=== PATIENT | female | born 1940 | race Caucasian/White ===

== ENCOUNTER 2018-08-29 11:19 | Outpatient (CLI) | payer MEDICARE, OTHER ==
[2018-08-29] MEDS ORDERED: Sodium Chloride 0.9% 15 ML NEB ONE (15:00)
--- NOTE | 2018-08-30 01:19 | HP ---
HISTORY OF PRESENT ILLNESS: Ms. Mila Lopez is a very pleasant 78-year-old, who presents to the [facility] for evaluation of multiple nonhealing surgical wounds of the abdomen in the midline subsequent to surgery for an incarcerated ventral hernia in [place], followed by a second surgical procedure in [place] when the patient was found to have fecal material draining from her surgical wound. The patient states that she received wound care in [place] for approximately 1 year. The patient has returned home to [place] and was referred to the Wound Center by Dr. Beatty on 08/19/2018. PAST MEDICAL HISTORY: 1. Hypothyroidism. 2. History of hypertension. PAST SURGICAL HISTORY: 1. Gastric bypass with Stacie-en-Y. 2. Revision of gastric bypass. 3. Cholecystectomy. 4. Left knee surgery. 5. Removal of uterine polyps. 6. Tummy tuck. 7. Surgery for incarcerated ventral hernia in [place]. 8. Exploratory laparotomy in [place] following incarcerated hernia repair with mesh. 9. Cataract surgery. MEDICATIONS: 1. Vitamin B12. 2. Biotin. 3. Vitamin C. 4. Systane. 5. Coenzyme Q10. 6. [place]-3. 7. Potassium chloride. 8. Bupropion. 9. Levothyroxine. 10. Clonazepam. 11. Calcium 600 plus vitamin D. 12. Multivitamin. 13. Loperamide. 14. Motrin. 15. Cetirizine. ALLERGIES: NO KNOWN DIAGNOSED ALLERGIES. SOCIAL HISTORY: Negative for tobacco or EtOH use. FAMILY HISTORY: Significant for coronary artery disease. The patient states that her mother and father were both diagnosed with coronary artery disease. PHYSICAL EXAMINATION: VITAL SIGNS: Temperature 98.1, pulse 65, respirations 20, blood pressure 175/77. GENERAL: A 78-year-old female, lying on table in examination room, in no acute distress. HEENT: Normocephalic and atraumatic. NECK: No nuchal rigidity. CHEST: Clear to auscultation. CV: Regular rate and rhythm. ABDOMEN: Soft. Multiple nonhealing surgical wounds of the abdomen in the midline are present. Two of the wounds contain mesh within the wound margins. No grossly purulent drainage is associated with any of the wounds. No erythema of the skin surrounding any of the wounds is present. No maceration of the skin of the periwound of any of the wounds is noted. EXTREMITIES: No clubbing or cyanosis. NEURO: Grossly nonfocal. ASSESSMENT AND PLAN: 1. Multiple nonhealing surgical wounds of abdomen in the midline as described above. The present dressing changes of Aquacel Ag, gauze and Mepilex border will be continued 3 times per week after cleansing and irrigation with the assistance of home health. I will contact the patient's surgeon in order to discuss the treatment plan. I will see Ms. Lopez again in 3 weeks. The patient understands and is in agreement with the preceding plan of care. No antibiotics will be prescribed today based upon the appearance of the wounds. 2. Hypothyroidism. 3. History of hypertension. Job ID: [id number]
== END 2018-08-29 11:20 | disposition home or self-care (01) ==
LOC: WCC 11:19
PROVIDERS: ATTEND Family Medicine
DX: T81.89XD Other complications of procedures, not elsewhere classified, subsequent encounter (principal); E03.9 Hypothyroidism, unspecified; I10 Essential (primary) hypertension; Z98.890 Other specified postprocedural states
CPT/HCPCS: 97139; 97602; G0463; 99203; A4218

== ENCOUNTER 2018-09-18 12:17 | Outpatient (CLI) | payer MEDICARE, OTHER ==
[2018-09-18] MEDS ORDERED: Gadobenate Dimeglumine 529 MG/1 ML (20ML VIAL) ONE (13:25)
--- NOTE | 2018-09-18 16:02 | MRI ---
BRAIN MRI WITH AND WITHOUT CONTRAST 09/18/18 HISTORY: Meningioma. TECHNIQUE: Multiplanar and multisequence MR imaging of the brain is provided with and without contrast. FINDINGS: The diffusion weighted imaging demonstrates no evidence for acute infarction. There is an extra-axial mass medial to the right occipital lobe which measures 1.8 x 2.1 x 2.3 cm. It demonstrates heterogeneity on the FLAIR imaging, primarily hyperintense with central decreased FLAIR signal. On the T2 imaging, it is primarily isointense with an area of decreased signal intensity. Gr adient echo imaging demonstrates a few foci of blooming artifact within the lesion suggesting calcifi cation. Gradient echo imaging demonstrates no additional areas of blooming artifact. The above descri bed extra-axial mass medial to the right occipital lobe demonstrates avid enhancement. Findings are most consistent with a meningioma. Postcontrast imaging demonstrates no additional foci of abnormal enhancement. There is no midline shift. No ventricular enlargement. Arterial flow voids at the axial level of the skull base appear grossly unremarkable on the T2 weighted imaging. There are a few foci of increased signal intensity within the periventricular white matter, suggesting a mild degree of small vessel di sease. IMPRESSION: Enhancing extra-axial mass medial to the right occipital lobe, with signal characteristics most consi stent with a meningioma. If the patient's prior imaging can be made available for comparison, an addendum can be placed on thi s report regarding its size on the prior study. POS: ARLETTE
--- NOTE | 2018-09-18 16:08 | MRI ---
MRI CERVICAL SPINE: Date; 09/18/18 COMPARISON: None. HISTORY: Neck pain and stiffness, imbalance. TECHNIQUE: Multiplanar, multisequence MR imaging of the cervical spine obtained without contrast. FINDINGS: Incompletely assessed extra-axial mass noted in right occipital lobe most consistent with a meningiom a, better assessed on 09/18/18 brain MRI. The sagittal STIR imaging demonstrates no focal area of osseous marrow edema. There is mild degenerative change at the atlantoaxial interspace. C2-3: Mild bilateral facet hypertrophy. No significant central canal or neural foraminal stenosis. C3-4: Mild facet hypertrophy on the left. No significant central canal or neural foraminal stenosis. C4-5: Central annular tear. Mild disc bulge with partial effacement of ventral thecal sac and minima l central canal stenosis. Mild bilateral facet hypertrophy with no significant neural foraminal steno sis. C5-6: Disc space narrowing, disc desiccation, mild disc bulge, and central annular tear with mild ce ntral canal stenosis. Mild facet hypertrophy with no significant neural foraminal stenosis on either side. C6-7: Disc desiccation. Mild facet hypertrophy bilaterally with no significant central canal or neur al foraminal stenosis. C7-T1: No significant central canal or neural foraminal stenosis. No focal area of abnormal signal intensity is identified within the cervical cord. IMPRESSION: Degenerative change noted within the cervical spine, particularly C4-5 and C5-6 as detailed above. POS: ARLETTE
== END 2018-09-18 12:18 | disposition home or self-care (01) ==
LOC: BICMRI 12:17
PROVIDERS: ATTEND Psychiatry & Neurology Neurology
DX: D32.9 Benign neoplasm of meninges, unspecified (principal); R26.89 Other abnormalities of gait and mobility; M47.812 Spondylosis without myelopathy or radiculopathy, cervical region; R22.0 Localized swelling, mass and lump, head
CPT/HCPCS: 70553; 72141; 82565; A9579

== ENCOUNTER 2018-09-19 11:35 | Outpatient (CLI) | payer MEDICARE, OTHER ==
--- NOTE | 2018-09-19 12:34 | PRG ---
DATE OF SERVICE: 09/19/2018 HISTORY: Ms. Mila Lopez is a very pleasant 78-year-old, who presents to the wound center for evaluation of multiple nonhealing surgical wounds of the abdomen in the midline subsequent to surgery for an incarcerated ventral hernia in [place] followed by second surgical procedure in [place] when the patient was found to have fecal material draining from her surgical wound. The patient stated that she received wound care in [place] for approximately 1 year. The patient subsequently returned home to [place] and was referred to the wound center by Dr. Beatty on 08/19/2018. After being seen in the wound center, dressing changes of Aquacel Ag, 4x4s, and Mepilex border were initiated. These dressing changes have been performed 3 times per week after cleansing and irrigation with the assistance of Home Health. PHYSICAL EXAMINATION: VITAL SIGNS: Temperature 97.7, pulse 81, respirations 18, and blood pressure 133/69. ABDOMEN: Soft. Three nonhealing surgical wounds of the abdomen in the midline are present. Mesh is visible within the most superior wound. No grossly purulent drainage is associated with any of the wounds. No erythema of the skin surrounding any of the wounds is present. No maceration of the skin of the periwound of any of the wounds is noted. The dimensions of two of the wounds have decreased since the patient's last visit. ASSESSMENT AND PLAN: 1. Multiple nonhealing surgical wounds of abdomen in the midline as described above. Dressing changes of Aquacel Ag, gauze, and Mepilex border will be continued 3 times per week after cleansing and irrigation with the assistance of Home Health. I will discuss the treatment plan with the patient's surgeon Dr. Eliz Trujillo, who is located in [place], [place]. I have asked the patient to return to clinic in 2 weeks. 2. Hypothyroidism. 3. Hypertension. Job ID: [id number]
[2018-09-19] MEDS ORDERED: Sodium Chloride 0.9% 15 ML NEB ONE (17:44)
== END 2018-09-19 11:36 | disposition home or self-care (01) ==
LOC: WCC 11:35
PROVIDERS: ATTEND Family Medicine
DX: T81.89XD Other complications of procedures, not elsewhere classified, subsequent encounter (principal); E03.9 Hypothyroidism, unspecified; I10 Essential (primary) hypertension
CPT/HCPCS: A4218

== ENCOUNTER 2018-10-10 09:43 | Outpatient (CLI) | payer MEDICARE, OTHER ==
--- NOTE | 2018-10-10 11:24 | PRG ---
DATE OF SERVICE: 10/10/2018 HISTORY: Ms. Mila Lopez is a very pleasant 78-year-old who presents to the Wound Center for evaluation of multiple nonhealing surgical wounds of the abdomen in the midline subsequent to surgery for an incarcerated ventral hernia in [place] followed by a second surgical procedure in [place] when the patient was found to have fecal material draining from her surgical wound. The patient stated that she received wound care in [place] for approximately 1 year. The patient subsequently returned home to [place] and was referred to the Wound Center by Dr. Beatty on 08/19/2018. After being seen in the Wound Center, dressing changes of Aquacel Ag, 4x4s, and Mepilex Border were initiated. These dressing changes have been performed 3 times per week after cleansing and irrigation with the assistance of Home Health. PHYSICAL EXAMINATION: VITAL SIGNS: Temperature 97.6, pulse 72, respirations 20, and blood pressure 145/82. ABDOMEN: Soft. Only one nonhealing surgical wound of the abdomen in the midline remains. Mesh is visible within the wound margins. Nonviable tissue present within the wound margins was debrided with an excisional full-thickness debridement with the use of scissors. No purulent drainage is associated with the wound. No erythema of the skin surrounding the wound is present. No maceration of the skin of the periwound is noted. ASSESSMENT AND PLAN: 1. Multiple nonhealing surgical wounds of the abdomen in the midline as described above. As stated above, only one nonhealing surgical wound of the abdomen in the midline remains. Dressing changes of Aquacel Ag and Mepilex Border are to be performed 3 times per week after cleansing and irrigation with the assistance of Home Health. I have discussed the treatment plan with the patient's surgeon, Dr. Eliz Trujillo, who is located in [place], [place]. Ms. Lopez as per her request will return to the Wound Center on an as-needed basis. 2. Hypothyroidism. 3. Hypertension. Job ID: [id number]
[2018-10-10] MEDS ORDERED: Sodium Chloride 0.9% 15 ML NEB ONE (15:00)
== END 2018-10-10 09:44 | disposition home or self-care (01) ==
LOC: WCC 09:43
PROVIDERS: ATTEND Family Medicine
DX: T81.89XD Other complications of procedures, not elsewhere classified, subsequent encounter (principal); E03.9 Hypothyroidism, unspecified; I10 Essential (primary) hypertension

== ENCOUNTER 2018-12-03 04:15 | Inpatient (IN) | payer MEDICARE, OTHER ==
[2018-12-03 04:40] LABS: #Eosinphils 0.1 thou/uL (0.0-0.7); #Lymphocytes 1.1 thou/uL (1.20-3.40); #Monocytes 0.7 thou/uL (0.11-0.59); #Neutrophils 3.8 thou/uL (1.40-6.50); %Basophils 0.5 % (0.0-1.0); %Lymphocytes 19.8 % (21.0-51.0); %Monocytes 11.8 % (0.0-10.0); %Neutrophils 66.9 % (42.0-75.0); Hemoglobin 12.9 g/dL (12.0-16.0); Mean Corpuscular HGB CONC 32.1 g/dL (32.0-36.0); Mean Corpuscular Hemoglobin 28.4 pg (27.0-31.0); Mean Corpuscular Volume 88.6 fL (78.0-98.0); Mean Platelet Volume 7.5 fL (7.4-10.4); Platelet Count 226 thou/uL (130-400); RBC Distribution Width 13.9 % (11.5-14.5); Red Blood Cell (RBC) Count 4.53 mill/uL (4.20-5.40); White Blood Cell (WBC) Count 5.7 thou/uL (4.8-10.8)
[2018-12-03] MEDS ORDERED: Morphine 4 MG/ML VIAL ONE ×2 (04:45→11:01)
[2018-12-03] MEDS ORDERED: Ondansetron PF 4 MG/2 ML Vial ONE ×2 (04:45→09:53)
[2018-12-03 05:01] LABS: ALT (SGPT) 23 U/L (8-55); AST (SGOT) 24 U/L (5-34); Alkaline Phosphatase 128 U/L (40-150); Anion Gap 15 mmol/L (10-20); BUN (Urea Nitrogen) 17 mg/dL (9.8-20.1); Calc. Creatinine Clearance 0 mL/min (70-130); Calcium 9.6 mg/dL (7.8-10.44); Carbon Dioxide 25 mmol/L (23-31); Chloride 101 mmol/L (98-107); Estimated GFR-MDRD 77; Globulin 4.1 g/dL (2.4-3.5); Glucose 114 mg/dL (83-110); Potassium 3.6 mmol/L (3.5-5.1); Protein, Total 8.1 g/dL (6.0-8.3); Sodium 137 mmol/L (136-145)
[2018-12-03 05:22] LABS: Bilirubin Negative (Negative); Blood, Urine Negative (Negative); Clarity CLEAR (Clear); Glucose, Urine (Dipstick) Negative (Negative); Leukocyte Small (Negative); Nitrite Negative (Negative); Protein, Urine (Dipstick) Trace mg/dL (Neg-Trace); Specific Gravity, Urine 1.017 (1.002-1.036)
[2018-12-03 05:24] LABS: Bacteria/HPF None Seen HPF (None Seen); Hyaline Casts/LPF 0-3 HYALINE CAST LPF (0-3 Hyaline); Pathc Cast-AUWi Flag 0.27 (0-2.49); Squamous Epithelial 0-3 HPF (0-3)
[2018-12-03] MEDS ORDERED: Ciprofloxacin HCL/Dexameth Otic Drops 7.5 ml Bottle ONE (06:53)
[2018-12-03] MEDS ORDERED: metroNIDAZOLE 500 MG/100 ML BAG ONE (07:43)
--- NOTE | 2018-12-03 08:07 | HP ---
PRIMARY CARE PROVIDER: Theresa Beatty DO HISTORY OF PRESENT ILLNESS: Referred to [facility] by [facility] for abdominal pain. The patient has had abdominal pain and swelling for 3 to 4 days. She has an ileostomy and she has had nausea without emesis. She has had output from her ileostomy today. She has had no fever or chills. She has had no blood in her ostomy drainage. She was seen and examined. CAT scan was done. She was referred to Dr. Griffin, general surgery, who referred the admission to [facility]. PAST MEDICAL HISTORY: Includes hypothyroidism on medicines, anxiety and depression. CURRENT MEDICATIONS: 1. Bupropion 100 mg 3 times a day. 2. Levothyroxine 200 mcg a day. 3. Clonazepam 0.5 mg once a day. 4. Questran 4 g daily. 5. Zyrtec 10 mg twice a day. PAST SURGICAL HISTORY: She had an incarcerated ventral hernia, which costs to emergency surgery. She ended up with a colectomy and ileostomy. This was several months ago. She had a gastric bypass 20 years ago. She has had multiple ventral hernia repairs in the past. She has had a tummy tuck in the past. ALLERGIES: NO MEDICAL ALLERGIES. FAMILY HISTORY: Father of coronary artery disease. He had hypertension. Mother after valve replacement post scarlet fever as a child. She also had hypertension. SOCIAL HISTORY: She is . Full code status. Daughter, Jessie Shook is the surrogate decision maker. She has no tobacco. No alcohol use. REVIEW OF SYSTEMS: GENERAL: No headaches, dizziness or fainting. EYES: No double vision, blurred vision or flashing lights. EAR, NOSE AND THROAT: No ear pain or drainage. No nasal bleeding. No trouble swallowing. CARDIAC: No chest pain, orthopnea, or paroxysmal nocturnal dyspnea. RESPIRATIONS: Occasional shortness of breath. No wheezing. No cough. No history of asthma. GASTROINTESTINAL: See present illness. GENITOURINARY: No hematuria or dysuria. MUSCULOSKELETAL: No pain or swelling in arms or legs. NEUROLOGICAL: No strokes, seizures, or focal weakness. PSYCHIATRIC: She has anxiety and depression, stable on current medications. SKIN: She has easy bruising. No current bruising. No rashes. HEME/LYMPH: No tender or swollen lymph nodes in the axilla, inguinal or cervical area. PHYSICAL EXAMINATION: GENERAL: She is alert, pleasant, cooperative lady, oriented x3. VITAL SIGNS: Blood pressure 110/57, pulse ranging from 53-86, respirations 16, temperature 97.5, O2 saturation high 90s on room air. HEENT: Examination of her head, eyes, ears, nose, and throat revealed pupils are equal, round, and reactive to light. Extraocular movements are intact. Sclerae are white. Tympanic membranes clear. Nose is clear. Oral mucous membranes are wet. Dental hygiene is good. NECK: Supple without jugular venous distention, adenopathy or thyromegaly. CHEST: Clear to auscultation and percussion. HEART: Had a regular rate and rhythm. First and second heart sounds are clear. There are no appreciated murmurs or gallops. ABDOMEN: Reveals an ileostomy in the lower abdomen. There are multiple scars. There were a couple of nonhealing wounds bandaged in the epigastrium. She is nontender and bowel sounds are present. No mass was palpated. No peritoneal findings were found. No bruit. EXTREMITIES: Reveal no cyanosis, clubbing, or edema. PULSES: Carotid, radial, femoral, and dorsalis pedis pulses intact and symmetric. SKIN: Warm and dry. No bruises or rash were appreciated. HEME AND LYMPH: Reveals no tender or swollen lymph nodes in axilla, inguinal or cervical area. No petechial hemorrhages, nasal beds or mucous membranes. NEUROLOGIC: Cranial nerves 2 through 12 are intact. Deep tendon reflexes symmetric. Moves all extremities. DIAGNOSTIC STUDIES: Chest x-ray, none presented, one is ordered. EKG, none presented, one is ordered. Abdominal CT scan has been done that shows a large amount of small bowel and a ventral hernia, but no definite obstruction. UA shows 11-20 white cells, but no significant esterase or nitrite. Comprehensive metabolic profile is really unremarkable except for glucose of 114. CBC shows a white count of 5.7, hemoglobin 12.9, platelet count 226, with no neutrophilia. ADMITTING DIAGNOSES: 1. Abdominal pain. 2. Ventral hernia with small bowel contents in the ventral hernia. 3. Ileostomy. 4. Hypothyroidism. 5. Anxiety and depression. PLAN: N.p.o. IV antibiotics as ordered by Dr. Griffin. We will discuss case with Dr. Griffin and proceed from there. I anticipate 3-4 days admission for evaluation and treatment of this patient. Job ID: [id number]
--- NOTE | 2018-12-03 08:21 | CT ---
CT ABDOMEN AND PELVIS WITH IV CONTRAST: HISTORY: Abdominal pain with decreased colostomy output. History of ileostomy and colectomy with complication s related to an incarcerated hernia. FINDINGS: The lung bases are clear. The gallbladder is surgically absent. There is mild intrahepatic and extrahepatic biliary ductal dil atation, likely related to the patient's post cholecystectomy state. The spleen, pancreas, and adrenal glands are normal appearing. The kidneys are normal appearing. There is a large anterior abdominal wall hernia, containing a majority of the small bowel. There is post surgical change of a partial colectomy, with residual transverse colon, splenic colon, descendin g colon, sigmoid colon, and rectum remaining. The are scattered diverticula involving the colon with out evidence of active diverticulitis. There are numerous loops of small bowel within the central ab domen that demonstrates wall thickening with surrounding mesenteric edema. There is no evidence to s uggest prominent dilatation, to suggest partial small bowel obstruction. There is post surgical change of a prior gastric bypass. A small bowel anastomosis is seen within th e hernia sac. Ileocolonic anastomotic is seen within the left mid abdomen. There is a left lower qu adrant loop ileostomy. The bladder is decompressed. The visualized aspects of the uterus demonstrate multiple small fibroid s. No free fluid is evident. No definite acute osseous abnormality is evident. There is scattered degenerative and osteoarthritic change. There is diffuse osteopenia. IMPRESSION: 1. Large anterior abdominal wall hernia, containing a majority of the patient's small bowel, with nu merous loops of small bowel demonstrating wall thickening, with surrounding mesenteric edema. Findin gs are suspicious for diffuse enteritis that may be infectious, inflammatory, or ischemic in etiology ; however, there appears to be good opacification of the mesenteric vessels on this examination. Inf lammatory or infectious etiology are favored. 2. Post surgical change of gastric bypass, cholecystectomy, partial colectomy, and left lower quadra nt diverting ileostomy. 3. Colonic diverticulosis. 4. Fibroid uterus. 5. Diffuse osteopenia and scattered degenerative change. POS: BH
[2018-12-03] MEDS ORDERED: Morphine 4 MG/ML VIAL SLOW IVP PRN (09:50)
[2018-12-03] MEDS ORDERED: Ondansetron ODT 4 MG TAB PO PRN (09:50)
[2018-12-03] MEDS ORDERED: Zolpidem Tartrate 5 MG TAB PO PRN (09:50)
[2018-12-03] MEDS ORDERED: Acetaminophen 650 MG Suppository PR PRN (09:50)
--- NOTE | 2018-12-03 10:05 | RAD ---
EXAM: Chest 2 views: HISTORY: Small bowel obstruction COMPARISON: 09/25/2016 FINDINGS: There is a normal-sized cardiomediastinal silhouette. There is no evidence of consolidation, mass, or pleural effusion. Degenerative changes are seen in the spine. IMPRESSION: No evidence of acute cardiopulmonary disease
[2018-12-03] MEDS ORDERED: ISOVUE-370 76%-LOCM 1 ML ONE (13:41)
--- NOTE | 2018-12-03 14:48 | CON ---
DATE OF CONSULTATION: CHIEF COMPLAINT: Abdominal pain. HISTORY: A 78-year-old female, who about 25 years ago underwent an open Stacie-en-Y gastric bypass in [place], she had some type of obstruction requiring a revision couple of years later, then developed incisional hernias that was repaired without mesh. She then underwent an abdominoplasty and that was with mesh and she developed a mesh erosion into the bowel. With that, she had fistulas and they brought up the colostomy. In 2016, she had an incarcerated ventral hernia that occurred in [place]. It was repaired in August. She had a fistula to the small bowel that was resected and she was discharged. Recently, she was on vacation at [facility], when she developed stool fistula from her abdominal wall. She was taken back. She had a necrotic anterior abdominal wall, this was all resected. They had to do a right hemicolectomy in order to restore an ostomy and they brought up the ileostomy on the left side of her abdomen. Since then, she has been slowly healing with home health and wound care. She does have a small sinus tract on the anterior abdominal wall that she says occasionally drains greenish enteric fluid. Her ostomy has been working. She denies any fever. No bleeding. PAST MEDICAL HISTORY: Hypothyroidism, depression, anxiety, rheumatoid arthritis, uterine prolapse, and rectocele. MEDICATIONS: She is on; 1. Synthroid. 2. Multivitamins. 3. Ambien. ALLERGIES: SHE HAS NO KNOWN DRUG ALLERGIES. SOCIAL HISTORY: She lives alone in [place]. No tobacco. No alcohol. She is retired. FAMILY HISTORY: Heart disease, hypertension, and Parkinson disease. PHYSICAL EXAMINATION: VITAL SIGNS: She is afebrile, pulse 59, blood pressure 134/75. GENERAL: She is awake, alert, does not appear to be in any distress. HEENT: Unremarkable. LUNGS: Clear. HEART: Regular rate and rhythm. ABDOMEN: She has complete loss of abdominal domain. The anterior abdominal wall is gone, so she had basically a large hernia. She has an ileostomy on the left lateral abdomen that is pink, healthy-appearing, and there is enteric fluid within the bag. She does have about 4 mm sinus tract on the midline that has minimal drainage and no obvious enteric fluid. LABORATORY DATA: White count 5.7, hemoglobin and hematocrit of 12 and 40, platelet count 226. Electrolytes are fine, but an elevated glucose at 114. Her CT scan shows loss of the anterior abdominal wall with all over viscera within this hernia. There is some remaining colon on the left side. There is some wall thickening of the several loops of small bowel with some mesenteric edema but no dilatation. There is no evidence of a small-bowel obstruction. ASSESSMENT: Loss of abdominal domain, abdominal pain of unclear etiology. No surgical indication at this time. PLAN: IV hydration, perhaps a GI consult. Job ID: [id number]
[2018-12-03 17:11] VITALS: BMI 35.2
[2018-12-03] MEDS: D5 1/2 NS w/20 mEq KCL 1,000 ML IV SCH ×3 (17:11→22:43)
[2018-12-04] MEDS ORDERED: Sodium Chloride 0.9% 500 ML IV SCH (00:45)
[2018-12-04] MEDS: D5 1/2 NS w/20 mEq KCL 1,000 ML IV SCH ×2 (01:50→07:57)
[2018-12-04 05:23] LABS: ALT (SGPT) 15 U/L (8-55); AST (SGOT) 19 U/L (5-34); Alkaline Phosphatase 94 U/L (40-150); Anion Gap 8 mmol/L (10-20); BUN (Urea Nitrogen) 9 mg/dL (9.8-20.1); Band 2 % (5-11); Bilirubin, Total 0.4 mg/dL (0.2-1.2); Calc. Creatinine Clearance 101 mL/min (70-130); Calcium 8.2 mg/dL (7.8-10.44); Carbon Dioxide 27 mmol/L (23-31); Chloride 107 mmol/L (98-107); Eosinophils 2 % (0-10); Estimated GFR-MDRD Greater than 90; Globulin 2.9 g/dL (2.4-3.5); Glucose 108 mg/dL (83-110); Lymphocytes 28 % (21-51); MDiff Complete? YES; Mean Corpuscular HGB CONC 31.9 g/dL (32.0-36.0); Mean Corpuscular Volume 90.8 fL (78.0-98.0); Mean Platelet Volume 7.5 fL (7.4-10.4); Monocytes 13 % (0-10); Neutrophil 55 % (42-75); Platelet Count 181 thou/uL (130-400); Platelet Morphology Comment Appears Adequate; Potassium 3.7 mmol/L (3.5-5.1); Protein, Total 5.9 g/dL (6.0-8.3); RBC Distribution Width 13.8 % (11.5-14.5); Red Blood Cell (RBC) Count 3.46 mill/uL (4.20-5.40); Sodium 138 mmol/L (136-145); White Blood Cell (WBC) Count 2.8 thou/uL (4.8-10.8)
[2018-12-04] MEDS ORDERED: Sodium Chloride 0.9% 1,000 ML IV SCH (14:00)
[2018-12-04 14:24] LABS: #Lymphocytes 0.8 thou/uL (1.20-3.40); #Monocytes 0.3 thou/uL (0.11-0.59); #Neutrophils 1.2 thou/uL (1.40-6.50); %Lymphocytes 35.1 % (21.0-51.0); %Monocytes 12.2 % (0.0-10.0); %Neutrophils 50.7 % (42.0-75.0); Hemoglobin 10.2 g/dL (12.0-16.0); Mean Corpuscular HGB CONC 31.3 g/dL (32.0-36.0); Mean Corpuscular Hemoglobin 28.5 pg (27.0-31.0); Mean Corpuscular Volume 90.8 fL (78.0-98.0); Mean Platelet Volume 7.2 fL (7.4-10.4); Platelet Count 187 thou/uL (130-400); RBC Distribution Width 13.7 % (11.5-14.5); Red Blood Cell (RBC) Count 3.57 mill/uL (4.20-5.40); White Blood Cell (WBC) Count 2.4 thou/uL (4.8-10.8)
--- NOTE | 2018-12-04 15:02 | PRG ---
DATE OF SERVICE: 12/04/2018 SUBJECTIVE: The patient is seen and examined at the bedside. She feels somewhat better. Her abdominal pain improved since yesterday. No nausea. No vomiting. She has liquidy stool in her ostomy bag. OBJECTIVE: VITAL SIGNS: Blood pressure is 91/53, pulse is 42, temperature 97.6, respirations 18, O2 saturation is 96% on room air. HEENT: Her head is atraumatic and normocephalic. Eyes are PERRLA. Sclerae are nonicteric. Oral mucosa is somewhat dry. NECK: Supple. LUNGS: Clear. HEART: S1 and S2. Bradycardic. No S3. No S4. No any murmur. ABDOMEN: Soft. She has ileostomy bag on the left side with liquid stool. There is no guarding. No masses. EXTREMITIES: No clubbing, cyanosis, or edema. NEUROLOGIC: She is alert and oriented x4. There is no any motor or sensory deficits present. Cranial nerves are intact. LABORATORY DATA: Labs showed white count of 2.8, hemoglobin 10.0, hematocrit 31.5, platelet count is 181,000. Electrolytes within normal limits. BUN 9, creatinine 0.59, total protein 5.9, albumin 3.0. The rest of chemistry is within normal limits. IMPRESSION: 1. Abdominal pain of unclear etiology with hemoglobin drop overnight from 12.9 to 10.0 this morning likely it is just delusional with IV fluid use. 2. Normocytic anemia. Sounds like this is her baseline. The current hemoglobin and hematocrit level reflects her normal state of ventral hernia with small bowel content in the ventral hernia. 3. Ileostomy. 4. Hypothyroidism. 5. Anxiety and depression. 6. Bradycardia. EKG was done and it showed sinus bradycardia, but the patient had some hypotensive episode which is felt to be secondary to morphine. PLAN: Plan is to stop using morphine. Sent her to telemetry bed to monitoring bed. Get GI consult with Dr. Shepherd for further evaluation of her abdominal pain and get additional set of hemoglobin and hematocrit today. Job ID: [id number]
--- NOTE | 2018-12-04 16:35 | PRG ---
DATE OF SERVICE: SUBJECTIVE: The patient reports she is feeling a lot better today. She is still having some pain, but it is better. No nausea or vomiting. Ostomy is working well. OBJECTIVE: GENERAL: She is awake, alert, does not appear to be in any distress. VITAL SIGNS: Temperature is 97.6, pulse is 47, blood pressure 100/63. ABDOMEN: Soft, nondistended, and nontender. Ostomy is healthy and working. LABORATORY DATA: Her white count is only 2.4, hemoglobin and hematocrit of 10 and 32, platelet count 187. Electrolytes look fine. PLAN: Recommend possible GI consultation. Job ID: [id number]
[2018-12-04] MEDS: Sodium Chloride 0.9% 1,000 ML IV SCH ×2 (20:46→22:15)
[2018-12-05 07:03] LABS: #Monocytes 0.3 thou/uL (0.11-0.59); #Neutrophils 0.9 thou/uL (1.40-6.50); %Basophils 0.8 % (0.0-1.0); %Eosinophils 1.6 % (0.0-10.0); %Lymphocytes 43.3 % (21.0-51.0); %Monocytes 13.3 % (0.0-10.0); Hemoglobin 10.1 g/dL (12.0-16.0); Mean Corpuscular HGB CONC 31.6 g/dL (32.0-36.0); Mean Corpuscular Hemoglobin 28.5 pg (27.0-31.0); Mean Corpuscular Volume 90.3 fL (78.0-98.0); Mean Platelet Volume 7.2 fL (7.4-10.4); Platelet Count 177 thou/uL (130-400); RBC Distribution Width 13.6 % (11.5-14.5); Red Blood Cell (RBC) Count 3.55 mill/uL (4.20-5.40); White Blood Cell (WBC) Count 2.3 thou/uL (4.8-10.8)
[2018-12-05 07:29] LABS: Anion Gap 9 mmol/L (10-20); BUN (Urea Nitrogen) 5 mg/dL (9.8-20.1); Calc. Creatinine Clearance 113 mL/min (70-130); Calcium 8.3 mg/dL (7.8-10.44); Carbon Dioxide 27 mmol/L (23-31); Chloride 107 mmol/L (98-107); Estimated GFR-MDRD Greater than 90; Glucose 88 mg/dL (83-110); Iron 20 ug/dL (50-170); Iron Binding Capacity, Total 291 mcg/dL (265-497); Magnesium 1.7 mg/dL (1.6-2.6); Phosphorus 2.9 mg/dL (2.3-4.7); Potassium 3.7 mmol/L (3.5-5.1); Sodium 139 mmol/L (136-145)
[2018-12-05 08:00] LABS: Folate (Folic Acid) 15.9 ng/mL (7.0-31.4)
[2018-12-05] MEDS ORDERED: IRON SUCROSE COMPLEX 100 MG/5 ML SLOW IVP SCH (09:30)
[2018-12-05] MEDS ORDERED: Iron, Sodium Ferric Gluconate 250 MG in Sodium Chloride 0.9% 100 ML IVPB SCH (09:45)
--- NOTE | 2018-12-05 10:13 | CON ---
DATE OF CONSULTATION: 12/04/2018 REASON FOR CONSULTATION: Abdominal pain, suggestive General Surgery. HISTORY OF PRESENT ILLNESS: Ms. Lopez is a 78-year-old female, who has extensive history of GI surgery including remote history of gastric bypass many years ago, which she thinks was a Stacie-en-Y bypass, and then a surgery in 2017 for incarcerated hernia with gangrene, which subsequently dehisced and required 4 corrective surgeries. It seems from the op reports she has maybe 10 cm of small bowel loss, quite a bit of transverse colon was lost and ultimately she ended up with an ileostomy. She has done well with this for many years and takes some electrolytes and vitamins at times and Questran at home, but she came to the hospital, was admitted yesterday after having pain since last Sunday in her abdomen, which is generalized. She has a little bit of decreased ileostomy output and her home health nurse thought maybe with her persistent symptoms that maybe she should go to the emergency room to make sure she did not have an obstruction as she was told she was at high risk for obstructions. Here at the hospital, she had lab work that showed only a mild anemia, normal comprehensive metabolic profile, normal urinalysis except for some white blood cells, and she had a CAT scan that showed a large anterior abdominal wall hernia with some small bowel loops showing some thickening and some mesenteric edema suspicious for enteritis. The etiology was unclear. Apparently, there was good opacification of mesenteric vessels. No signs of clot on that study. Also, she had signs of previous gastric bypass, cholecystectomy, and partial colectomy, and left lower quadrant diverting ileostomy. Diffuse osteopenia noted on x-ray as well. She was placed in a hospital, placed n.p.o. She was seen by General Surgery, did not find any significant needs for surgery. She was treated with ciprofloxacin for few days for couple of doses apparently. In the emergency room, she may have gotten antibiotics as well, looks like she had a dose of Cipro and Flagyl there. She has done well. She really does not have any pain now. She has been n.p.o. for 2 days. No stool studies have been obtained. Last night, she has moved downstairs to telemetry because she dropped her heart rate and became little bradycardic and dropped her blood pressure. The nurse, however, notes this was after giving four of morphine last night. She has been doing well since being on telemetry. PAST MEDICAL HISTORY: She sees Dr. Beatty in [place] as a primary physician. She has a history of thyroid disease, hypothyroidism, history of anxiety, and depression. PAST SURGICAL HISTORY: Includes the incarcerated ventral hernia in 2017 in [place] which lead to emergency surgery and 4 surgeries after that and ultimately ileostomy. She has had a cholecystectomy. She has had a gastric bypass about 20 years ago. It sounds like a Stacie-en-Y bypass, and she has had some orthopedic surgery before too. ALLERGIES: NONE TO MEDICATIONS, SOME AEROALLERGENS. FAMILY HISTORY: Father of coronary artery disease, had hypertension. Mother of valve replacement, post scarlet fever as a child, and she also had hypertension. SOCIAL HISTORY: She is . She lives here in [facility]. She does not smoke. She does not use drugs. She does not drink alcohol. REVIEW OF SYSTEMS: She has been feeling quite fatigued lately but cannot put her finger on it. She has no evidence of rashes, headaches, dizziness, spells, fainting, fever, chills, cough, shortness of breath, reflux, myalgias, arthralgias, dysphagia, odynophagia, chest pain, shortness of breath, dyspnea on exertion, PND, asthma, coughing, wheezing, melena, hematochezia, hematemesis, dysuria, frequency, urgency, vaginal bleeding, or adenopathy. MEDICATIONS: Medications here, 1. Tylenol. 2. Zofran p.r.n. 3. Normal saline 120 an hour. 4. Ambien p.r.n. With home medicines as discussed above. PHYSICAL EXAMINATION: GENERAL: The patient is resting comfortably in bed. She has pulse of 74. She has been afebrile since admission. She is in no distress. VITAL SIGNS: Temperature 97.4, afebrile since admission, pulse has been 55 to 52 since admission. Blood pressure 113/59. GENERAL: She is resting comfortably in bed. HEENT: Oropharynx, no lesions. NECK: Supple. LUNGS: Clear. HEART: Regular rate and rhythm without clicks or murmurs. ABDOMEN: Soft and nontender without rebound or guarding. There is absence of abdominal musculature. She had multiple scars. She does have Steri-Strips. She has a little bit of drainage from it that she states she did not drain intestinal content. She just keeps a little bit of 4 x 4 over that. She has a healthy-appearing ileostomy and positive bowel sounds. Abdomen is soft. There are no signs of incarcerated hernias. LABORATORY DATA AND DIAGNOSTIC STUDIES: CT scan report reviewed and imaging films reviewed. Laboratory studies: white count 3.4, hemoglobin 10.0, MCV 90, and platelet count 187. Differential normal, baseline hemoglobin has been between 12 and 10 since 2013. Chemistry profile normal. BUN and creatinine are 9 and 0.59. Liver function tests are normal. Iron was 56 in 2015. TSH was 3.77 in 2019. B12 was 749 in 2015. ASSESSMENT: 1. Admission with vague abdominal pain for about four days prior to admission, some possible enteritis shown on CAT scan, but no signs of an infarction, ischemia, or obstruction present. Pain has resolved. Differential diagnosis would probably include inflammatory or infection, although she could have had a mild ischemic event. It does not seem she has any vascular problems. She did not seem to have any twisting or hernias, at least on abdominal imaging. She has always had good output through her ostomy. She has never had any vomiting. 2. History of gastric bypass seemingly Stacie-en-Y, but it is unclear what type of gastric bypass she had. She does not recall. 3. Chronic fatigue per patient. 4. Anemia, mild chronic. RECOMMENDATIONS: 1. Advance diet as tolerated. 2. Dietary teaching with regard to anti-dumping diet. 3. Would check B12, thiamine, iron studies, magnesium, and phosphorus, replace as needed. 4. The patient should be on a multivitamin, thiamine, and iron throughout the rest of her life with some history of gastric bypass. Job ID: [id number]
[2018-12-05] MEDS ORDERED: PROVENTIL INHALER 6.7 G (200 INHALATIONS) INH PRN ×2 (15:20→15:45)
--- NOTE | 2018-12-05 15:23 | PDOC.PN ---
- Subjective Encounter Start Date: 12/05/18 Encounter Start Time: 15:21 Subjective: feels much better. abdominal pain dubois smuch improved -: no N/V.Nl stools and gas in ostomy. -: no fever/chills - Objective Resuscitation Status - Order Detail: 12/03/18 07:28 Resuscitation Status Routine Resuscitation Status: FULL: Full Resuscitation MAR Reviewed: Yes Vital Signs & Weight: Vital Signs (12 hours) Temp Pulse Resp BP Pulse Ox 12/05/18 12:00 65 18 136/73 97 12/05/18 08:00 97.4 F L 48 L 17 139/63 96 12/05/18 03:32 97.5 F L 60 18 132/59 L 98 Weight Weight 180 lb I&O: 12/04/18 12/05/18 12/06/18 06:59 06:59 06:59 Intake Total 1528 Output Total 1100 Balance 428 Result Diagrams: 12/05/18 06:32 12/05/18 06:32 Additional Labs: Laboratory Tests 12/03/18 12/04/18 12/04/18 04:29 04:38 14:15 Hgb 12.9 10.0 L 10.2 L Iron TIBC % Saturation Vitamin B12 Folate 12/05/18 12/05/18 12/05/18 06:32 06:32 06:32 Hgb 10.1 L Iron 20 L TIBC 291 % Saturation 7 L Vitamin B12 1196 H Folate 15.90 Phys Exam - Physical Examination Constitutional: NAD pale HEENT: PERRLA, moist MMs, sclera anicteric, oral pharynx no lesions, 2+ tonsils Neck: no nodes, no JVD, supple, full ROM Respiratory: no wheezing, no rales, no rhonchi, clear to auscultation bilateral Cardiovascular: RRR, no significant murmur Gastrointestinal: soft, non-tender, no distention, positive bowel sounds ostomy in place,large abdominal hernia w/u guarding/rigidity or tenderness Musculoskeletal: no edema, pulses present Neurological: non-focal, normal sensation, moves all 4 limbs Psychiatric: normal affect, A&O x 3 Skin: no rash Dx/Plan (1) Abdominal pain Code(s): R10.9 - UNSPECIFIED ABDOMINAL PAIN Status: Acute Comment: ? Infectious Vs Inflammatory Vs Ischemic pathology.Clinically better. Conseravtive management (2) Sinus bradycardia Code(s): R00.1 - BRADYCARDIA, UNSPECIFIED Status: Acute Comment: not on any jesús blocking agents (3) PETTY (iron deficiency anemia) Code(s): D50.9 - IRON DEFICIENCY ANEMIA, UNSPECIFIED Status: Chronic (4) Abdominal hernia Status: Chronic (5) Ileostomy in place Code(s): Z93.2 - ILEOSTOMY STATUS Status: Chronic (6) Hypothyroid Code(s): E03.9 - HYPOTHYROIDISM, UNSPECIFIED Status: Chronic - Plan DVT proph w/SCDs restart levothyroxine. BP stable.HR low at times but asymptomatic -: replace Iron by IV for low levels -: cont liquid diet and follow clinically.no indication for ABx -: appreciate GI and GS recs. -: monitor lytes.Hd stable * . Review of Systems - Review of Systems Constitutional: weakness, malaise. negative: fever, chills, sweats, other ENT: negative: Ear Pain, Ear Discharge, Nose Pain, Nose Discharge, Nose Congestion, Mouth Pain, Mouth Swelling, Throat Pain, Throat Swelling, Other Respiratory: negative: Cough, Dry, Shortness of Breath, Hemoptysis, SOB with Excertion, Pleuritic Pain, Sputum, Wheezing Cardiovascular: negative: chest pain, palpitations, orthopnea, paroxysmal nocturnal dyspnea, edema, light headedness, other Gastrointestinal: negative: Nausea, Vomiting, Abdominal Pain, Diarrhea, Constipation, Melena, Hematochezia, Other Genitourinary: negative: Dysuria, Frequency, Incontinence, Hematuria, Retention , Other Musculoskeletal: negative: Neck Pain, Shoulder Pain, Arm Pain, Back Pain, Hand Pain, Leg Pain, Foot Pain, Other Skin: negative: Rash, Lesions, Shad, Bruising, Other Neurological: negative: Weakness, Numbness, Incoordination, Change in Speech, Confusion, Seizures, Other - Medications/Allergies Allergies/Adverse Reactions: Allergies Allergy/AdvReac Type Severity Reaction Status Date / Time No Known Drug Allergies Allergy Verified 12/03/18 07:03 Medications: Current Medications Acetaminophen (Tylenol) 650 mg LA Q4H PRN PRN Reason: Headache/Fever/Mild Pain (1-3) Albuterol Sulfate (Proventil Hfa) 2 puff INH Q4H PRN PRN Reason: Dyspnea Bupropion HCl (Wellbutrin) 100 mg PO TID [facility] Cholestyramine Resin (Questran Light) 4 gm PO BID-WM [facility] Sodium Chloride (Normal Saline 0.9%) 1,000 mls @ 80 mls/hr IV .[id number] VICTOR M Last Admin: 12/04/18 22:15 Dose: 1,000 mls Non-Formulary Medication (Albuterol Sulfate Hfa (Or)) 2 puff FS Q6H PRN PRN Reason: Dyspnea Non-Formulary Medication (Levothyroxine Sodium [Levothyroxine Sodium]) 200 mcg PO DAILY VICTOR M Non-Formulary Medication (Propylene Glycol/Peg 400/Pf [Systane 0.3-0.4% Eye Drop ]) 1 each OP DAILY PRN PRN Reason: Dry Eyes Non-Formulary Medication (Simethicone [Gas Relief]) 180 mg PO BID PRN PRN Reason: GI Upset Ondansetron HCl (Zofran Odt) 4 mg PO Q6H PRN PRN Reason: Nausea/Vomiting Last Admin: 12/03/18 20:26 Dose: 4 mg Sodium Chloride (Flush - Normal Saline) 10 ml IVF PRN PRN PRN Reason: Saline Flush Zolpidem Tartrate (Ambien) 5 mg PO HSPRN PRN PRN Reason: Insomnia
[2018-12-05] MEDS ORDERED: Polyethylene Glycol OPTH DROP 15 ML BOT EA EYE PRN (15:37)
--- NOTE | 2018-12-05 17:33 | PRG ---
DATE OF SERVICE: 12/05/2018 SUBJECTIVE: Ms. Lopez is doing well. 97, pulse 65, and blood pressure 136/73. ABDOMEN: Nontender. She is able to walk around the room. LABORATORY DATA: White count 2.3, hemoglobin 10.1, platelet count 177. Electrolytes normal. Iron low at 20, saturation 7%, B12 of 1196, folate 15.9, thiamine pending. ASSESSMENT: 1. Vague gastritis, symptoms resolved. 2. History of multiple abdominal surgeries with hernias and an end ileostomy. She manages well with hydration and nutrition and does not have a baseline issue with either one. 3. Prior history of Stacie-en-Y gastric bypass. RECOMMENDATIONS: 1. When she goes home, she is to be on thiamine 100 mg daily, multivitamin daily, and iron daily. 2. I have recommended that she take her Questran away from other medicines that will bind it and causes not to be absorbed. 3. She will follow up with her primary physician at [place]. If she has recurrent symptoms follow up with me. If she has further symptoms or recurrent symptoms, I would be happy to see her in the office, but presently, she has no active GI symptoms and she does not need any GI followup. Job ID: [id number]
[2018-12-05] MEDS: Cholestyramine/Aspartame 4 gm Packet PO SCH (18:14)
[2018-12-05] MEDS ORDERED: Simethicone Chewable 80 MG TAB PO PRN (19:00)
[2018-12-05] MEDS: buPROPion HCl 100 MG TAB PO SCH (20:58)
[2018-12-06] MEDS ORDERED: Levothyroxine Sodium 100 MCG TAB PO SCH (06:00)
[2018-12-06] MEDS: Cholestyramine/Aspartame 4 gm Packet PO SCH (09:13)
[2018-12-06] MEDS: buPROPion HCl 100 MG TAB PO SCH (09:13)
[2018-12-06 13:47] VITALS: BP 127/60; TEMP 97.8
--- NOTE | 2018-12-06 16:51 | DIS ---
DATE OF ADMISSION: 12/03/2018 DATE OF DISCHARGE: 12/06/2018 CONDITION AT THE TIME OF DISCHARGE: Stable and improved. DISCHARGE DISPOSITION: Home. PRIMARY CARE PHYSICIAN: Theresa Beatty DO, discharge home health guardian. IN-HOUSE CONSULTATION: 1. Gastroenterology, Josué Shepherd MD. 2. General Surgery, Ariel Griffin MD. PROCEDURES DONE IN THE HOSPITAL: 1. CT scan of the abdomen and pelvis on 12/03/2018, which shows colonic diverticulosis, fibroid of the uterus, osteopenia, and a large anterior abdominal wall hernia with some surrounding mesenteric edema and bowel wall thickening suspected for infectious versus inflammatory versus ischemic enteritis. 2. Transthoracic echocardiogram which shows EF of 55% to 60% with sinus bradycardia but mild mitral regurgitation, moderate tricuspid regurgitation. DISCHARGE MEDICATIONS: As follows. Resume home medications. No changes were made. See admission history and physical dictated by Dr. Chao on 12/03/2018 for full list. New medications as follows: 1. Thiamine 100 mg daily. 2. Ferrous sulfate 300 mg p.o. b.i.d. oral solution. The patient will continue her multivitamin daily. HISTORY OF PRESENTING ILLNESS: Ms. Lopez is a 78-year-old female with known history of multiple abdominal surgeries who has an ileostomy, who presented to the emergency room with 3 to 4-day complains of abdominal pain. A CT scan was done in the emergency room and she was found to have a large abdominal hernia with possible enteritis. She was made n.p.o., was given some IV antibiotic and General Surgery was consulted. Please see admission history and physical dictated by Dr. Chao for further details. HOSPITAL COURSE: The patient was seen by Dr. Griffin, who recommended medical management and gastroenterology evaluations. GI was consulted. Dr. Shepherd saw the patient and once again agreed with conservative management. It was either thought to be a viral enteritis with possibility of ischemic enteritis. The patient actually did very well without any significant intervention. She was transitioned from liquid to full diet and was tolerating it very well without any evidence of anymore abdominal pain. She remained hemodynamically stable and was walking around in the hallways by herself. Dr. Shepherd recommended checking her B1, as well as B12 and iron levels. She was found to be iron deficient, which was replaced by IV route. She was started on oral iron supplements, as well as thiamine. As of this morning, the patient is eating a normal diet and has no more abdominal pain. She has normal output in her ileostomy without any blood. She has no nausea or vomiting. She has been cleared for discharge from GI and General Surgery perspective. She will follow up with primary care physician and GI at least once if there are any issues. PHYSICAL EXAMINATION: This morning, VITAL SIGNS: Temperature 97.8, heart rate 54, respirations 17, saturating 98% on room air, blood pressure 127/60, no acute distress. GENERAL: Awake, alert, and oriented x3. CHEST: Clear to auscultation bilaterally. Rate and rhythm regular. ABDOMEN: Soft, nontender, nondistended. Positive bowel sounds. Ileostomy has formed soft brown stool without any blood. Wound care will be provided for her anterior abdominal wall wounds that are chronic for her and for which she has home health on a regular basis. She was found to have a heart murmur, so echocardiogram was done and she was found to have moderate tricuspid and mild mitral regurgitation, which are likely the source of her heart murmur. EF is preserved. No further intervention necessary. TIME SPENT: Total time spent in the discharge of this patient, 32 minutes. Job ID: [id number]
== END 2018-12-06 13:25 | disposition home health service (06) | DRG 392 ==
LOC: ERS 04:15 → ERHOLD 06:59 → OBSVTOIN 09:50 → T4-B 17:14 → 2NO 12-04 15:49
PROVIDERS: ADMIT Internal Medicine; ATTEND Internal Medicine
DX: K57.90 Diverticulosis of intestine, part unspecified, without perforation or abscess without bleeding (principal); K46.9 Unspecified abdominal hernia without obstruction or gangrene; R10.9 Unspecified abdominal pain; R00.1 Bradycardia, unspecified; D50.9 Iron deficiency anemia, unspecified; E03.9 Hypothyroidism, unspecified; Z93.2 Ileostomy status; K29.60 Other gastritis without bleeding; D25.9 Leiomyoma of uterus, unspecified; M85.80 Other specified disorders of bone density and structure, unspecified site
CPT/HCPCS: 36415; 71046; 74177; 80048; 80053; 81003; 81015; 82607; 82746; 83540; 83550; 83735; 84100; 84425; 85007; 85025; 85027; 93005; 93010; 93306; 96361; 96365; 96366; 96367; 96375; 96376; J0744; J2270; J2405; J2916; J7050; Q0162; Q9966

== ENCOUNTER 2019-01-08 16:02 | Outpatient (CLI) | payer MEDICARE, OTHER ==
[~2019-01-08 16:02] MED LIST: Sodium Chloride 0.9% 15 ML NEB ONE
--- NOTE | 2019-01-08 16:33 | PRG ---
DATE OF SERVICE: 01/08/2019 HISTORY: Ms. Mila Lopez is a very pleasant 78-year-old, who presents to the [facility] for evaluation of multiple nonhealing surgical wounds of the abdomen in the midline subsequent to surgery for an incarcerated ventral hernia in [place], followed by second surgical procedure in [place], when the patient was found to have fecal material draining from her surgical wound. The patient stated that she received wound care in [place] for approximately 1 year. The patient subsequently returned home to [place] and was referred to the Wound Center by Dr. Beatty on 08/19/2018. After being seen in the wound center, dressing changes of Aquacel Ag, 4x4s, and Mepilex Border were initiated. These dressing changes were performed 3 times per week after cleansing and irrigation with the assistance of Home Health. Since the patient's last visit, she has been receiving dressing changes of Aquacel Ag and Mepilex border also 3 times per week after cleansing and irrigation with the assistance of Home Health. PHYSICAL EXAMINATION: VITAL SIGNS: Stable. Afebrile. ABDOMEN: Soft. Two nonhealing surgical wounds of the abdomen in the midline remain. Mesh is visible within the wound margins of the superior wound. Nonviable tissue present within the wound margins was debrided with an excisional full-thickness debridement with the use of scissors. No purulent drainage is associated with the wound. No erythema of the skin surrounding the wound is present. No maceration of the skin of the periwound is noted. ASSESSMENT AND PLAN: 1. Multiple nonhealing surgical wounds of the abdomen in the midline as described above. As stated above, only two nonhealing surgical wounds of the abdomen in the midline remain. Dressing changes of Aquacel Ag and Mepilex border will be continued 3 times per week after cleansing and irrigation with the assistance of Home Health. The treatment plan was previously discussed with the patient's surgeon Dr. Eliz Trujillo, who is located in [place], [place]. The patient as per her request will return to the Wound Center on an as needed basis. 2. Hypothyroidism. 3. Hypertension. Job ID: [id number]
== END 2019-01-08 16:03 | disposition home or self-care (01) ==
LOC: WCC 16:02
PROVIDERS: ATTEND Family Medicine
DX: T81.89XD Other complications of procedures, not elsewhere classified, subsequent encounter (principal); E03.9 Hypothyroidism, unspecified; I10 Essential (primary) hypertension
CPT/HCPCS: 11042; A4218

== ENCOUNTER 2019-02-14 11:38 | Inpatient (IN) | payer MEDICARE, OTHER ==
[2019-02-14] MEDS ORDERED: Ondansetron PF 4 MG/2 ML Vial ONE (12:46)
[2019-02-14] MEDS ORDERED: Morphine 4 MG/ML VIAL ONE (12:46)
[2019-02-14 12:54] LABS: Albumin 3.9 g/dL (3.4-4.8)
[2019-02-14 12:55] LABS: Chloride 104 mmol/L (98-107); Potassium 4.8 mmol/L (3.5-5.1); Sodium 137 mmol/L (136-145)
[2019-02-14 12:56] LABS: Calcium 9.6 mg/dL (7.8-10.44); Globulin 3.3 g/dL (2.4-3.5); Glucose 96 mg/dL (83-110); Protein, Total 7.2 g/dL (6.0-8.3)
[2019-02-14 12:58] LABS: Anion Gap 14 mmol/L (10-20); Bilirubin, Total 0.5 mg/dL (0.2-1.2); Carbon Dioxide 24 mmol/L (23-31)
[2019-02-14 13:00] LABS: BUN (Urea Nitrogen) 14 mg/dL (9.8-20.1); Calc. Creatinine Clearance 0 mL/min (70-130); Estimated GFR-MDRD 74
[2019-02-14 13:01] LABS: AST (SGOT) 40 U/L (5-34)
[2019-02-14 13:02] LABS: ALT (SGPT) 28 U/L (8-55); Lipase 74 U/L (8-78)
[2019-02-14 13:05] LABS: #Monocytes 0.4 thou/uL (0.11-0.59); #Neutrophils 3.2 thou/uL (1.40-6.50); %Basophils 0.6 % (0.0-1.0); %Eosinophils 0.8 % (0.0-10.0); %Lymphocytes 20.8 % (21.0-51.0); %Monocytes 9.3 % (0.0-10.0); %Neutrophils 68.6 % (42.0-75.0); Hemoglobin 12.6 g/dL (12.0-16.0); Mean Corpuscular HGB CONC 31.8 g/dL (32.0-36.0); Mean Corpuscular Hemoglobin 28.8 pg (27.0-31.0); Mean Corpuscular Volume 90.6 fL (78.0-98.0); Mean Platelet Volume 7.7 fL (7.4-10.4); Platelet Count 225 thou/uL (130-400); RBC Distribution Width 14.3 % (11.5-14.5); Red Blood Cell (RBC) Count 4.36 mill/uL (4.20-5.40); White Blood Cell (WBC) Count 4.7 thou/uL (4.8-10.8)
[2019-02-14 13:11] LABS: Bilirubin Negative (Negative); Blood, Urine Negative (Negative); Clarity CLEAR (Clear); Glucose, Urine (Dipstick) Negative (Negative); Leukocyte Small (Negative); Nitrite Positive (Negative); Protein, Urine (Dipstick) Negative (Neg-Trace); Specific Gravity, Urine 1.019 (1.002-1.036); Urobilinogen 0.2 mg/dL (0.2-1.0)
[2019-02-14 13:17] LABS: Alkaline Phosphatase 112 U/L (40-150)
[2019-02-14 13:24] LABS: Bacteria/HPF 3+ HPF (None Seen); Hyaline Casts/LPF 0-3 HYALINE CAST LPF (0-3 Hyaline); RBC/HPF 0-3 HPF (0-3); Squamous Epithelial None Seen HPF (0-3); WBC/HPF 0-3 HPF (0-3)
--- NOTE | 2019-02-14 15:41 | CT ---
CT ABDOMEN AND PELVIS WITH CONTRAST: HISTORY: Ostomy blockage last night. Dull, constant abdominal pain with intermittent waves of more severe supriya n. COMPARISON: 12/03/2018 TECHNIQUE: Multiple contiguous axial images were obtained in a CT of the abdomen and pelvis with contrast. Cont rast was administered p.o. Coronal reformats were performed. FINDINGS: The patient has a small bowel ostomy in the left lower quadrant of the abdomen. The distal small bow el loops are decompressed just proximal to the ostomy. There is a small bowel feces sign with dilate d loops of small bowel loops in the lower abdomen, measuring up to 4.8 cm in size. These small bowel loops transition to normal caliber small bowel loops below the midline of the mid abdomen. The right colon appears to have been removed. There is an anastomotic staple line near the splenic f lexure, with a long segment of left colon draining down to the rectum. This segment of colon also co ntains a diverticula in the sigmoid colon and is predominantly decompressed. The patient is status post cholecystectomy. The liver, kidneys, adrenal glands, spleen, and pancreas are unremarkable. No free air, free fluid, or stranding changes are seen in the abdomen or pelvis. There are lobulations extending off the uterus, which likely represent uterine fibroids. No abdomina l or pelvic lymphadenopathy is seen. Degenerative changes are seen in the spine. The visualized inf erior thorax is unremarkable. IMPRESSION: 1. There are dilated loops of small bowel in the mid small bowel with decompressed distal small milena l loops. This patient may have a partial or complete small bowel obstruction. 2. Diverticulosis in the left colon, which has been bypassed. 3. Fibroid uterus. POS: [facility]
[2019-02-14] MEDS ORDERED: Lidocaine Viscous Sol 2% 15 ml UD Cup ONE (15:55)
[2019-02-14] MEDS ORDERED: Midazolam HCl 2 mg/2 ml Vial ONE (15:55)
[2019-02-14] MEDS ORDERED: Benzocaine 20% Spray 60 ML CAN ONE (15:56)
--- NOTE | 2019-02-14 17:06 | RAD ---
SINGLE VIEW OF THE ABDOMEN: 02/14/19 COMPARISON: None. HISTORY: Decreased ostomy output since last night. NG tube placement. FINDINGS: Single view of the abdomen shows a nonspecific, nonobstructed bowel gas pattern. Cholecystectomy clip s are seen. An NG tube is seen in the left upper quadrant of the abdomen, likely within the stomach. IMPRESSION: NG tube located in the stomach. POS: [facility]
[2019-02-14] MEDS ORDERED: Ondansetron PF 4 MG/2 ML Vial IVP PRN ×2 (18:15→18:20)
[2019-02-14] MEDS ORDERED: Morphine 4 MG/ML VIAL SLOW IVP PRN ×2 (18:15→18:16)
[2019-02-14] MEDS ORDERED: Lactated Ringer's 1,000 ML IV SCH (18:15)
[2019-02-14] MEDS ORDERED: Ondansetron ODT 4 MG TAB SL PRN (18:15)
[2019-02-14] MEDS ORDERED: hydrALAZINE 20 MG/ML VIAL SLOW IVP PRN (18:16)
[2019-02-14] MEDS ORDERED: Lorazepam 2 MG/ML VIAL SLOW IVP PRN (18:16)
[2019-02-14] MEDS ORDERED: Ondansetron ODT 8 MG TAB SL PRN (18:20)
[2019-02-14] MEDS: Lactated Ringer's 1,000 ML IV SCH (18:32)
--- NOTE | 2019-02-14 18:49 | RAD ---
Radiograph abdomen one view: DATE: 02/14/2019 Time: 6:27 PM COMPARISON: 02/14/2019 4:50 PM HISTORY: NG tube placement. FINDINGS: The esophagogastric tube, which was previously curled in the left upper quadrant, with distal tip dir ected superomedially, has been retracted by approximately 8 cm, and the distal tip is now directed laterally in the left upper quadrant. It appears to be within and oral contrast filled dilated viscus surrounded by suture line. The Side-port is approximately 5 cm inferior and to the left of the expected region of the esophagogastric junction. There continues to be enteric contrast material in m ultiple dilated bowel loops throughout the central abdomen. Cholecystectomy clips in right upper quadrant. IMPRESSION: Interval retraction of enteric tube within an anastomotic distended bowel loop in the left upper quad rant.
[2019-02-14] MEDS: Enoxaparin Sodium 40 MG/0.4 ML SYRINGE SC SCH (20:03)
[2019-02-14 23:22] VITALS: BMI 37.0
--- NOTE | 2019-02-15 02:01 | HP ---
HISTORY OF PRESENT ILLNESS: Mila Lopez is a 78-year-old female, presenting to the emergency room with bowel obstruction. She has suffered nausea without vomiting, abdominal distention, crampy pain over the last 2 days. She presents, had a CAT scan revealing changes consistent with bowel obstruction with relative decompression of the distal ileum and proximal dilatation. There are no signs of internal swirling or internal herniation. She has an ileostomy. She has a decompressed descending colon. She has a large abdominal wall hernia without incarceration. The patient was hospitalized in November for similar episode and seen by Dr. Griffin, treated nonoperatively. At that time, she was noted to have some small bowel fecalization signs, but there was no small bowel dilatation. She was thought to have a gastroenteritis. The patient reports being hospitalized in July 2018 with a similar [place], resolved nonsurgically. PAST SURGICAL HISTORY: She has a complicated past surgical history and has a Stacie-en-Y gastric bypass present. ALLERGIES: NONE. SOCIAL HISTORY: Tobacco, none. Alcohol, none. MEDICATIONS AT HOME: 1. Clonazepam 0.5 mg daily. 2. Bupropion 100 mg t.i.d. 3. Ventolin inhaler p.r.n. 4. CoQ10. 5. Thiamine. 6. Simethicone for gas relief. 7. MiraLAX daily. 8. [place]-3 fatty acids. 9. She takes loperamide as needed for decreased ileostomy output. 10. Levothyroxine 200 mcg daily. 11. Ferrous sulfate b.i.d. 12. Vitamin B12. 13. Cholestyramine. 14. Cetirizine. 15. Calcium 600. 16. Vitamin D3. 17. Biotin. 18. Albuterol hand-held nebulizer. PAST SURGICAL HISTORY: The patient 25 years ago underwent an open Stacie-en-Y gastric bypass in [place]. Postoperatively, she had some sort of postoperative complication years later hernia requiring small-bowel resection. She then developed incisional hernias, repaired without mesh. She underwent abdominoplasty using mesh and she developed mesh erosion into the bowel. She developed fistulas and they bought up an ostomy of some sort. In 2016, she had an incarcerated ventral hernia that occurred in [place], repaired in August. She developed fistulas of small bowel that was resected and she was discharged. She was on vacation at [facility] when she developed stool fistula from her abdominal wall. She was taken back to the operating room, had a necrotic anterior abdominal wall that was resected, they did do a right hemicolectomy to restore an ostomy and they brought up an ileostomy on the left side of her abdomen. She has had problems with small sinus tracts, thought to be communicating to her mesh and has intermittently exposed mesh that is debrided and chronic drainage. She has 2 areas of her abdominal wall, right upper quadrant and right of midline lower abdomen where she replaces a Band-Aid every 2 to 3 days with . 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 PHYSICAL EXAMINATION: VITAL SIGNS: 86 kg, 67 heart rate, 18 respiratory rate, 98 degrees. HEAD, EARS, EYES, NOSE AND THROAT: Unremarkable. LUNGS: Clear to auscultation. CARDIAC: Regular rate and rhythm without murmur or gallop. ABDOMEN: Obese, soft. Ileostomy in place. Band-Aids in areas described with minimal soilage, last changed early this morning. Ileostomy present with some ileostomy output. NG in place. EXTREMITIES: Unremarkable. LABORATORY DATA: White count 4, hemoglobin 12. Comprehensive metabolic profile normal. ASSESSMENT AND PLAN: 1. Ileostomy status with bowel obstruction. We would treat her with NG tube. I have reviewed her CAT scan and she has proximal dilatation. We will check an x-ray for tube placement. We will try to treat her nonoperatively and avoid an operation as she definitely has a hostile abdomen and is at risk for multiple complications for any operation performed. 2. Obesity. 3. Gastric bypass status. 4. Depression. 5. Anxiety. Job ID: [id number]
[2019-02-15] MEDS: Lactated Ringer's 1,000 ML IV SCH ×2 (02:20→10:19)
[2019-02-15 05:56] LABS: #Lymphocytes 0.8 thou/uL (1.20-3.40); #Monocytes 0.4 thou/uL (0.11-0.59); #Neutrophils 2.5 thou/uL (1.40-6.50); %Eosinophils 1.2 % (0.0-10.0); %Lymphocytes 20.2 % (21.0-51.0); %Neutrophils 68.5 % (42.0-75.0); Hemoglobin 11.5 g/dL (12.0-16.0); Mean Corpuscular HGB CONC 32.4 g/dL (32.0-36.0); Mean Corpuscular Hemoglobin 29.4 pg (27.0-31.0); Mean Corpuscular Volume 90.7 fL (78.0-98.0); Mean Platelet Volume 7.2 fL (7.4-10.4); Platelet Count 188 thou/uL (130-400); RBC Distribution Width 14.1 % (11.5-14.5); Red Blood Cell (RBC) Count 3.93 mill/uL (4.20-5.40); White Blood Cell (WBC) Count 3.7 thou/uL (4.8-10.8)
[2019-02-15 06:22] LABS: Anion Gap 12 mmol/L (10-20); BUN (Urea Nitrogen) 15 mg/dL (9.8-20.1); Calc. Creatinine Clearance 100 mL/min (70-130); Calcium 8.6 mg/dL (7.8-10.44); Carbon Dioxide 27 mmol/L (23-31); Chloride 104 mmol/L (98-107); Estimated GFR-MDRD Greater than 90; Glucose 86 mg/dL (83-110); Potassium 3.6 mmol/L (3.5-5.1); Sodium 139 mmol/L (136-145)
[2019-02-15] MEDS: Pantoprazole 40 MG VIAL IVP SCH (08:36)
[2019-02-15] MEDS ORDERED: Prevnar 13-Val Conj/PF 0.5 ML SYRINGE IM ONE (09:00)
--- NOTE | 2019-02-15 12:02 | RAD ---
EXAM: Chest one view: Abdomen 2 views: HISTORY: Follow-up small bowel obstruction COMPARISON: Abdomen CT 02/14/2019 FINDINGS: NG tube in place. No significant acute process in the chest. Postoperative changes in the abdomen. Left-sided ostomy site. No nelia abnormally dilated small bowel loops are demonstrated. No free intraperitoneal air. No overt calculi. IMPRESSION: No acute process in the chest and abdomen. Patient is scheduled for a small bowel follow-through to follow.
--- NOTE | 2019-02-15 13:04 | RAD ---
XR Small Bowel STANDARD History: [Small bowel obstruction] Comparison: CT prior day Findings: Atrophy of contrast into the patient. The enteric tube. There is rapid transit contrast or small bowel. Contrast is seen within the bag within 1 hour. Impression: No evidence of high-grade small bowel obstruction.
[2019-02-15] MEDS ORDERED: Ibuprofen 200 MG TAB PO PRN (14:03)
[2019-02-15] MEDS ORDERED: Polyethylene Glycol OPTH DROP 15 ML BOT EA EYE PRN (14:24)
--- NOTE | 2019-02-15 14:37 | PRG ---
DATE OF SERVICE: 02/15/2019 SUBJECTIVE: Ms. Lopez is doing well today. OBJECTIVE: VITAL SIGNS: Temperature 98.1 degrees, pulse, 58, blood pressure 105/66. NG tube output overnight was 150 mL. LUNGS: Clear to auscultation. CARDIAC: Regular rate and rhythm without murmur or gallop. ABDOMEN: Soft. Bowel sounds present. She has passed some flatus in her ileostomy bag and had some stool out. She then went for a small bowel follow-through through her NG tube. She had copious output through her ileostomy. Contrast was in the ileostomy bag within an hour. There was no evidence of obstruction. LABORATORY DATA: This morning, her white count is 3.7, hemoglobin 11.5. Basic metabolic profile normal. ASSESSMENT AND PLAN: Resolved partial small-bowel obstruction in a patient with ileostomy and large ventral hernia with loss of domain. We would plan remove her NG tube and advance her diet and plan discharge to home more likely in the morning. Job ID: [id number]
[2019-02-15] MEDS ORDERED: PROVENTIL INHALER 6.7 G (200 INHALATIONS) INH PRN (14:45)
[2019-02-15] MEDS: buPROPion HCl 100 MG TAB PO SCH ×2 (15:01→20:35)
[2019-02-15] MEDS ORDERED: Ibuprofen 800 MG TAB PO PRN (15:04)
[2019-02-15] MEDS ORDERED: Simethicone Chewable 80 MG TAB PO PRN (19:00)
[2019-02-15] MEDS: FlunisoLIDE 0.025% Nasal Spray 25 ml Bottle EA NARE SCH (20:38)
[2019-02-15] MEDS: Enoxaparin Sodium 40 MG/0.4 ML SYRINGE SC SCH (20:38)
[2019-02-15] MEDS: Cholestyramine/Aspartame 4 gm Packet PO SCH (21:43)
[2019-02-16] MEDS ORDERED: Levothyroxine Sodium 100 MCG TAB PO SCH (06:00)
[2019-02-16] MEDS: Pantoprazole 40 MG VIAL IVP SCH (08:09)
[2019-02-16] MEDS: buPROPion HCl 100 MG TAB PO SCH (08:10)
[2019-02-16] MEDS: Cholestyramine/Aspartame 4 gm Packet PO SCH (08:11)
[2019-02-16] MEDS: FlunisoLIDE 0.025% Nasal Spray 25 ml Bottle EA NARE SCH (08:12)
[2019-02-16] MEDS ORDERED: Loratadine 10 MG TAB PO SCH (09:00)
[2019-02-16] MEDS ORDERED: Vit A,C & E/Lutein/Minerals Tablet PO SCH (09:00)
[2019-02-16] MEDS ORDERED: Ascorbic Acid 500 mg Chewable Tablet PO SCH (09:00)
[2019-02-16] MEDS ORDERED: Calcium Carbonate + Vit D 1 TAB PO SCH (09:00)
[2019-02-16] MEDS ORDERED: Multivits W-Minerals Liquid 15mL UDCUP PO SCH (09:00)
[2019-02-16] MEDS ORDERED: Ubidecarenone 50 MG CAP PO SCH (09:00)
[2019-02-16] MEDS ORDERED: Fish Oil 1,000 MG CAP PO SCH (09:00)
[2019-02-16] MEDS ORDERED: Thiamine 100 MG TAB PO SCH (09:00)
[2019-02-16] MEDS ORDERED: clonazePAM 0.5 MG TAB PO SCH (09:00)
[2019-02-16 11:52] VITALS: BP 105/66; TEMP 97.3
--- NOTE | 2019-02-16 13:25 | PRG ---
DATE OF SERVICE: 02/16/2019 SUBJECTIVE: Mila Lopez is doing well today. She is tolerating her diet. IV has been saline locked. She has output of her ileostomy. OBJECTIVE: LUNGS: Clear to auscultation. CARDIAC: Regular rate and rhythm without murmur or gallop. ABDOMEN: Soft, obese, protuberant, baseline, nontympanitic. LABORATORY DATA: The patient's urinalysis reveals 10,000 to 25,000 E coli. It is sensitive to nitrofurantoin. This was started for a 4-day course. ASSESSMENT AND PLAN: The patient is tolerating her diet. Plan is to discharge home with followup as needed. She will resume her home medications. Job ID: [id number]
[2019-02-16] MEDS ORDERED: Nitrofurantoin ORAL SUSP. 25 MG/5 ML UDCUP PO SCH (21:00)
--- NOTE | 2019-02-17 00:19 | DIS ---
DATE OF ADMISSION: 02/14/2019 DATE OF DISCHARGE: 02/16/2019 DISCHARGE DIAGNOSES: 1. Partial bowel obstruction, resolved nonoperatively. 2. Ileostomy status. 3. Bariatric surgery status. 4. Obesity, morbid. 5. Hypothyroidism, treated medically. 6. Asthma. 7. Anxiety. PROCEDURES DURING HOSPITALIZATION: CT scan of the abdomen and pelvis. Small-bowel follow-through. No evidence of obstruction. Discharged home with nitrofurantoin for 4 days. E coli 10,000 to 25,000 count. HISTORY: A 78-year-old female, seen in the emergency room with history and exam suggestive of bowel obstruction. She has an ileostomy from past surgery. She has incisional hernias. She has with chronic draining sinuses. She has extensive surgical history where she had a Stacie-en-Y gastric bypass, subsequent internal hernia resection and now has a permanent ileostomy. The patient was admitted, treated with an NG tube, had very little output. Small-bowel follow-through was normal the next day, . Her diet was advanced. She complained of urinary symptoms, although her E coli counts were 10,000 to 25,000. She was treated with nitrofurantoin and she will resume her home medications, see list. She will follow up as needed. Job ID: [id number]
[2019-02-17] MEDS ORDERED: Cyanocobalamin (Vitamin B-12) 1,000 MCG TAB PO SCH (09:00)
== END 2019-02-16 13:40 | disposition home or self-care (01) | DRG 390 ==
LOC: ERS 11:38 → SURG B 15:47
PROVIDERS: ADMIT Specialist; ATTEND Specialist
DX: K56.600 Partial intestinal obstruction, unspecified as to cause (principal); F32.9 Major depressive disorder, single episode, unspecified; F41.9 Anxiety disorder, unspecified; E03.9 Hypothyroidism, unspecified; J45.909 Unspecified asthma, uncomplicated; E78.5 Hyperlipidemia, unspecified; I10 Essential (primary) hypertension; K43.9 Ventral hernia without obstruction or gangrene; E66.01 Morbid (severe) obesity due to excess calories; Z98.84 Bariatric surgery status; Z93.2 Ileostomy status; Z68.37 Body mass index [BMI] 37.0-37.9, adult
CPT/HCPCS: 36415; 74018; 74022; 74177; 74250; 80048; 80053; 81003; 81015; 83690; 85025; 87077; 87086; 87186; 90471; 90670; C9113; G0009; J1650; J2250; J2270; J2405; J3411; J7050

== ENCOUNTER 2019-03-17 05:01 | Inpatient (IN) | payer MEDICARE, OTHER ==
[2019-03-17 06:03] LABS: Bacteria/HPF None Seen HPF (None Seen); Bilirubin Negative (Negative); Blood, Urine Negative (Negative); Clarity Clear (Clear); Glucose, Urine (Dipstick) Normal (Negative); Leukocyte 250 Leu/uL (Negative); Nitrite Negative (Negative); Protein, Urine (Dipstick) 20 mg/dL (Neg-Trace); RBC/HPF None Seen HPF (0-3); Squamous Epithelial 0-3 HPF (0-3); Urobilinogen Normal mg/dL (Less than 2)
[2019-03-17 06:08] LABS: #Monocytes 0.6 thou/uL (0.11-0.59); #Neutrophils 3.8 thou/uL (1.40-6.50); %Basophils 0.3 % (0.0-1.0); %Eosinophils 0.5 % (0.0-10.0); %Lymphocytes 18.5 % (21.0-51.0); %Neutrophils 69.7 % (42.0-75.0); Hemoglobin 12.4 g/dL (12.0-16.0); Mean Corpuscular HGB CONC 31.9 g/dL (32.0-36.0); Mean Corpuscular Hemoglobin 29.2 pg (27.0-31.0); Mean Corpuscular Volume 91.5 fL (78.0-98.0); Platelet Count 219 thou/uL (130-400); RBC Distribution Width 14.3 % (11.5-14.5); Red Blood Cell (RBC) Count 4.23 mill/uL (4.20-5.40); White Blood Cell (WBC) Count 5.4 thou/uL (4.8-10.8)
[2019-03-17 06:29] LABS: ALT (SGPT) 48 U/L (8-55); AST (SGOT) 38 U/L (5-34); Albumin 3.9 g/dL (3.4-4.8); Alkaline Phosphatase 138 U/L (40-150); Anion Gap 14 mmol/L (10-20); BUN (Urea Nitrogen) 18 mg/dL (9.8-20.1); Bilirubin, Total 0.6 mg/dL (0.2-1.2); Calc. Creatinine Clearance 0 mL/min (70-130); Calcium 9.8 mg/dL (7.8-10.44); Carbon Dioxide 26 mmol/L (23-31); Chloride 103 mmol/L (98-107); Estimated GFR-MDRD 71; Globulin 3.8 g/dL (2.4-3.5); Glucose 113 mg/dL (83-110); Lipase 59 U/L (8-78); Potassium 4.3 mmol/L (3.5-5.1); Protein, Total 7.7 g/dL (6.0-8.3); Sodium 139 mmol/L (136-145)
[2019-03-17] MEDS ORDERED: Morphine 4 MG/ML VIAL ONE (06:47)
[2019-03-17] MEDS ORDERED: Ondansetron PF 4 MG/2 ML Vial ONE (06:48)
--- NOTE | 2019-03-17 09:18 | CT ---
CT ABDOMEN AND PELVIS WITH IV CONTRAST: Multiple axial tomograms obtained through the abdomen and pelvis with IV enhancement. Oral contrast was administered. INDICATION: Abdominal pain. COMPARISON: Comparison is made to CT abdomen and pelvis 02/14/2019. FINDINGS: Liver, spleen, pancreas, adrenal glands unremarkable. Kidneys unremarkable with no hydronephrosis. The patient appears to be post gastric bypass procedure with radiopaque suture at the stomach and at the gastrojejunal anastomosis. There is a large abdominal wall hernia involving the right abdomen. Multiple loops of small bowel he rniate through this defect and reside within the subcutaneous tissues of the right abdomen. There are dilated loops of small bowel within this hernia. There is a single loop of small bowel alia suring 7-8 cm diameter in the anterior right abdomen at this defect. There is a small bowel loop wit hin this abdominal wall defect which exhibits luminal narrowing and mural thickening with surrounding haziness which may represent ischemic change or strangulation. Findings are concerning for high-gra de small bowel obstruction secondary to a large abdominal wall hernia. Images through the pelvis show diverticulosis of the sigmoid colon. The patient is post partial alli ctomy. The left colon is in place. The urinary bladder is unremarkable. The uterus has an abnormal lobulated appearance with extension from the left uterine fundus probably representing an exophytic fibroid. This is stable. IMPRESION: Large abdominal wall defect involving the right abdomen. Numerous small bowel loops herniate into th e subcutaneous tissues of the right abdomen. There are dilated loops of small bowel with one loop sh owing severe dilatation measuring 7-8 cm. There is a loop within this defect showing luminal narrowi ng, mural thickening, and surrounding haziness suggesting possible ischemia or strangulation. Recomm end surgical consultation. POS: [facility]
[2019-03-17] MEDS ORDERED: Ondansetron ODT 4 MG TAB PO PRN (09:32)
[2019-03-17] MEDS ORDERED: Morphine 4 MG/ML VIAL SLOW IVP PRN (09:32)
[2019-03-17] MEDS ORDERED: hydrALAZINE 20 MG/ML VIAL SLOW IVP PRN (09:32)
[2019-03-17] MEDS ORDERED: Ondansetron PF 4 MG/2 ML Vial IVP PRN (09:32)
[2019-03-17] MEDS ORDERED: Morphine 2 MG/ML SYRINGE SLOW IVP PRN (10:00)
[2019-03-17] MEDS: Lactated Ringer's 1,000 ML IV SCH ×2 (11:17→17:20)
--- NOTE | 2019-03-17 11:23 | HP ---
HISTORY OF PRESENT ILLNESS: Mila Lopez is a 78-year-old female with a complicated past history, most recently moved here from [place]. Most of her surgical care has been previously lived in [place]. She does have operative reports at her home that she will bring. The patient was hospitalized in 2017, again in November and then, again in February for a bowel obstruction resolved nonoperatively. I saw her on last hospitalization. She reports on this occasion that she has had nausea and vomiting, 6 episodes last night, 1 this morning. Has not had vomiting this morning. The patient had a dose of morphine about 6:30 to 7 this morning and has not had any pain since. She had a CAT scan demonstrating her previously acknowledged large incisional hernia. This measures 14 to 17 cm across. She has been told in the past that she will have to live with an incisional hernia the rest of her life. The patient today is not having any pain. She has had some ileostomy output. In fact, they have emptied her ileostomy bag since has been here. She is not nauseated now. CAT scan reveals changes suggesting a possible bowel obstruction. The patient will be admitted without any NG tube at this time. If she develops vomiting, NG tube can be placed. She is status post gastric bypass. We will hopefully be able to treat this nonoperatively. She has a permanent ileostomy that she was told that should not be reversed because no one would not want to operate on her again. ALLERGIES: NONE. HABITS: Tobacco, none. Alcohol, none. MEDICATIONS: 1. Clonazepam 0.5 mg a day. 2. Bupropion 100 mg t.i.d. 3. Ventolin inhaler p.r.n. 4. CoQ10. 5. Thiamine. 6. Simethicone for gas release. 7. MiraLAX daily. 8. [place]-3 fatty acids. 9. Loperamide as needed for increased ileostomy output. 10. Levothyroxine 200 mcg a day. 11. Ferrous sulfate b.i.d. 12. Vitamin B12 daily. 13. Cholestyramine daily. 14. Cetrizine daily. 15. Calcium 600. 16. Vitamin D3. 17. Biotin. 18. Albuterol inhaler. PAST SURGICAL HISTORY: A 25 years ago, she underwent a Stacie-en-Y gastric bypass in [place]. Postoperatively, she had some sort of postoperative complication with an internal hernia requiring small bowel resection. She developed incisional hernias, repaired without mesh. She underwent abdominoplasty using mesh. She developed mesh erosion into the bowel. She developed fistulas that brought up an ileostomy in 2016. She had an incarcerated ventral hernia that occurred in [place], repaired in August. She developed fistula of small bowel that was resected and she was discharged. She was on vacation to [facility] when she developed stool fistula from her abdominal wall, was taken back to the operating room, had a necrotic anterior abdominal wall that was resected doing a right hemicolectomy, restore an ostomy and they brought up an ileostomy on the left side of the abdomen. She has had problems with sinus tracts, thought to be communicating with her mesh, and had intermittently exposed mesh, debrided at the bedside. She is currently undergoing hyperbaric oxygen treatment at [facility] for this chronic erosions. PHYSICAL EXAMINATION: GENERAL: The patient is in no distress. She is in no pain. VITAL SIGNS: Heart rate 76, respiratory rate 18. LUNGS: Clear to auscultation. CARDIAC: Regular rate rhythm without murmur or gallop. ABDOMEN: Soft, distended. Large incisional hernia of chronic nature. Ileostomy healthy with scant amount of stool in the ostomy bag. EXTREMITIES: Unremarkable. ABDOMEN: Soft and nontender. LABORATORY DATA: Basic metabolic profile is normal. Liver function tests are normal. White count 5 and hemoglobin 12.4. ASSESSMENT/PLAN: 1. History consistent with possible early bowel obstruction. We will admit, n.p.o., obtain a small bowel follow through dannielle, keep her hydrated. We will try to avoid operations in this hostile abdomen. 2. Chronic incisional hernia with large defect and likely could be repaired. 3. Ileostomy status. 4. History of Stacie-en-Y gastric bypass with multiple complications and resections. 5. Chronic mesh sanket into the skin, undergoing hyperbaric oxygen treatment. Job ID: [id number]
[2019-03-17] MEDS ORDERED: Iopamidol 370 76% 50 ML VIAL FS ONE (12:07)
[2019-03-17] MEDS ORDERED: ISOVUE-370 76%-LOCM 1 ML ONE (12:07)
[2019-03-17] MEDS ORDERED: Enoxaparin Sodium 40 MG/0.4 ML SYRINGE SC SCH (21:00)
[2019-03-18] MEDS: Lactated Ringer's 1,000 ML IV SCH ×3 (00:50→09:52)
[2019-03-18 06:07] LABS: #Lymphocytes 0.8 thou/uL (1.20-3.40); #Monocytes 0.4 thou/uL (0.11-0.59); #Neutrophils 1.4 thou/uL (1.40-6.50); %Basophils 0.1 % (0.0-1.0); %Eosinophils 1.9 % (0.0-10.0); %Lymphocytes 30.1 % (21.0-51.0); %Monocytes 13.9 % (0.0-10.0); %Neutrophils 53.9 % (42.0-75.0); Mean Corpuscular HGB CONC 31.2 g/dL (32.0-36.0); Mean Corpuscular Hemoglobin 28.9 pg (27.0-31.0); Mean Corpuscular Volume 92.7 fL (78.0-98.0); Mean Platelet Volume 6.9 fL (7.4-10.4); Platelet Count 173 thou/uL (130-400); Red Blood Cell (RBC) Count 3.45 mill/uL (4.20-5.40); White Blood Cell (WBC) Count 2.6 thou/uL (4.8-10.8)
[2019-03-18 06:27] LABS: Anion Gap 11 mmol/L (10-20); BUN (Urea Nitrogen) 12 mg/dL (9.8-20.1); Calc. Creatinine Clearance 0 mL/min (70-130); Calcium 8.7 mg/dL (7.8-10.44); Carbon Dioxide 28 mmol/L (23-31); Chloride 105 mmol/L (98-107); Estimated GFR-MDRD 90; Glucose 83 mg/dL (83-110); Potassium 3.7 mmol/L (3.5-5.1); Sodium 140 mmol/L (136-145)
[2019-03-18] MEDS ORDERED: Pantoprazole 40 MG VIAL IVP SCH (09:00)
--- NOTE | 2019-03-18 09:24 | RAD ---
ACUTE ABDOMINAL SERIES: Date: 03/18/19 PROVIDED CLINICAL HISTORY: Small bowel obstruction. FINDINGS: Comparison is made with the CT examination dated 03/17/19. The cardiac and mediastinal silhouette is within normal limits. Lungs appear clear. No pleural fluid or pneumothorax apparent. Supine and upright abdominal radiographs demonstrate a nonspecific bowel ga s pattern. Paucity of abdominal bowel gas. No evidence for pneumoperitoneum. Surgical clips are seen in the right upper quadrant. IMPRESSION: Nonspecific bowel gas pattern. POS: OFF
--- NOTE | 2019-03-18 09:42 | RAD ---
Exam: Gastrografin small bowel HISTORY: Evaluate for bowel obstruction Comparison 02/15/2019 FINDINGS: There is rapid contrast opacification throughout the majority of the colon. There is eviden ce of contrast in the colostomy bag on 20 minute image IMPRESSION: no evidence of high-grade obstruction
[2019-03-18] MEDS ORDERED: MD-Gastroview 120 ML BOT ONE (10:44)
[2019-03-18] MEDS ORDERED: PROVENTIL INHALER 6.7 G (200 INHALATIONS) INH PRN (12:40)
[2019-03-18] MEDS ORDERED: Simethicone Chewable 80 MG TAB PO PRN (12:40)
[2019-03-18] MEDS ORDERED: Ibuprofen 200 MG TAB PO PRN (12:40)
[2019-03-18 13:52] VITALS: BMI 37.0
[2019-03-18] MEDS ORDERED: buPROPion HCl 100 MG TAB PO SCH (15:00)
[2019-03-18 15:52] VITALS: BP 134/82; TEMP 97.9
[2019-03-18] MEDS ORDERED: Cholestyramine/Aspartame 4 gm Packet PO SCH (22:00)
--- NOTE | 2019-03-19 03:49 | DIS ---
DATE OF ADMISSION: 03/17/2019 DATE OF DISCHARGE: 03/18/2019 DISCHARGE DIAGNOSES: 1. Partial bowel obstruction, resolved nonoperatively. 2. Ileostomy status. 3. Large incisional hernia. 4. Bariatric surgery status. PROCEDURE THIS HOSPITALIZATION: CT scan of the abdomen and pelvis in the emergency room revealing findings suggestive of bowel obstruction and small bowel obstruction. Small bowel followthrough, normal transit time less than 30 minutes. Discharged home without pain, resuming home medications. See admission history and physical. Follow up in my office as needed. HISTORY: A 78-year-old female, who has moved here from [place]. She has had multiple operations, has a large incisional hernia that cannot be repaired locally. She had ileostomy performed at [place] after multiple operations for infections of the abdominal wall requiring resection, multiple operations for bowel obstructions and fistulas and mesh. The patient was hospitalized recently for similar episode, resolving nonoperatively this hospitalization. NG tube was not placed. She had suffered 2 days of nausea, vomiting, abdominal distention. CAT scan suggested bowel obstruction. She was kept n.p.o. without NG tube, did not have any more nausea, vomiting. Continued to have a small amount ileostomy output and after small bowel followthrough, she had copious ileostomy output and she is discharged home, tolerating a diet. Follow up in my office as needed. Job ID: [id number]
[2019-03-19] MEDS ORDERED: Levothyroxine Sodium 100 MCG TAB PO SCH (06:00)
[2019-03-19] MEDS ORDERED: Cyanocobalamin (Vitamin B-12) 1,000 MCG TAB PO SCH (09:00)
[2019-03-19] MEDS ORDERED: Thiamine 100 MG TAB PO SCH (09:00)
[2019-03-19] MEDS ORDERED: Ubidecarenone 50 MG CAP PO SCH (09:00)
[2019-03-19] MEDS ORDERED: Loratadine 10 MG TAB PO SCH (09:00)
[2019-03-19] MEDS ORDERED: clonazePAM 0.5 MG TAB PO SCH (09:00)
[2019-03-19] MEDS ORDERED: Multivits W-Minerals Liquid 15mL UDCUP PO SCH (09:00)
[2019-03-19] MEDS ORDERED: Calcium Carbonate + Vit D 1 TAB PO SCH (09:00)
== END 2019-03-18 18:35 | disposition home or self-care (01) | DRG 390 ==
LOC: ERS 05:01 → SJJU 11:11
PROVIDERS: ADMIT Specialist; ATTEND Specialist
DX: K56.600 Partial intestinal obstruction, unspecified as to cause (principal); K43.2 Incisional hernia without obstruction or gangrene; E78.00 Pure hypercholesterolemia, unspecified; E03.9 Hypothyroidism, unspecified; I10 Essential (primary) hypertension; M81.0 Age-related osteoporosis without current pathological fracture; F41.9 Anxiety disorder, unspecified; F32.9 Major depressive disorder, single episode, unspecified; Z98.84 Bariatric surgery status; Z93.2 Ileostomy status
CPT/HCPCS: 36415; 74022; 74177; 74250; 80048; 80053; 81003; 81015; 83605; 83690; 85025; 96361; 96374; 96375; C9113; J1650; J2270; J2405; J3411; Q9963; Q9966; Q9967

== ENCOUNTER 2019-09-26 18:32 | Inpatient (IN) | payer MEDICARE, OTHER ==
[~2019-09-26 18:32] MED LIST changes: +Iopamidol-370 76% 500 ML 1 ML ONE; -Sodium Chloride 0.9% 15 ML NEB ONE
[2019-09-26 19:50] LABS: #Lymphocytes 1.1 thou/uL (1.20-3.40); #Monocytes 0.5 thou/uL (0.11-0.59); #Neutrophils 3.7 thou/uL (1.40-6.50); %Basophils 0.3 % (0.0-1.0); %Eosinophils 0.9 % (0.0-10.0); %Lymphocytes 19.9 % (21.0-51.0); %Monocytes 9.5 % (0.0-10.0); %Neutrophils 69.5 % (42.0-75.0); Hemoglobin 12.8 g/dL (12.0-16.0); Mean Corpuscular HGB CONC 31.7 g/dL (32.0-36.0); Mean Corpuscular Hemoglobin 28.8 pg (27.0-31.0); Mean Corpuscular Volume 90.9 fL (78.0-98.0); Mean Platelet Volume 6.8 fL (7.4-10.4); Platelet Count 296 thou/uL (130-400); RBC Distribution Width 12.7 % (11.5-14.5); Red Blood Cell (RBC) Count 4.45 mill/uL (4.20-5.40); White Blood Cell (WBC) Count 5.3 thou/uL (4.8-10.8)
[2019-09-26 20:14] LABS: ALT (SGPT) 22 U/L (8-55); AST (SGOT) 25 U/L (5-34); Albumin 4.1 g/dL (3.4-4.8); Alkaline Phosphatase 104 U/L (40-110); Anion Gap 13 mmol/L (10-20); BUN (Urea Nitrogen) 14 mg/dL (9.8-20.1); Bilirubin, Total 0.5 mg/dL (0.2-1.2); Calc. Creatinine Clearance 0 mL/min (70-130); Calcium 9.5 mg/dL (7.8-10.44); Carbon Dioxide 28 mmol/L (23-31); Chloride 101 mmol/L (98-107); Estimated GFR-MDRD 72; Globulin 3.9 g/dL (2.4-3.5); Glucose 100 mg/dL (83-110); Lipase 51 U/L (8-78); Potassium 3.8 mmol/L (3.5-5.1); Sodium 138 mmol/L (136-145)
[2019-09-26 20:14] LABS: Bilirubin Negative (Negative); Blood, Urine Negative (Negative); Clarity Clear (Clear); Glucose, Urine (Dipstick) Normal (Negative); Leukocyte Negative Leu/uL (Negative); Nitrite Negative (Negative); Protein, Urine (Dipstick) Negative (Neg-Trace); Urobilinogen Normal mg/dL (Less than 2)
[2019-09-26] MEDS ORDERED: Ondansetron PF 4 MG/2 ML Vial ONE (20:33)
[2019-09-26] MEDS ORDERED: Morphine 4 MG/ML VIAL ONE (20:33)
--- NOTE | 2019-09-26 21:09 | CT ---
CT ABDOMEN WITH CONTRAST CT PELVIS WITH CONTRAST: DATE: 09/26/2019 8:44 PM HISTORY: 79-year-old female with abdominal pain, nausea, and abnormal bowel sounds. COMPARISON: 03/17/2019 TECHNIQUE: IV injection of iodinated contrast media: administered. Oral contrast media:Not administered FINDINGS: Again noted is the large defect in the ventral abdominal wall beginning at the far lateral right abdo chaim wall to approximately 9 cm to the left of midline, and beginning at the inferior edge of the left lobe of the liver to 8 cm superior to the symphysis pubis. Multiple loops of small intestine and colon have herniated into the subcutaneous fat, as previously. Within this, there is a new finding of multiple dilated small bowel loops with air-fluid levels. The previously demonstrated severely dil ated single bowel loop with a caliber of 7.7 cm, is no longer present. Currently, the small bowel loops are of the 5-6 cm caliber. There is stool within some of the dilated small bowel loops (Fecaliz ation of small bowel). There are smaller caliber small bowel loops in the right lower quadrant, some of them extending into the hernia, with mural thickening and mural enhancement. Again noted is t he single surgical clip in the midst of the hernia. Again noted is the left lower quadrant ileostomy. Cholecystectomy clips. No hydronephrosis. No splenomegaly. No signs of pancreatitis. No ad renal nodule. No major pathology of liver. Suture line around narrowed stomach suggests previous bariatric surgery. Lung bases are clear. No pneumoperitoneum or ascites. Unremarkable urinary bladder . IMPRESSION: Dilated small bowel loops, Fecalization of small bowel, and mural edema, involving multiple bowel loo ps involved within the very large right-sided ventral hernia, suspicious for bowel obstruction.
[2019-09-26] MEDS ORDERED: Midazolam HCl 2 mg/2 ml Vial ONE (21:58)
[2019-09-27] MEDS ORDERED: Ondansetron ODT 4 MG TAB SL PRN (00:16)
[2019-09-27] MEDS ORDERED: Acetaminophen 325 MG TAB PO PRN (00:16)
[2019-09-27] MEDS ORDERED: Morphine 4 MG/ML VIAL SLOW IVP PRN (00:16)
[2019-09-27] MEDS ORDERED: Ondansetron PF 4 MG/2 ML Vial IVP PRN ×2 (00:16→06:10)
[2019-09-27] MEDS ORDERED: Lactated Ringer's 1,000 ML IV SCH (00:30)
[2019-09-27 01:43] VITALS: BMI 40.0
[2019-09-27] MEDS ORDERED: Ondansetron ODT 4 MG TAB PO PRN (06:10)
[2019-09-27] MEDS ORDERED: Calcium Carbonate 500 MG ChewTAB PO PRN (06:10)
[2019-09-27] MEDS ORDERED: Acetaminophen 650 MG Suppository PR PRN (06:10)
[2019-09-27 06:44] LABS: #Lymphocytes 0.7 thou/uL (1.20-3.40); #Monocytes 0.6 thou/uL (0.11-0.59); #Neutrophils 4.5 thou/uL (1.40-6.50); %Basophils 0.2 % (0.0-1.0); %Eosinophils 0.7 % (0.0-10.0); %Lymphocytes 11.4 % (21.0-51.0); %Monocytes 9.6 % (0.0-10.0); Hemoglobin 11.8 g/dL (12.0-16.0); Mean Corpuscular HGB CONC 31.9 g/dL (32.0-36.0); Mean Corpuscular Hemoglobin 29.2 pg (27.0-31.0); Mean Corpuscular Volume 91.3 fL (78.0-98.0); Mean Platelet Volume 6.9 fL (7.4-10.4); Platelet Count 239 thou/uL (130-400); RBC Distribution Width 12.7 % (11.5-14.5); Red Blood Cell (RBC) Count 4.04 mill/uL (4.20-5.40); White Blood Cell (WBC) Count 5.8 thou/uL (4.8-10.8)
[2019-09-27 07:04] LABS: Lactic Acid 1.3 mmol/L (0.5-2.2)
[2019-09-27] MEDS ORDERED: Morphine 2 MG/ML SYRINGE SLOW IVP PRN (07:06)
[2019-09-27 07:10] LABS: Anion Gap 13 mmol/L (10-20); BUN (Urea Nitrogen) 16 mg/dL (9.8-20.1); Calc. Creatinine Clearance 97 mL/min (70-130); Carbon Dioxide 24 mmol/L (23-31); Chloride 107 mmol/L (98-107); Estimated GFR-MDRD 82; Potassium 4.2 mmol/L (3.5-5.1); Sodium 140 mmol/L (136-145)
[2019-09-27 07:11] LABS: ALT (SGPT) 21 U/L (8-55); AST (SGOT) 29 U/L (5-34); Albumin 3.5 g/dL (3.4-4.8); Alkaline Phosphatase 99 U/L (40-110); Bilirubin, Total 0.6 mg/dL (0.2-1.2); Calcium 8.5 mg/dL (7.8-10.44); Globulin 3.4 g/dL (2.4-3.5); Glucose 107 mg/dL (83-110); Magnesium 1.9 mg/dL (1.6-2.6); Protein, Total 6.9 g/dL (6.0-8.3)
[2019-09-27] MEDS ORDERED: Sodium Chloride 0.65% Nasal 44 ML BOT EA NARE PRN (07:12)
--- NOTE | 2019-09-27 08:06 | HP ---
PRIMARY CARE: Dr. Beatty. PRIMARY DIRECTOR EHS: Dr. Shepherd. CHIEF COMPLAINT: Nausea, vomiting with abdominal discomfort of one week duration. HISTORY OF PRESENT ILLNESS: The patient is a 79-year-old female with ileostomy and multiple abdominal surgeries in the past, presented to the emergency room with above complaints. Over the last one week, the patient developed gradual worsening abdominal discomfort mainly over the right lower quadrant and periumbilical area. She had nausea with poor appetite. She had intermittent vomiting as well. No hematemesis or melena reported. The abdominal pain was intermittent, moderate in intensity, worse after eating. No fever or chills reported. She also noticed decreased output through her ileostomy. In the emergency room, her initial vital signs showed temperature 98.2, respirations of 16, pulse of 75 with a blood pressure of 144/79 with O2 saturation 95% on room air. She underwent a CT scan of the abdomen that showed dilated small bowel loops suspicious for small bowel obstruction. An NG tube has been placed. She received 2 mg Versed, 4 mg morphine, 4 mg Zofran with IV fluids in the emergency room. PAST MEDICAL HISTORY: 1. Incarcerated ventral hernia, currently has ileostomy. 2. Hypothyroidism. 3. Anxiety. 4. Depression. PAST SURGICAL HISTORY: 1. Colectomy with ileostomy due to incarcerated ventral hernia requiring emergent surgery. 2. Gastric bypass 20 years ago. 3. Multiple ventral hernia repairs. ALLERGIES: NO KNOWN DRUG ALLERGIES. CURRENT HOME MEDICATIONS: 1. Ibuprofen as needed. 2. Bupropion 100 mg t.i.d. 3. Vitamin B12 500 mcg daily. 4. Ferrous sulfate 300 mg b.i.d. 5. Flunisolide one spray b.i.d. 6. Cholestyramine 1 packet b.i.d. 7. Coenzyme Q10 500 mg daily. 8. Potassium chloride 20 mEq daily. 9. Cetirizine 10 mg b.i.d. 10. Simethicone as needed. 11. Multivitamin one tablet daily. 12. Levothyroxine 200 mcg daily. 13. Clonazepam 0.5 mg daily. SOCIAL HISTORY: The patient currently lives at home with her family. Her daughter, Jessie, is the decision maker. FAMILY HISTORY: Positive for heart disease and hypertension. REVIEW OF SYSTEMS: All other review of systems was reviewed and were found negative. PHYSICAL EXAMINATION: VITAL SIGNS: As discussed above. GENERAL: A 79-year-old female, in mild distress due to abdominal discomfort. Arnot better after NG tube. HEENT: Head atraumatic and normocephalic. Sclerae anicteric. Moist mucous membranes. No oral lesion. NECK: Supple. No JVD appreciated. No carotid bruit. LUNGS: Clear to auscultation bilaterally. No wheezing, rales, or rhonchi. HEART: S1, S2 present. Regular rate and rhythm. No rubs or gallops. ABDOMEN: Soft. There is a large right-sided ventral hernia with well-healed midline scar. Bowel sounds were present. There was no guarding or rigidity. There was tenderness on palpation mainly in the right lower quadrant. No costovertebral angle tenderness. EXTREMITIES: No edema or calf tenderness. NEUROLOGIC: Grossly nonfocal, moves all 4 extremities. PSYCHIATRY: Alert, awake, and oriented x3. SKIN: Warm and dry. LYMPH NODES: No palpable lymph nodes in the neck. PERIPHERAL VASCULAR: Radial pulses palpable bilaterally. MUSCULOSKELETAL: No joint swelling or tenderness. LABORATORY FINDINGS: CBC showed WBC 5.3 with hemoglobin 12.8, hematocrit 40.5, platelet 296. Chemistry showed sodium 138, potassium 3.8, chloride 101, bicarb 28, BUN of 14, creatinine 0.77. LFTs in normal range. Lactic acid was 1.3, phosphorus 4.0. Urinalysis was negative. CT scan of the abdomen by my review as discussed above. IMPRESSION: 1. Small bowel obstruction. 2. History of incarcerated ventral hernia requiring colectomy. The patient currently has ileostomy. 3. Morbid obesity with BMI of 40 with a history of gastric bypass in the past. 4. Anxiety. 5. Hypothyroidism. 6. Chronic kidney disease, stage 2. 7. Seasonal allergies. PLAN: The patient will be monitored on the surgical floor. NG tube has been placed. We will continue at low intermittent suction. She will be kept n.p.o. We will change IV fluid to D5 half normal saline with potassium. GI prophylaxis. Consult General Surgery. We will resume home medicine once tolerating p.o. The patient understands the above plan of care. Job ID: [id number]
[2019-09-27] MEDS: buPROPion HCl 100 MG TAB PO SCH ×3 (08:22→21:09)
[2019-09-27] MEDS: clonazePAM 0.5 MG TAB PO SCH (08:22)
[2019-09-27] MEDS: Famotidine/PF 20 mg/2ml Vial SLOW IVP SCH ×2 (08:22→21:09)
[2019-09-27] MEDS: D5 1/2 NS w/20 mEq KCL 1,000 ML IV SCH ×3 (08:23→23:51)
--- NOTE | 2019-09-27 10:31 | CON ---
DATE OF CONSULTATION: 09/27/2019 CHIEF COMPLAINT: Obstruction. HISTORY OF PRESENT ILLNESS: This is a 79-year-old female with a history of multiple abdominal operations. She has a history of Stacie-en-Y gastric bypass, multiple hernia repairs including a strangulated hernia repair. She has permanent left-sided colostomy. She was previously admitted to this hospital in March for small-bowel obstruction that resolved without any further intervention. She has chronic large incisional hernia with loss of domain. She notes bloating and nausea last night. No vomiting. She is admitted to the Medical Service for small-bowel obstruction. She notes no significant pain this morning. PAST MEDICAL HISTORY: Includes hypothyroidism, anxiety, and depression. PAST SURGICAL HISTORY: Complex as above. ALLERGIES: NO KNOWN DRUG ALLERGIES. SOCIAL HISTORY: Moved from [place] to [facility]. No smoking, alcohol, or other drugs. REVIEW OF SYSTEMS: Ten-system review of systems is otherwise negative unless described above. FAMILY HISTORY: Noncontributory to GI malignancy or anesthetic-related complication. PHYSICAL EXAMINATION: VITAL SIGNS: Blood pressure is 97/66, pulse 73, respirations 16. She is afebrile. HEENT: Sclerae are anicteric. Oropharynx clear. NECK: No lymphadenopathy. CHEST: Clear. HEART: Regular rate. ABDOMEN: Soft. She has large incisional hernia with loss of domain. No incarceration or strangulation. She is diffuse, mildly tender. She has occasional bowel sounds. Ostomy/colostomy in the left lower abdomen that is full of stool and air. Well-healed abdominal incisions. EXTREMITIES: No ischemia or edema to extremities. LABORATORY AND DIAGNOSTIC DATA: White cell count is 5, hemoglobin 11, and platelet count is 239. Sodium 140, potassium 4.2, and creatinine 0.69. Liver function tests normal. CT scan reviewed. ASSESSMENT: 1. Partial small-bowel obstruction. 2. Large incisional hernia with loss of domain. No incarceration or strangulation. 3. Hypothyroidism. PLAN: Continue NG, IV fluids today. Tomorrow, will undergo Gastrografin small-bowel follow-through. We will follow with you. Job ID: [id number]
[2019-09-27] MEDS: Acetaminophen 325 MG TAB PO PRN ×2 (17:07→21:09)
[2019-09-28] MEDS: Acetaminophen 325 MG TAB PO PRN ×3 (04:09→20:57)
[2019-09-28] MEDS: Levothyroxine Sodium 100 MCG TAB PO SCH (05:03)
[2019-09-28 05:47] LABS: #Lymphocytes 0.7 thou/uL (1.20-3.40); #Monocytes 0.4 thou/uL (0.11-0.59); #Neutrophils 1.7 thou/uL (1.40-6.50); %Basophils 0.3 % (0.0-1.0); %Eosinophils 1.5 % (0.0-10.0); %Lymphocytes 25.2 % (21.0-51.0); %Monocytes 14.1 % (0.0-10.0); Hemoglobin 10.9 g/dL (12.0-16.0); Mean Corpuscular HGB CONC 32.8 g/dL (32.0-36.0); Mean Corpuscular Hemoglobin 30.8 pg (27.0-31.0); Mean Corpuscular Volume 94.2 fL (78.0-98.0); Mean Platelet Volume 7.4 fL (7.4-10.4); Platelet Count 213 thou/uL (130-400); RBC Distribution Width 12.9 % (11.5-14.5); Red Blood Cell (RBC) Count 3.52 mill/uL (4.20-5.40); White Blood Cell (WBC) Count 2.9 thou/uL (4.8-10.8)
[2019-09-28 05:48] LABS: ALT (SGPT) 17 U/L (8-55); AST (SGOT) 25 U/L (5-34); Albumin 3.2 g/dL (3.4-4.8); Alkaline Phosphatase 82 U/L (40-110); Anion Gap 11 mmol/L (10-20); BUN (Urea Nitrogen) 6 mg/dL (9.8-20.1); Bilirubin, Total 0.5 mg/dL (0.2-1.2); Calc. Creatinine Clearance 108 mL/min (70-130); Calcium 7.8 mg/dL (7.8-10.44); Carbon Dioxide 23 mmol/L (23-31); Chloride 108 mmol/L (98-107); Estimated GFR-MDRD Greater than 90; Globulin 3.2 g/dL (2.4-3.5); Glucose 115 mg/dL (83-110); Magnesium 1.7 mg/dL (1.6-2.6); Phosphorus 2.6 mg/dL (2.3-4.7); Potassium 4.1 mmol/L (3.5-5.1); Protein, Total 6.4 g/dL (6.0-8.3); Sodium 138 mmol/L (136-145)
--- NOTE | 2019-09-28 09:07 | PRG ---
DATE OF SERVICE: 09/28/2019 SUBJECTIVE: Ms. Lopez feels fine from a nausea standpoint. Her bag filled up with small amounts of stool throughout the day yesterday, not quite as much air. She is noting some cramping in her suprapubic area and left along her left flank consistent with symptom she had from previous urinary tract infections. OBJECTIVE: VITAL SIGNS: She is afebrile. Her vital signs are stable. Gastric drainage only 100. Stool 700. LABORATORY DATA: White cell count is 2 with normal differential. Hemoglobin 10, creatinine 0.62. UA on presentation was clear. ASSESSMENT: Partial small bowel obstruction, likely resolving. PLAN: 1. Gastrografin small bowel follow-through today. 2. Lower abdominal cramping could be related to the bowel obstruction, but we will recheck her UA. Job ID: [id number]
[2019-09-28] MEDS: D5 1/2 NS w/20 mEq KCL 1,000 ML IV SCH ×2 (09:18→16:16)
[2019-09-28] MEDS: buPROPion HCl 100 MG TAB PO SCH ×3 (09:19→20:57)
[2019-09-28] MEDS: Famotidine/PF 20 mg/2ml Vial SLOW IVP SCH ×2 (09:19→20:57)
[2019-09-28] MEDS: clonazePAM 0.5 MG TAB PO SCH (09:34)
--- NOTE | 2019-09-28 12:01 | PDOC.HOSPP ---
- Subjective Encounter Date: 09/28/19 Encounter Time: 11:00 Subjective: Patient seen and examined for SBO. Abd pain improving. No N/V. Had small BM. No other complaints. No overnight events - Objective Vital Signs & Weight: Vital Signs (12 hours) Temp Pulse Resp BP Pulse Ox 09/28/19 11:00 97.5 F L 79 18 113/71 99 09/28/19 07:37 97.9 F 67 18 103/68 94 L 09/28/19 05:17 96 09/28/19 03:00 98.4 F 65 17 130/75 95 Weight Weight 205 lb 0.478 oz I&O: 09/27/19 09/28/19 09/29/19 06:59 06:59 06:59 Intake Total 800 1800 Output Total 75 800 Balance 725 1000 Result Diagrams: 09/28/19 04:59 09/28/19 04:59 Radiology Reviewed by me: Yes (CT abd - SBO) Hospitalist ROS - Review of Systems Respiratory: denies: cough, dry, shortness of breath, hemoptysis, SOB with excertion, pleuritic pain, sputum, wheezing, other Cardiovascular: denies: chest pain, palpitations, orthopnea, paroxysmal noc. dyspnea, edema, light headedness, other - Medication Medications: Active Medications Generic Name Dose Route Start Last Admin Trade Name Freq PRN Reason Stop Dose Admin Acetaminophen 650 mg 09/27/19 06:10 09/28/19 11:10 Tylenol PO 650 mg Q4H PRN Administration Headache/Fever/Mild Pain (1-3) Bupropion HCl 100 mg 09/27/19 09:00 09/28/19 09:19 Wellbutrin PO 100 mg TID VICTOR M Administration Famotidine 20 mg 09/27/19 09:00 09/28/19 09:19 Pepcid SLOW IVP 20 mg Q12HR VICTOR M Administration Potassium Chloride/Dextrose/Sod Cl 1,000 mls @ 125 mls/hr 09/27/19 07:45 09:18 D5 1/2 Ns W/20 Meq Kcl IV 1,000 mls .Q8H VICTOR M Administration Levothyroxine Sodium 200 mcg 09/28/19 06:00 09/28/19 05:03 Synthroid PO 200 mcg 0600 VICTOR M Administration Ondansetron HCl 4 mg 09/27/19 06:10 09/27/19 17:18 Zofran Odt PO 4 mg Q6H PRN Administration Nausea/Vomiting - Exam General Appearance: NAD Heart: RRR, no gallops Respiratory: no wheezes, no rales, no ronchi Gastrointestinal: soft, no guarding, no rigidity Gastrointestinal - other findings: BS + Neurological: no new deficit Hosp A/P - Plan DVT proph w/SCDs 1. Small bowel obstruction. 2. History of incarcerated ventral hernia requiring colectomy and ileostomy. 3. Morbid obesity with BMI of 40 with a history of gastric bypass in the past. 4. Anxiety. 5. Hypothyroidism. 6. Chronic kidney disease, stage 2. 7. Seasonal allergies. PLAN: Cont NG tube suction Small bowel f/t today Cont IVF Pain control Cont other meds Update @1400 UA c/w UTI - Will add IV Ceftriaxone
--- NOTE | 2019-09-28 12:42 | RAD ---
EXAM: XR Small Bowel STANDARD PROVIDED CLINICAL HISTORY: Small bowel obstruction COMPARISON: CT 09/26/2019 FINDINGS: Contrast material was administered via the patient's enteric catheter. There is transit of contrast m aterial from the stomach to the patient's ostomy within 1 hour. Nonspecific ectatic loops of small bowel are demonstrated. IMPRESSION: No evidence for high-grade obstruction.
[2019-09-28 13:35] LABS: Bacteria/HPF 1+ HPF (None Seen); Bilirubin Negative (Negative); Blood, Urine Trace (Negative); Clarity Clear (Clear); Glucose, Urine (Dipstick) Normal (Negative); Leukocyte 250 Leu/uL (Negative); Nitrite Negative (Negative); Protein, Urine (Dipstick) 10 mg/dL (Neg-Trace); Squamous Epithelial 0-3 HPF (0-3); Urobilinogen Normal mg/dL (Less than 2); WBC/HPF Greater than 50 HPF (0-3)
[2019-09-28 13:36] LABS: Urine Culture Reflex Yes Yes
[2019-09-28] MEDS ORDERED: cefTRIAXone\\ROCEPHIN 1 GM in Sodium Chloride 0.9% 100 ML IVPB SCH (15:00)
[2019-09-28] MEDS ORDERED: MD-Gastroview 120 ML BOT ONE (16:11)
[2019-09-28] MEDS ORDERED: clonazePAM 0.5 MG TAB PO SCH (21:00)
[2019-09-29] MEDS: D5 1/2 NS w/20 mEq KCL 1,000 ML IV SCH ×3 (00:45→08:24)
[2019-09-29 05:12] LABS: #Eosinphils 0.1 thou/uL (0.0-0.7); #Lymphocytes 0.8 thou/uL (1.20-3.40); #Monocytes 0.5 thou/uL (0.11-0.59); #Neutrophils 2.3 thou/uL (1.40-6.50); %Basophils 0.6 % (0.0-1.0); %Eosinophils 1.8 % (0.0-10.0); %Lymphocytes 21.9 % (21.0-51.0); %Monocytes 12.5 % (0.0-10.0); %Neutrophils 63.3 % (42.0-75.0); Hemoglobin 10.6 g/dL (12.0-16.0); Mean Corpuscular HGB CONC 31.3 g/dL (32.0-36.0); Mean Corpuscular Hemoglobin 29.4 pg (27.0-31.0); Mean Corpuscular Volume 93.7 fL (78.0-98.0); Mean Platelet Volume 6.7 fL (7.4-10.4); Platelet Count 209 thou/uL (130-400); RBC Distribution Width 12.8 % (11.5-14.5); Red Blood Cell (RBC) Count 3.61 mill/uL (4.20-5.40); White Blood Cell (WBC) Count 3.7 thou/uL (4.8-10.8)
[2019-09-29] MEDS: Levothyroxine Sodium 100 MCG TAB PO SCH (05:56)
[2019-09-29 06:04] LABS: ALT (SGPT) 16 U/L (8-55); AST (SGOT) 18 U/L (5-34); Albumin 3.2 g/dL (3.4-4.8); Alkaline Phosphatase 83 U/L (40-110); Anion Gap 12 mmol/L (10-20); BUN (Urea Nitrogen) Less than 4 mg/dL (9.8-20.1); Bilirubin, Total 0.3 mg/dL (0.2-1.2); Calc. Creatinine Clearance 115 mL/min (70-130); Calcium 7.7 mg/dL (7.8-10.44); Carbon Dioxide 26 mmol/L (23-31); Chloride 106 mmol/L (98-107); Estimated GFR-MDRD Greater than 90; Glucose 107 mg/dL (83-110); Magnesium 1.8 mg/dL (1.6-2.6); Phosphorus 2.5 mg/dL (2.3-4.7); Potassium 3.6 mmol/L (3.5-5.1); Protein, Total 6.2 g/dL (6.0-8.3); Sodium 140 mmol/L (136-145)
[2019-09-29 07:56] VITALS: BP 119/66; TEMP 97.9
[2019-09-29] MEDS: Famotidine/PF 20 mg/2ml Vial SLOW IVP SCH (08:24)
[2019-09-29] MEDS: buPROPion HCl 100 MG TAB PO SCH (08:24)
--- NOTE | 2019-09-29 10:02 | PRG ---
DATE OF SERVICE: 09/29/2019 SUBJECTIVE: Ms. Lopez is doing well today. She tolerated liquid diet. She is having ostomy output. She has no more bloating or abdominal pain. OBJECTIVE: VITAL SIGNS: She is afebrile. Vital signs are stable. ABDOMEN: Soft. Her large abdominal hernia is stable. She has air and stool in her bag. ASSESSMENT: Small bowel obstruction, resolved; history of loss of domain incisional hernia, no need for intervention at this time. PLAN: Discharge home if okay with the surgery service. Follow up with Dr. Hook as an outpatient. Job ID: [id number]
--- NOTE | 2019-09-30 22:22 | DIS ---
DATE OF ADMISSION: 09/26/2019 DATE OF DISCHARGE: 09/29/2019 DISCHARGE DISPOSITION: Home. FOLLOWUP: 1. Follow up with primary care physician, Dr. Beatty in 1 week. 2. Follow up with General Surgery as outpatient. ALLERGIES: NO KNOWN DRUG ALLERGIES. DISCHARGE MEDICATIONS: Omnicef 300 mg twice daily for next 3 days for UTI. All other home medications were left unchanged. The patient was advised to reduce cholestyramine dose to daily. The patient was seen and examined on the day of discharge. Denies any new complaints. No chest pain, shortness of breath, palpitations reported. BRIEF HOSPITAL COURSE: The patient is a 79-year-old female, with incarcerated ventral hernia, status post colectomy with ileostomy, presented to the emergency room with nausea and vomiting along with abdominal discomfort of 1 week duration. Workup was consistent with small-bowel obstruction. The patient was managed conservatively with NG tube, n.p.o. status along with IV hydration. The patient was evaluated by General Surgery, Dr. Khanna. She underwent small-bowel follow-through next day with resolution of the small bowel obstruction. She is tolerating liquid diet and has been cleared by General Surgery for discharge. FINAL DIAGNOSES: 1. Small bowel obstruction, resolved. 2. Urinary tract infection, present on admission. 3. History of incarcerated ventral hernia requiring colectomy and ileostomy. 4. Morbid obesity with a BMI of 40. 5. History of gastric bypass in the past. 6. Anxiety. 7. Hypothyroidism. 8. Chronic kidney disease, stage 2. 9. Seasonal allergies. 10. Chronic anemia. Job ID: [id number]
--- NOTE | 2019-09-30 23:40 | PQF ---
NIALL MCGRAW MALIK MD [id number] SURG [id number] CLINICAL DOCUMENTATION CLARIFICATION FORM: POST DISCHARGE Addendum to original discharge summary date: ____ Late entry note date: __ DATE: 09/30/2019 ATTN: Edwardo Ramos Please exercise your independent, professional judgment in responding to the clarification form. Clinical indicators are provided on the bottom of this form for your review In your clinical opinion based on clinical findings below, can you please specify etiology of Small bowel obstruction if due to : Please check appropriate box(s): [ ] Ventral Hernia [ ] Incisional hernia [ ] Ileostomy complication [ ] Other diagnosis [ x ] Unable to determine In addition, please specify: Present on Admission (POA): [ ] Yes [ ] No [ ] Unable to determine For continuity of documentation, please document condition throughout progress notes and discharge summary. Thank You. CLINICAL INDICATORS - SIGNS / SYMPTOMS / LABS CT abdomen p2 09/26 Impression : Bowel loops involved within the very large right -sided ventral hernia, suspicious for bowel obstruction H&P p1 09/26 Dr Jade Nausea and vomiting with abdominal discomfort of one week duration H&P p1 09/26 Dr Jade Over the last one week, the patient develop gradual worsening abdominal discomfort mainly over the right lower quadrant and periumbilical area H&P p3 09/26 Dr Jade History of incarcerated ventral hernia requiring colectomy , the patient currently has ileostomy RISK FACTORS H&P p1 09/26 79 year-old female H&P p1 09/26 s/p Colectomy with Ileostomy H&P p1 09/26 s/p Gastric Bypass 20 years ago H&P p1 09/26 s/p multiple H&P p3 09/26 Small bowel obstruction Consult p2 09/27 Large incisional hernia with loss of domain. No incarceration or strangulation TREATMENTS: H&P p3 09/26 - Monitor on Surgical floor H&P p3 09/26 - NG tube placement H&P p3 09/26 - Kept on NPO H&P p3 09/26 - Low intermittent suction GS consult 09/27 Darío Mcnamara GS consult 09/27 p2 undergo Gastrografin small-bowel (This form is maintained as a part of the permanent medical record) 2014 [email or web address] All Rights Reserved [email or web address] [not provided] MTDD
== END 2019-09-29 12:23 | disposition home or self-care (01) | DRG 389 ==
LOC: ERS 18:32 → OBSVTOIN 23:50 → SURG B 23:50
PROVIDERS: ADMIT Internal Medicine; ATTEND Internal Medicine
DX: K56.600 Partial intestinal obstruction, unspecified as to cause (principal); N39.0 Urinary tract infection, site not specified; Z68.41 Body mass index [BMI] 40.0-44.9, adult; E66.01 Morbid (severe) obesity due to excess calories; F41.9 Anxiety disorder, unspecified; E03.9 Hypothyroidism, unspecified; N18.2 Chronic kidney disease, stage 2 (mild); J30.2 Other seasonal allergic rhinitis; D64.9 Anemia, unspecified; F32.9 Major depressive disorder, single episode, unspecified; K43.2 Incisional hernia without obstruction or gangrene; Z90.49 Acquired absence of other specified parts of digestive tract; Z98.84 Bariatric surgery status; Z79.899 Other long term (current) drug therapy; Z79.890 Hormone replacement therapy; Z93.2 Ileostomy status; Z87.440 Personal history of urinary (tract) infections
CPT/HCPCS: 36415; 74177; 74250; 80053; 81001; 81003; 83605; 83690; 83735; 84100; 85025; 87086; 96361; 96374; 96375; J0696; J2250; J2270; J2405; J3490; Q0162; Q9963; Q9967; S0028

== ENCOUNTER 2020-02-17 22:15 | Inpatient (IN) | payer MEDICARE, OTHER ==
[2020-02-17] MEDS ORDERED: Ondansetron PF 4 MG/2 ML Vial ONE (23:20)
[2020-02-17] MEDS ORDERED: Morphine 4 MG/ML VIAL ONE (23:20)
[2020-02-18] MEDS ORDERED: Sodium Chloride 0.9% 1,000 ML IV SCH (02:19)
[2020-02-18] MEDS: Ondansetron PF 4 MG/2 ML Vial IVP PRN (02:28)
[2020-02-18 02:33] VITALS: BMI 41.6
--- NOTE | 2020-02-18 03:33 | HP ---
PRIMARY CARE PHYSICIAN: Theresa Beatty DO CHIEF COMPLAINT: "I feel like I have a bowel obstruction." HISTORY OF PRESENT ILLNESS: The patient is a very pleasant 79-year-old female with past medical history significant for ileostomy, incarcerated ventral hernia, hypothyroidism, anxiety and depression. She presents to the ER today for abdominal distention and pain. She states that she gets a bowel obstruction about 2-3 times per year, that warrants need for treatment. This started about 9:00 p.m. two days ago and she was unable to get through it on her own at home. She has had constant cramping since that time, along with nausea. She presented to the ER in [place] earlier today. They ordered lab work, administered antibiotics, Levaquin and pain medication fentanyl and started IV fluids, and they performed an abdominal CT. She was then transferred over to the [facility] for a surgical consult. PAST MEDICAL HISTORY: Incarcerated ventral hernia, currently has ileostomy, hypothyroidism, anxiety, depression. PAST SURGICAL HISTORY: Colectomy with ileostomy, gastric bypass surgery 20 years ago. Multiple ventral hernia repairs. ALLERGIES: NO KNOWN DRUG ALLERGIES. MEDICATIONS: 1. Systane eye drops as needed. 2. [place]-3 capsule 500 mg orally. 3. CoQ10 100 mg daily. 4. Cetirizine 10 mg daily. 5. Calcium plus D 600 mg. 6. B complex-vitamin B12 5000 mcg once a day. 7. Tramadol 50 mg every 6 hours as needed for pain. 8. Ferrous sulfate 220 mg in 5 mL. 9. Levothyroxine 88 mcg in the morning. 10. Prevalite 4 g daily. 11. Bupropion 100 mg three times a day. 12. Clonazepam 0.5 mg once a day. 13. Albuterol 90 mcg inhalation as needed. SOCIAL HISTORY: The patient lives at home, ambulates with a cane. Her daughter , Jessie is her decision maker. FAMILY HISTORY: Positive for heart disease and hypertension. REVIEW OF SYSTEMS: All other review of systems was reviewed and found negative. PHYSICAL EXAMINATION: VITAL SIGNS: Blood pressure 148/75, temperature 98 degrees Fahrenheit orally, pulse 63, respiratory rate 18, O2 saturation 98% on room air. GENERAL: The patient is in mild distress due to abdominal discomfort. HEENT: Head, atraumatic, normocephalic. Sclerae anicteric. Moist mucous membranes. NECK: Supple. No JVD. No lymphadenopathy. LUNGS: Clear to auscultation bilaterally. No wheezing or rhonchi. No rales. HEART: Regular rate and rhythm. No rubs, no gallops, no murmurs. ABDOMEN: Distended. Large right-sided ventral hernia with well healed midline scar. Hyperactive bowel sounds. No guarding or rigidity. EXTREMITIES: No edema or calf tenderness. NEURO: Focally intact. PSYCH: Alert, awake, and oriented. Normal affect and normal behavior. LABORATORY DATA: White blood cells 6.3, hemoglobin 12.3, hematocrit 42.2. Sodium 141, potassium 4.1, BUN 13, creatinine 0.72, GFR 78, glucose 127. Lactic acid 1.5, calcium 9.3. Troponin negative. Abdomen and pelvis CT shows a small bowel obstruction with fecalization in the small bowel, large ventral hernia into which the dilated small bowel herniates. IMPRESSION: 1. Small bowel obstruction. 2. History of incarcerated ventral hernia requiring colectomy. The patient currently with ileostomy. 3. Anxiety. 4. Hypothyroidism. 5. UTI PLAN: The patient will be monitored on the surgical floor. An NG tube has been placed that will continue with low-intermittent suction. She will be kept n.p.o. and normal saline will be administered. GI and DVT prophylaxis in place. IV antibiotics for her UTI. General Surgery has already been consulted by the ER physicians. Patient wishes to be a full code. Patient discussed with Dr. Hernadez. Job ID: [id number] MTDD
[2020-02-18] MEDS: Morphine 2 MG/ML SYRINGE SLOW IVP PRN ×4 (03:54→22:15)
[2020-02-18] MEDS: cefTRIAXone\\ROCEPHIN 2 GM in Sodium Chloride 0.9% 100 ML IVPB SCH (03:55)
[2020-02-18 06:15] LABS: #Lymphocytes 0.7 thou/uL (1.20-3.40); #Monocytes 0.5 thou/uL (0.11-0.59); #Neutrophils 3.4 thou/uL (1.40-6.50); %Basophils 0.4 % (0.0-1.0); %Eosinophils 0.3 % (0.0-10.0); %Lymphocytes 14.4 % (21.0-51.0); %Monocytes 11.2 % (0.0-10.0); %Neutrophils 73.7 % (42.0-75.0); Hemoglobin 10.8 g/dL (12.0-16.0); Mean Corpuscular HGB CONC 31.7 g/dL (32.0-36.0); Mean Corpuscular Hemoglobin 28.7 pg (27.0-31.0); Mean Corpuscular Volume 90.5 fL (78.0-98.0); Mean Platelet Volume 7.4 fL (7.4-10.4); Platelet Count 215 thou/uL (130-400); RBC Distribution Width 13.6 % (11.5-14.5); Red Blood Cell (RBC) Count 3.76 mill/uL (4.20-5.40); White Blood Cell (WBC) Count 4.6 thou/uL (4.8-10.8)
[2020-02-18 06:17] LABS: INR-International Normal Ratio 1.1; PTT 27.6 sec (22.9-36.1); Prothrombin Time 14.6 sec (12.0-14.7)
[2020-02-18 06:34] LABS: Anion Gap 11 mmol/L (10-20); BUN (Urea Nitrogen) 11 mg/dL (9.8-20.1); Calc. Creatinine Clearance 116 mL/min (70-130); Calcium 7.8 mg/dL (7.8-10.44); Carbon Dioxide 24 mmol/L (23-31); Chloride 110 mmol/L (98-107); Estimated GFR-MDRD Greater than 90; Glucose 107 mg/dL (83-110); Potassium 3.8 mmol/L (3.5-5.1); Sodium 141 mmol/L (136-145)
[2020-02-18] MEDS: Pantoprazole 40 MG VIAL IVP SCH (08:24)
--- NOTE | 2020-02-18 08:48 | RAD ---
KUB: HISTORY: Evaluation of NG tube placement. FINDINGS: This is a film done as a high KUB and shows an NG tube coiled in the fundus region of the stomach. C hest examination shows some parenchymal changes developing in both lung hilliard. I do not have any re cent chest exams for comparison. IMPRESSION: 1. Nasogastric tube present in the stomach. 2. Suggestion of some minimal infiltrative change in the right mid lung field. Some questionable ch ligia in the left base. This may just be overlying soft tissue. Dedicated chest films would be sugge sted for assessment. POS: MOJGAN
[2020-02-18] MEDS ORDERED: Acetaminophen 650 MG Suppository PR PRN (08:59)
[2020-02-18] MEDS ORDERED: Ondansetron PF 4 MG/2 ML Vial IVP PRN (08:59)
[2020-02-18] MEDS ORDERED: Acetaminophen 325 MG TAB PO PRN (08:59)
--- NOTE | 2020-02-18 09:25 | RAD ---
Abdomen one view HISTORY: Nasogastric tube placement. FINDINGS: There is gaseous and fecal distention of the colon. Small bowel gas pattern is nonspecific. Metallic clips overlie the right abdomen. Phleboliths project over the pelvis. Rounded opacity over left lower quadrant has the appearance of an ostomy appliance. Proximal sidehole associated with a nasogastric tube now lies at the level of the GE junction. IMPRESSION : Nasogastric tube should probably be advanced at least 10 cm for better positioning.
[2020-02-18 09:37] LABS: Magnesium 1.9 mg/dL (1.6-2.6); Phosphorus 3.2 mg/dL (2.3-4.7)
--- NOTE | 2020-02-18 10:04 | RAD ---
Abdomen one view HISTORY: Nasogastric tube reposition. FINDINGS: Proximal sidehole of the nasogastric tube now lies immediately below the level of the left hemidiaphragm. Distention of the colon and other findings are otherwise stable. Nasogastric tube should probably still be advanced approximately 10 cm for better positioning.
[2020-02-18] MEDS: Famotidine/PF 20 mg/2ml Vial SLOW IVP SCH ×2 (10:39→21:28)
[2020-02-18] MEDS: Sodium Chloride 0.9% 1,000 ML IV SCH ×3 (10:39→21:26)
--- NOTE | 2020-02-18 10:46 | PDOC.FMACP ---
Advance Care Planning - Problem (1) Palliative care encounter Status: Acute Code(s): Z51.5 - ENCOUNTER FOR PALLIATIVE CARE (2) Abdominal pain Status: Acute Code(s): R10.9 - UNSPECIFIED ABDOMINAL PAIN (3) Sinus bradycardia Status: Acute Code(s): R00.1 - BRADYCARDIA, UNSPECIFIED (4) Abdominal hernia Status: Chronic (5) Hypothyroid Status: Chronic Code(s): E03.9 - HYPOTHYROIDISM, UNSPECIFIED (6) Ileostomy in place Status: Chronic Code(s): Z93.2 - ILEOSTOMY STATUS - Note Participants: patient, palliative care Summary: Palliative Care introduced Advanced Care Planning. The diagnosis, prognosis and goals of care were discussed. Appropriate forms and documentation to accomplish the goals of care were discussed. All questions were answered. Ms Lopez was given an opportunity to decline. She states that she currently has a MPOA at home designating her two daughters as equal decision makers in the event she can not convey her wishes. She was provided the Directive to Physicians, and states she will discuss further with her daughters,however does not desire to complete at this time. Continue with full resuscitation measures and aggressive treatments. Time Spent (mins): 30
[2020-02-18] MEDS ORDERED: Ketorolac Tromethamine 30 MG/ML VIAL IVP PRN (12:08)
--- NOTE | 2020-02-18 13:09 | CON ---
DATE OF CONSULTATION: CHIEF COMPLAINT: Partial small bowel obstruction. HISTORY OF PRESENT ILLNESS: This is a 79-year-old female, who has had multiple abdominal surgeries and previous small-bowel obstructions, last one was in September. She reports a 24-hour history of abdominal pain similar to previous obstructions. She says that her ostomy is continuing to work and putting out bowel movement. She says that the pain is stable. She has had nausea, but no vomiting. PAST MEDICAL HISTORY: Morbid obesity. She has loss of abdominal domain. She said one of the surgeons had completely removed the abdominal musculature from the right side of her abdomen, so she has a very large chronic ventral hernia. She has hypothyroidism, rheumatoid arthritis. PAST SURGICAL HISTORY: She had an open Stacie-en-Y gastric bypass 30 years ago in [place]. She had a revision of that, then she had a ventral hernia repair with mesh, then she had an abdominoplasty, then she had an incarcerated hernia that required removal of most of her colon and some small bowel. MEDICATIONS: Include; 1. Albuterol. 2. Clonazepam. 3. Bupropion. 4. Levothyroxine. 5. Tramadol. 6. Ferrous sulfate. 7. B1. 8. B12. 9. Simethicone. 10. Calcium carbonate with D3. 11. Cetirizine. 12. Vitamin A, C, zinc, copper. 13. CoQ10. 14. Propylene glycol. 15. [place]-3. ALLERGIES: SHE HAS NO KNOWN DRUG ALLERGIES. SOCIAL HISTORY: She is single. Retired. Denies tobacco use or use of alcohol. FAMILY HISTORY: Lung cancer and heart disease. PHYSICAL EXAMINATION: GENERAL: Morbidly obese female, awake, alert, in no apparent distress. She has an NG tube in place that has put out minimal. VITAL SIGNS: Her temperature is 97.6, pulse 58, blood pressure 120/62. LUNGS: Clear. HEART: Regular rate and rhythm. ABDOMEN: She has large hypertrophic scars in the midline and to the right, her entire right abdomen is a hernia. There is no tenderness. No palpable mass. LABORATORY DATA: Her white count is 4.6, hemoglobin and hematocrit are 10 and 34, platelet count 215. Electrolytes are fine. Coags are fine. She had a CT scan of the abdomen and pelvis that showed a large ventral hernia, large amount of small bowel herniated, small bowel is dilated up to 4 cm in size, there is some fecalization of the small bowel, no free air or free fluid. KUB showed that the NG tube was not down far enough. ASSESSMENT: She has, looks like a colostomy, but she says an ileostomy on the left lower quadrant that has stool within it and air. So, she has a partial small bowel obstruction, probably chronic. She said that the surgeon that last operated on are so tremendous. PLAN: Try and treat this nonsurgically. Continue NG suction, IV hydration. Recommend a Gastrografin small-bowel follow-through in the morning. Job ID: [id number]
[2020-02-18] MEDS: Enoxaparin Sodium 40 MG/0.4 ML SYRINGE SC SCH (21:27)
[2020-02-19] MEDS: cefTRIAXone\\ROCEPHIN 2 GM in Sodium Chloride 0.9% 100 ML IVPB SCH (04:48)
[2020-02-19] MEDS: Sodium Chloride 0.9% 1,000 ML IV SCH ×2 (04:48→16:05)
[2020-02-19 06:16] LABS: #Lymphocytes 0.6 thou/uL (1.20-3.40); #Monocytes 0.4 thou/uL (0.11-0.59); #Neutrophils 2.4 thou/uL (1.40-6.50); %Basophils 0.2 % (0.0-1.0); %Eosinophils 0.6 % (0.0-10.0); %Lymphocytes 17.9 % (21.0-51.0); %Monocytes 11.5 % (0.0-10.0); %Neutrophils 69.8 % (42.0-75.0); Hemoglobin 10.2 g/dL (12.0-16.0); Mean Corpuscular HGB CONC 30.9 g/dL (32.0-36.0); Mean Corpuscular Hemoglobin 28.3 pg (27.0-31.0); Mean Corpuscular Volume 91.6 fL (78.0-98.0); Mean Platelet Volume 7.5 fL (7.4-10.4); Platelet Count 186 thou/uL (130-400); RBC Distribution Width 13.6 % (11.5-14.5); Red Blood Cell (RBC) Count 3.62 mill/uL (4.20-5.40); White Blood Cell (WBC) Count 3.4 thou/uL (4.8-10.8)
[2020-02-19 06:34] LABS: ALT (SGPT) 10 U/L (8-55); AST (SGOT) 22 U/L (5-34); Albumin 2.9 g/dL (3.4-4.8); Alkaline Phosphatase 84 U/L (40-110); Anion Gap 11 mmol/L (10-20); BUN (Urea Nitrogen) 10 mg/dL (9.8-20.1); Bilirubin, Total Less than 0.2 mg/dL (0.2-1.2); Calc. Creatinine Clearance 118 mL/min (70-130); Calcium 7.2 mg/dL (7.8-10.44); Carbon Dioxide 22 mmol/L (23-31); Chloride 112 mmol/L (98-107); Estimated GFR-MDRD Greater than 90; Globulin 2.8 g/dL (2.4-3.5); Glucose 91 mg/dL (83-110); Magnesium 1.9 mg/dL (1.6-2.6); Phosphorus 2.7 mg/dL (2.3-4.7); Potassium 3.4 mmol/L (3.5-5.1); Protein, Total 5.7 g/dL (6.0-8.3); Sodium 142 mmol/L (136-145)
[2020-02-19] MEDS: Ondansetron PF 4 MG/2 ML Vial IVP PRN (10:02)
[2020-02-19] MEDS: Pantoprazole 40 MG VIAL IVP SCH (10:02)
[2020-02-19] MEDS: Famotidine/PF 20 mg/2ml Vial SLOW IVP SCH ×2 (10:02→19:49)
[2020-02-19] MEDS ORDERED: MD-Gastroview 120 ML BOT ONE (13:22)
--- NOTE | 2020-02-19 14:37 | RAD ---
Exam: Gastrografin small bowel series HISTORY: Evaluate for bowel obstruction COMPARISON: None FINDINGS: Pipe Smoker Machine Operator radiograph: Supine locomotive firer radiograph demonstrates a nasogastric tube. Prominent air-filled loops of small bowel are noted in the right upper quadrant and right hemiabdomen. Left lower quadrant colostomy is identified. Patient was administered Gastrografin. Gastrografin opacifies multiple normal caliber small bowel loo ps in the midabdomen. The small bowel loops opacified and the 20 and 30 minute images are moderately to markedly distended. Subsequent small bowel loops appear to be decompressed and are opac ified with contrast on the one hour image. On the 2 hour and 3 hour images, contrast has passed from the distended proximal small bowel loops and continues to opacify decompressed mid to distal sma ll bowel loops. On the 5 hour image, contrast has passed through the small bowel and appears to be in the colostomy bag in the left lower quadrant. IMPRESSION: No evidence of high-grade obstruction Transcribed Date/Time: 02/19/2020 6:05 PM
--- NOTE | 2020-02-19 16:10 | PRG ---
DATE OF SERVICE: 02/19/2020 SUBJECTIVE: The patient reports feeling great. No nausea or vomiting. Her small bowel follow through was normal. Her ostomy is working well. OBJECTIVE: GENERAL: On exam, she looks good. She is awake, alert, in no distress. VITAL SIGNS: Temperature 97.6, pulse 56, blood pressure 130/67. ABDOMEN: Soft, nondistended, nontender. She has a very large hernia on the right side. Ostomy looks healthy. Small bowel follow through is fine. PLAN: Discontinue NG. Clear liquid diet. Job ID: [id number]
--- NOTE | 2020-02-19 18:07 | PDOC.HOSPP ---
- Subjective Encounter Date: 02/19/20 Encounter Time: 08:40 Subjective: Pt seen for followup re: SBO. Feels better today. - Objective Vital Signs & Weight: Vital Signs (12 hours) Temp Pulse Resp BP Pulse Ox 02/19/20 15:49 97.6 F 56 L 14 130/67 98 02/19/20 11:59 97.3 F L 58 L 14 138/60 99 02/19/20 10:04 95 02/19/20 08:00 97.6 F 58 L 18 122/70 95 Weight Admit Weight 213 lb 4.992 oz Weight 213 lb 4.992 oz I&O: 02/18/20 02/19/20 02/20/20 06:59 06:59 06:59 Intake Total 400 1600 1450 Output Total 150 1005 950 Balance 250 595 500 Result Diagrams: 02/19/20 05:38 02/19/20 05:38 Additional Labs: Labs and MARs reviewed by me. Hospitalist ROS - Review of Systems Cardiovascular: denies: chest pain, palpitations, orthopnea, paroxysmal noc. dyspnea, edema, light headedness Gastrointestinal: denies: nausea, vomiting, abdominal pain, diarrhea, constipation, melena, hematochezia - Medication Medications: Active Medications Generic Name Dose Route Start Last Admin Trade Name Freq PRN Reason Stop Dose Admin Enoxaparin Sodium 40 mg 02/18/20 21:00 02/18/20 21:27 Lovenox SC 40 mg 2100 VICTOR M Administration Famotidine 20 mg 02/18/20 09:00 02/19/20 10:02 Pepcid SLOW IVP 20 mg Q12HR VICTOR M Administration Ceftriaxone Sodium 2 gm/ 100 mls @ 200 mls/hr 02/18/20 04:00 02/19/20 04:48 Sodium Chloride IVPB 100 mls 0400 VICTOR M Administration Sodium Chloride 1,000 mls @ 125 mls/hr 02/18/20 08:59 02/19/20 16:05 Normal Saline 0.9% IV 1,000 mls .Q8H VICTOR M Administration Ketorolac Tromethamine 15 mg 02/18/20 12:08 02/18/20 12:47 Toradol IVP 02/23/20 12:09 15 mg Q6H PRN Administration Pain Morphine Sulfate 2 mg 02/18/20 02:19 02/18/20 22:15 Morphine SLOW IVP 2 mg Q4H PRN Administration Pain Ondansetron HCl 4 mg 02/18/20 02:19 02/19/20 10:02 Zofran IVP 4 mg Q6H PRN Administration Nausea/Vomiting Ondansetron HCl 4 mg 02/18/20 08:59 02/18/20 22:27 Zofran IVP 4 mg Q6H PRN Administration Nausea/Vomiting Pantoprazole Sodium 40 mg 02/18/20 09:00 02/19/20 10:02 Protonix IVP 40 mg DAILY VICTOR M Administration - Exam General Appearance: awake alert Eye: anicteric sclera ENT: moist mucosa Neck: supple Heart: RRR Respiratory: CTAB Gastrointestinal: soft, non-tender, normal bowel sounds Gastrointestinal - other findings: ostomy Extremities: no cyanosis Psychiatric: normal affect, normal behavior Hosp A/P (1) Bowel obstruction Code(s): K56.609 - UNSP INTESTNL OBST, UNSP TO PARTIAL VERSUS COMPLETE OBST Status: Acute (2) UTI (urinary tract infection) Status: Acute (3) Hypothyroid Code(s): E03.9 - HYPOTHYROIDISM, UNSPECIFIED Status: Chronic - Plan Clinically improving. Follow urine culture and tailor antibiotics accordingly. Continue synthroid.
[2020-02-19] MEDS: Ferrous Sulfate 325 MG TAB PO SCH (19:48)
[2020-02-19] MEDS: Enoxaparin Sodium 40 MG/0.4 ML SYRINGE SC SCH (19:49)
[2020-02-19] MEDS: buPROPion HCl 100 MG TAB PO SCH (19:49)
[2020-02-20] MEDS: Sodium Chloride 0.9% 1,000 ML IV SCH (01:15)
[2020-02-20] MEDS ORDERED: cefTRIAXone\\ROCEPHIN 1 GM in Sodium Chloride 0.9% 100 ML IVPB SCH (04:00)
[2020-02-20] MEDS ORDERED: Levothyroxine Sodium 100 MCG TAB PO SCH (06:00)
[2020-02-20] MEDS: Ferrous Sulfate 325 MG TAB PO SCH (09:00)
[2020-02-20] MEDS: Famotidine/PF 20 mg/2ml Vial SLOW IVP SCH (09:00)
[2020-02-20] MEDS: buPROPion HCl 100 MG TAB PO SCH (09:00)
[2020-02-20] MEDS: Pantoprazole 40 MG VIAL IVP SCH (09:00)
[2020-02-20] MEDS ORDERED: Calcium Carbonate 600 MG + Vit D TAB PO SCH (09:00)
[2020-02-20] MEDS ORDERED: Nitrofurantoin Monohyd/M-Cryst 100 MG CAP PO SCH (09:00)
[2020-02-20 11:43] VITALS: BP 131/71; TEMP 97.6
[2020-02-20] MEDS ORDERED: Potassium Chloride 20 MEQ TAB PO SCH (13:00)
--- NOTE | 2020-02-21 03:15 | DIS ---
DATE OF ADMISSION: 02/18/2020 DATE OF DISCHARGE: 02/20/2020 PRIMARY CARE PROVIDER: Dr. Theresa Beatty. DISCHARGE DIAGNOSES: 1. Partial small bowel obstruction. 2. Urinary tract infection with Escherichia coli. 3. Hypokalemia. CONDITION: Condition of the patient on the day of discharge, stable. I assessed Ms. Lopez on the day of discharge. She denies any chest pain or shortness of breath. Vital signs are stable. S1 and S2 are heard, regular. Lungs are clear to auscultation bilaterally. CONSULTATIONS DURING THIS HOSPITALIZATION: General Surgery, Dr. Ariel Griffin. DISCHARGE MEDICATIONS: She has been started on Macrobid 100 mg 2 times a day for 1 week. Otherwise, no change was made to her pre-admission home medications. HOSPITAL COURSE: Ms. Lopez is a pleasant 79-year-old lady who was admitted to [facility] on February 18, 2020, for a partial small bowel obstruction. She was seen by General Surgery Service. She was managed conservatively. She initially had NG tube placed to suction. She had a Gastrografin small bowel series on February 19, 2020, which did not show any evidence of high-grade obstruction. She was started on diet and tolerated it well. She was also found to have urinary tract infection. Urine culture grew Escherichia coli that was resistant to ampicillin, cefepime, ceftazidime, ceftriaxone, intermediate sensitivity to ciprofloxacin and levofloxacin and sensitive to amikacin, ampicillin/sulbactam, cefoxitin, gentamicin, meropenem, nitrofurantoin, Zosyn, tobramycin, and Bactrim. She is being transitioned to Macrobid prior to discharge. Many thanks for allowing me to participate in your patient's care. Please feel free to contact me with any questions or concerns. POST-ACUTE CARE FOLLOWUP: With primary care provider in 3 days. DIET: Heart healthy. ACTIVITY: No restrictions. DISCHARGE DESTINATION: Home. TIME SPENT: Total amount of time spent coordinating this discharge, 32 minutes. Job ID: [id number]
== END 2020-02-20 15:55 | disposition home or self-care (01) | DRG 389 ==
LOC: ERS 22:15 → SURG B 02-18 00:31
PROVIDERS: ADMIT Internal Medicine; ATTEND Internal Medicine
DX: K56.600 Partial intestinal obstruction, unspecified as to cause (principal); N39.0 Urinary tract infection, site not specified; Z68.41 Body mass index [BMI] 40.0-44.9, adult; B96.20 Unspecified Escherichia coli [E. coli] as the cause of diseases classified elsewhere; E03.9 Hypothyroidism, unspecified; J45.909 Unspecified asthma, uncomplicated; E78.5 Hyperlipidemia, unspecified; E78.00 Pure hypercholesterolemia, unspecified; I10 Essential (primary) hypertension; M81.0 Age-related osteoporosis without current pathological fracture; N32.81 Overactive bladder; R32 Unspecified urinary incontinence; M19.90 Unspecified osteoarthritis, unspecified site; F41.9 Anxiety disorder, unspecified; F32.9 Major depressive disorder, single episode, unspecified; E66.01 Morbid (severe) obesity due to excess calories; K43.9 Ventral hernia without obstruction or gangrene; M06.9 Rheumatoid arthritis, unspecified; Z98.84 Bariatric surgery status
CPT/HCPCS: 36415; 74018; 74250; 80048; 80053; 83735; 84100; 85025; 85610; 85730; 87077; 87086; 87186; 96361; 96374; 96375; C9113; J0696; J1650; J1885; J2270; J2405; J3490; Q9963; S0028

== ENCOUNTER 2020-05-30 06:12 | Inpatient (IN) | payer MEDICARE, OTHER ==
[2020-05-30 07:12] LABS: #Lymphocytes 0.6 thou/uL (1.20-3.40); #Neutrophils 5.3 thou/uL (1.40-6.50); %Eosinophils 0.2 % (0.0-10.0); %Lymphocytes 8.8 % (21.0-51.0); %Monocytes 14.4 % (0.0-10.0); %Neutrophils 76.6 % (42.0-75.0); Mean Corpuscular HGB CONC 31.5 g/dL (32.0-36.0); Mean Corpuscular Hemoglobin 28.2 pg (27.0-31.0); Mean Corpuscular Volume 89.6 fL (78.0-98.0); Mean Platelet Volume 7.5 fL (7.4-10.4); Platelet Count 224 thou/uL (130-400); RBC Distribution Width 14.8 % (11.5-14.5); White Blood Cell (WBC) Count 6.9 thou/uL (4.8-10.8)
[2020-05-30 07:34] LABS: ALT (SGPT) 11 U/L (8-55); AST (SGOT) 13 U/L (5-34); Albumin 3.4 g/dL (3.4-4.8); Alkaline Phosphatase 82 U/L (40-110); Anion Gap 14 mmol/L (10-20); BUN (Urea Nitrogen) 12 mg/dL (9.8-20.1); Bilirubin, Total 1.2 mg/dL (0.2-1.2); Calc. Creatinine Clearance 0 mL/min (70-130); Calcium 8.8 mg/dL (7.8-10.44); Carbon Dioxide 24 mmol/L (23-31); Chloride 100 mmol/L (98-107); Estimated GFR-MDRD 83; Globulin 3.8 g/dL (2.4-3.5); Glucose 117 mg/dL (83-110); Lipase 39 U/L (8-78); Potassium 3.4 mmol/L (3.5-5.1); Protein, Total 7.2 g/dL (6.0-8.3); Sodium 135 mmol/L (136-145)
[2020-05-30] MEDS ORDERED: Ondansetron PF 4 MG/2 ML Vial ONE (07:47)
[2020-05-30] MEDS ORDERED: Morphine 4 MG/ML VIAL ONE (07:47)
[2020-05-30 08:56] LABS: Bacteria/HPF 3+ HPF (None Seen); Bilirubin Negative (Negative); Blood, Urine Trace (Negative); Clarity Turbid (Clear); Glucose, Urine (Dipstick) Normal (Negative); Ketone, Urine 20 mg/dL (Negative); Leukocyte 500 Leu/uL (Negative); Nitrite 2+ (Negative); Protein, Urine (Dipstick) 50 mg/dL (Neg-Trace); Urobilinogen Normal mg/dL (Less than 2); WBC/HPF Greater than 50 HPF (0-3); pH, Urine 5.5 (5.0-9.0)
[2020-05-30] MEDS ORDERED: cefTRIAXone\\ROCEPHIN 2 GM VIAL ONE (09:34)
[2020-05-30] MEDS ORDERED: Iopamidol-370 76% 500 ML 1 ML ONE (10:16)
--- NOTE | 2020-05-30 10:24 | CT ---
ABDOMEN AND PELVIC CT SCAN WITH IV CONTRAST: HISTORY: Large right abdominal wall hernia. Changes in the output of her colostomy bag with decreased output, nausea, ileostomy. COMPARISON: 02/17/2020. FINDINGS: The lung bases are clear. Status post cholecystectomy with mild dilatation of the common duct and in trahepatic ducts. Postoperative gastric bypass changes. Small hiatal hernia. Scattered borderline- sized lymph nodes in the gastrohepatic ligament region and peripancreatic region. Pancreas region ap pears unremarkable as does the spleen and adrenal glands. No evidence for acute obstruction, alth ough a dense contrast media within the renal collecting systems does not allow evaluation for nonobst ructing renal calculi. Large right anterolateral abdominal wall hernia is again noted. There are mu ltiple loops of large and small bowel within this area of herniation. There are some air and fluid l evels within large and small bowel. There appears to be some fairly marked wall thickening of some o f these loops of bowel which has definitely developed since the prior study. This is nonspecific but raises concern for the possibility of infection or inflammation. No extraluminal gas. There is violette e loculated fluid within this large hernia. Extensive postsurgical anastomotic changes within these bowel loops. No significant free intraperitoneal fluid within the remainder of the abdomen and pelvi s. Scattered colonic diverticulosis without acute diverticulitis. 3.5 cm diameter solid-appearing m ass off of the left side of the uterine fundus, evidence for a uterine fibroid. There is a left-side d ostomy site. IMPRESSION: Very large anterior right lateral abdominal wall hernia containing numerous loops of large and small bowel with extensive postsurgical changes with some air and fluid within these bowel loops and fairly marked wall thickening of multiple bowel loops in this area. The amount of dilatation within the byron wel loops is less than on prior studies where there was evidence for significant obstruction; however , the bowel wall thickening is new from the prior studies and is concerning for the possibility of in flammation, infection, or less likely neoplasm and/or ischemia. No extraluminal gas or free intraper itoneal air. A followup nonemergent small bowel study might be considered for further assessment in this regard. POS: OFF
--- NOTE | 2020-05-30 10:39 | PDOC.HHP ---
Hospitalist HPI - History of Present Illness Abdominal pain History of Present Illness: PCP: Dr. Beatty The patient is an 80-year-old female with a past medical history significant for multiple abdominal surgeries, including but not limited to gastric bypass, colectomy, multiple hernias with an ileostomy, short gut syndrome that presents to the emergency department via personal vehicle for the above complaint. The patient reports developing right-sided abdominal pain for the past 4 days, located to her right abdomen, described as cramping, quotes that it feels like "gas pain", intermittent, exacerbated with bending at the waist. She reports that the pain becomes sharp with such movement. She reports some associated nausea, decreased oral intake and changes in the color and consistency of her stool in her ileostomy bag. Today, her ileostomy output is consistent with typical color and consistency. She denies vomiting, hematochezia. She denies any fever or chills. She denies any recent trauma to her abdomen. She has trialed protein drinks, prune juice with some improvement of symptoms. She denies chest pain, heart palpitations, shortness of breath. She denies any urinary symptomatology. ED Course: VITAL SIGNS [place] May 30, 2020 06:13 JASON Brasher, Criss BP: 153/74, Pulse: 97, Resp: 18, Temp: 98.0 (Oral), Pain: 8, O2 sat: 99 on (Room Air), Time: 05/30/2020 06:13. Medication ministration: cefTRIAXone injection 2 g IV Piggy Back Acknowledged 09:28 05/30/2020 Normal Saline 1 L IV Fluid Infusion Given 08:07 05/30/2020 Zofran intravenous 4 mg IV Push Given 08:06 05/30/2020 morphine (PF) injection 4 mg IV Push Given 08:06 05/30/2020 Hospitalist ROS - Review of Systems Constitutional: denies: fever, chills Cardiovascular: denies: chest pain, palpitations Gastrointestinal: reports: nausea, abdominal pain. denies: vomiting, hematochezia Genitourinary: denies: dysuria, hematuria Neurological: denies: weakness, change in speech, confusion All other systems reviewed; all pertinent +/- noted in HPI/Subj - Medication Medications: buPROPion HCl [place] May 30, 2020 06:36 JASON Bartlett, Dulce TABLET, EXTENDED RELEASE : Strength - 100 mg : ORAL Patient Dose: 1 tab(s) Oral 3 times a day. levothyroxine oral SunMay 30, 2020 06:36 JASON Bartlett Alicia TABLET : Strength - 200 mcg : ORAL Patient Dose: 1 tab(s) Oral once a day. cetirizine SunMay 30, 2020 06:36 JASNO Bartlett Alicia TABLET : Strength - 10 mg : ORAL Patient Dose: 10 mg Oral 2 times a day. Systane (PF) SunMay 30, 2020 06:36 JASON Bartlett Alicia dropperette : Strength - 0.3 %-0.4 % : OPHTHALMIC (EYE) Patient Dose: 1 gtt Ears BOTH.1GTT 24X/DAY. Co Q-10 SunMay 30, 2020 06:36 JASON Bartlett Alicia capsule : Strength - 100 mg : ORAL Patient Dose: 500 mg Oral once a day. PreserVision AREDS-2 SunMay 30, 2020 06:36 JASON Bartlett Alicia capsule : Strength - 250 mg-200 unit-40 mg-1 mg-5 mg-1 mg : ORAL Patient Dose: Unknown. Calcium + D SunMay 30, 2020 06:36 JASON Bartlett Alicia tablet : Strength - 600 mg calcium (1,500 mg)-200 unit : ORAL Patient Dose: 2 tab(s) Oral once a day. clonazePAM SunMay 30, 2020 06:36 JASON Bartltet Alicia tablet,disintegrating : Strength - 0.5 mg : ORAL Patient Dose: 1 tab(s) Oral once a day. cimetidine SunMay 30, 2020 06:37 JASON Bartlett Alicia tablet : Strength - 400 mg : ORAL Patient Dose: once a day (at bedtime). Miralax SunMay 30, 2020 06:52 JASON Bartlett Alicia powder : Strength - 17 gram/dose : ORAL Patient Dose: Unknown. hydrocortisone acetate topical SunMay 30, 2020 06:53 JASON Bartlett Alicia cream with perineal applicator : Strength - 2.5 % : TOPICAL Patient Dose: Unknown. Vitamin D3 SunMay 30, 2020 06:53 JASON Bartlett Alicia capsule : Strength - 2,000 unit : ORAL Patient Dose: Unknown. ferrous sulfate SunMay 30, 2020 06:54 JASON Bartlett Alicia elixir : Strength - 220 mg (44 mg iron)/5 mL : ORAL Patient Dose: Unknown. traMADol SunMay 30, 2020 06:54 JASON Bartlett Alicia tablet : Strength - 50 mg : ORAL Patient Dose: Unknown. albuterol SunMay 30, 2020 06:54 JASON Bartlett Alicia aerosol : Strength - 90 mcg : INHALATION Patient Dose: Unknown. [place] 3 capsule SunMay 30, 2020 06:55 JASON Bartlett Alicia capsule : ORAL Patient Dose: Unknown. Beano SunMay 30, 2020 06:55 JASON Bartlett Alicia tablet : ORAL Patient Dose: Unknown. Gas Relief Ultra Strength SunMay 30, 2020 06:55 JASON Bartlett Alicia capsule : Strength - 180 mg : ORAL Patient Dose: Unknown.after meals and at bedtime. B12 SunMay 30, 2020 06:56 JASON Bartlett Alicia lozenge : Strength - 5,000 mcg-100 mcg : SUBLINGUAL Patient Dose: Unknown. turmeric SunMay 30, 2020 06:56 JASON Bartlett Alicia capsule : Strength - 400 mg : ORAL Patient Dose: Unknown. Allergies: NKDA Hospitalist History - Past Medical History Source: patient, RN notes reviewed Cardiac: reports: HTN, Hyperlipidemia Gastrointestinal: reports: GERD Heme/Onc: reports: Anemia NOS Psych: reports: Anxiety, Depression Musculoskeletal: reports: Osteoarthritis Endocrine: reports: Hypothyroidism - Past Surgical History Past Surgical History: reports: Appendectomy, Cholecystectomy, Other (Ileostomy, gastric bypass, tummy tuck, hernia repairs, colecomy) - Social History Smoking Status: Never smoker Alcohol: reports: Rare Drugs: reports: none Living Situation: Alone Occupation: Retired Activity level: independent ambulation - Exam General Appearance: NAD, awake alert Eye: anicteric sclera ENT: normocephalic atraumatic Neck: supple, symmetric, no JVD Heart: no gallops, no rubs, normal peripheral pulses, III/IV Respiratory: CTAB, no wheezes, no rales, no ronchi, normal chest expansion, no tachypnea Gastrointestinal: soft, non-tender, normal bowel sounds, no guarding, no rigidity Gastrointestinal - other findings: Left-sided ileostomy, large right abdominal hernia, nTTP Extremities: no cyanosis, no edema Skin: no rashes Neurological: normal sensation to touch, no weakness, no focal deficits, no new deficit Musculoskeletal: normal tone, normal strength Psychiatric: normal affect, normal behavior, A&O x 3 Hospitalist Results - Labs Result Diagrams: 05/30/20 06:50 05/30/20 06:50 Lab results: WBC 6.9 thou/uL (4.8-10.8) 05/30/20 06:50 Hgb 11.0 g/dL (12.0-16.0) L 05/30/20 06:50 Hct 34.9 % (36.0-47.0) L 05/30/20 06:50 MCV 89.6 fL (78.0-98.0) 05/30/20 06:50 Plt Count 224 thou/uL (130-400) 05/30/20 06:50 Neutrophils % 76.6 % (42.0-75.0) H 05/30/20 06:50 Sodium 135 mmol/L (136-145) L 05/30/20 06:50 Potassium 3.4 mmol/L (3.5-5.1) L 05/30/20 06:50 Chloride 100 mmol/L (98-107) 05/30/20 06:50 Carbon Dioxide 24 mmol/L (23-31) 05/30/20 06:50 BUN 12 mg/dL (9.8-20.1) 05/30/20 06:50 Creatinine 0.68 mg/dL (0.6-1.1) 05/30/20 06:50 Glucose 117 mg/dL (83-110) H 05/30/20 06:50 Lactic Acid 0.8 mmol/L (0.5-2.2) 05/30/20 07:55 Calcium 8.8 mg/dL (7.8-10.44) 05/30/20 06:50 Total Bilirubin 1.2 mg/dL (0.2-1.2) 05/30/20 06:50 AST 13 U/L (5-34) 05/30/20 06:50 ALT 11 U/L (8-55) 05/30/20 06:50 Alkaline Phosphatase 82 U/L (40-110) 05/30/20 06:50 Serum Total Protein 7.2 g/dL (6.0-8.3) 05/30/20 06:50 Albumin 3.4 g/dL (3.4-4.8) 05/30/20 06:50 Lipase 39 U/L (8-78) 05/30/20 06:50 Urine Ketones 20 mg/dL (Negative) A 05/30/20 06:17 Urine Blood Trace (Negative) A 05/30/20 06:17 Urine Nitrite 2+ (Negative) A 05/30/20 06:17 Ur Leukocyte Esterase 500 Lito/uL (Negative) A 05/30/20 06:17 Urine RBC 4-6 HPF (0-3) A 05/30/20 06:17 Urine WBC Greater than 50 HPF (0-3) A 05/30/20 06:17 Ur Squamous Epith Cells 4-6 HPF (0-3) A 05/30/20 06:17 Urine Bacteria 3+ HPF (None Seen) A 05/30/20 06:17 - EKG Interpretation EK lead EKG interpreted by Emergency Department Physician at time of study, 12 lead EKG shows normal sinus rhythm, Rate (beats per minute): 72, Conduction normal, ST segments normal, T waves normal, [place] normal, Clinical impression: Normal EKG, no stemi. - Radiology Interpretation CT scan - pelvis Status: report reviewed by me Additional Comment: Abdomen/pelvis CT scan, with contrast shows, Other findings: 02/17/2020 comparison study. Lung bases clear. sp cholecystectomy, mild dilation of the CBD and common hepatic duct. Post operative gastric bypass. small hiatal hernia. scattered borderline lymphnodes non specific. Pancreas unremarkable. No bowel obstruction seen. Large right anterior lateral abdominal wall hernia noted. multiple loops of large and small bowel within this area of herniation, air and fluid levels within large and small bowel. Appear marked wall thickening of loops of bowel which has developed in prior study. concern for infection or inflammation. No extraluminal gas. Noted loculated fluid within the large hernia. extension post surgical anastomotic changes within the bowel loops. no significant free intraperitoneal fluid in the abdomen. No diverticulitis. 3.5 cm uterine mass evidence of uterine fibroid. left sided ostomy site. Hospitalist H&P A/P - Problem (1) Abdominal hernia without obstruction or gangrene Code(s): K46.9 - UNSPECIFIED ABDOMINAL HERNIA WITHOUT OBSTRUCTION OR GANGRENE Status: Acute (2) UTI (urinary tract infection) Status: Acute (3) Hypothyroid Code(s): E03.9 - HYPOTHYROIDISM, UNSPECIFIED Status: Chronic (4) PETTY (iron deficiency anemia) Code(s): D50.9 - IRON DEFICIENCY ANEMIA, UNSPECIFIED Status: Chronic (5) Anxiety and depression Code(s): F41.9 - ANXIETY DISORDER, UNSPECIFIED; F32.9 - MAJOR DEPRESSIVE DISORDER, SINGLE EPISODE, UNSPECIFIED Status: Chronic - Plan Plan: 80/F with PMH multiple abdominal surgeries presents for abdominal pain. Admit to surgical floor, inpatient status. Expected length of stay greater than 2 midnights. #Abdominal hernia without obstruction or gangrene Presented mild tachycardia, normal BP, RR, afebrile. CT abdomen showed large right anterior abdominal wall hernia appeared market wall thickening of loops of bowel, concern for infection versus inflammation. Mild dilatation CBD and CHD. Lactic acid 0.8, WBC 6.9. EKG normal sinus rhythm ER doc consulted general surgery, will follow in a.m. N.p.o. N.p.o. with meds. IV fluids, analgesia, antiemetics. Monitor electrolytes. #UTI UA +3+ bacteria, nitrites, WBCs, leuks WBC 6.9, lactic acid 0.8 Continue Rocephin IVPB Urine culture pending #Hypothyroid Restart home levothyroxine when reconciled by nursing. Check TSH. #PETTY Hemoglobin 11, hematocrit 34.9, RBC 3.9 Appears stable We will hold home iron supplementation for now. #Anxiety depression Denies SI/HI Takes Wellbutrin and Klonopin at home We will restart home medications when reconciled by nursing Lovenox for DVT prophylaxis. Protonix for GI prophylaxis. Full code. Discussed case with Dr. Farnsworth.
[2020-05-30] MEDS ORDERED: Ondansetron ODT 4 MG TAB PO PRN (11:26)
[2020-05-30 13:09] VITALS: BMI 40.4
[2020-05-30] MEDS: Sodium Chloride 0.9% 1,000 ML IV SCH ×2 (13:35→22:30)
[2020-05-30] MEDS: Ondansetron PF 4 MG/2 ML Vial IVP PRN (13:36)
[2020-05-30] MEDS: Morphine 4 MG/ML VIAL SLOW IVP PRN (13:36)
[2020-05-30] MEDS ORDERED: Albuterol 200 PUFF (6.7GM INHALER) INH PRN (16:37)
--- NOTE | 2020-05-30 16:44 | PDOC.EVN ---
Event Note - Event Note Event Note: Chart reviewed. Patient seen. Discussed with SULY. Agree with assessment and plan of care as documented. Briefly, 80-year-old lady with a past medical history of multiple abdominal surgeries presenting with abdominal pain. Vital signs are stable. S1 and S2 are heard, regular. Lungs are clear to auscultation bilaterally. Abdomen is minimally tender, no guarding or rigidity. CT scan of the abdomen and pelvis showed a very large anterior right lateral abdominal wall hernia containing numerous loops of large and small bowel. The amount of dilatation of bowel loops is improved compared to prior studies. She does have bowel wall thickening, concerning for the possibility of inflammation. The bowel wall thickening is new from prior studies and is concerning for the possibility of inflammation, infection or less likely neoplasm and/or ischemia, according to radiologist. General surgical consult is pending. Patient has evidence of urinary tract infection. She has been started on ceftriaxone. Will add metronidazole to to cover intra-abdominal anaerobic infections.
[2020-05-30] MEDS: metroNIDAZOLE 500 MG in Premix Bag 1 BAG IVPB SCH (17:22)
[2020-05-30] MEDS: Acetaminophen 325 MG TAB PO PRN (18:44)
[2020-05-30] MEDS: Enoxaparin Sodium 40 MG/0.4 ML SYRINGE SC SCH (20:23)
[2020-05-30] MEDS: buPROPion HCl 100 MG TAB PO SCH (20:23)
[2020-05-31] MEDS: metroNIDAZOLE 500 MG in Premix Bag 1 BAG IVPB SCH ×3 (00:48→18:14)
[2020-05-31] MEDS: Cepastat Lozenges 1 LOZ PO PRN ×3 (00:55→18:16)
[2020-05-31] MEDS: Morphine 4 MG/ML VIAL SLOW IVP PRN ×3 (03:46→18:21)
[2020-05-31] MEDS: Levothyroxine Sodium 100 MCG TAB PO SCH (05:41)
[2020-05-31] MEDS: Acetaminophen 325 MG TAB PO PRN (06:14)
[2020-05-31 06:23] LABS: Hemoglobin 9.9 g/dL (12.0-16.0); Mean Corpuscular HGB CONC 30.4 g/dL (32.0-36.0); Mean Corpuscular Hemoglobin 27.5 pg (27.0-31.0); Mean Corpuscular Volume 90.7 fL (78.0-98.0); Mean Platelet Volume 7.5 fL (7.4-10.4); Platelet Count 201 thou/uL (130-400); RBC Distribution Width 14.8 % (11.5-14.5); Red Blood Cell (RBC) Count 3.58 mill/uL (4.20-5.40); White Blood Cell (WBC) Count 4.4 thou/uL (4.8-10.8)
[2020-05-31 06:40] LABS: Anion Gap 18 mmol/L (10-20); BUN (Urea Nitrogen) 8 mg/dL (9.8-20.1); Calc. Creatinine Clearance 109 mL/min (70-130); Calcium 7.9 mg/dL (7.8-10.44); Carbon Dioxide 20 mmol/L (23-31); Chloride 106 mmol/L (98-107); Estimated GFR-MDRD Greater than 90; Glucose 91 mg/dL (83-110); Magnesium 1.7 mg/dL (1.6-2.6); Potassium 3.3 mmol/L (3.5-5.1); Sodium 141 mmol/L (136-145)
[2020-05-31 07:23] LABS: Band 27 % (5-11); Eosinophils 1 % (0-10); Lymphocytes 12 % (21-51); MDiff Complete? YES; Monocytes 18 % (0-10); Neutrophil 42 % (42-75); Platelet Morphology Comment Appears Adequate; Polychromasia SLIGHT = 2-3 cells (100X) (0-2/hpf)
[2020-05-31] MEDS: buPROPion HCl 100 MG TAB PO SCH ×3 (08:14→20:24)
[2020-05-31] MEDS: Sodium Chloride 0.9% 1,000 ML IV SCH ×3 (08:21→20:20)
[2020-05-31] MEDS ORDERED: Loratadine 10 MG TAB PO SCH (09:00)
[2020-05-31] MEDS ORDERED: clonazePAM 0.5 MG TAB PO SCH (09:00)
[2020-05-31] MEDS: Ondansetron PF 4 MG/2 ML Vial IVP PRN ×2 (09:59→18:21)
[2020-05-31] MEDS: cefTRIAXone\\ROCEPHIN 1 GM in Sodium Chloride 0.9% 100 ML IVPB SCH (10:48)
[2020-05-31] MEDS ORDERED: GASTROGRAFIN 30 ML BOT ONE (10:50)
[2020-05-31 13:26] LABS: SARS-CoV-2 MS2 Positive; SARS-CoV-2 N Gene Negative; SARS-CoV-2 S Gene Negative; SARS-CoV-2 by NAA Not Detected (NotDetected); SARS-CoV-2 orf1ab Negative
--- NOTE | 2020-05-31 15:05 | PDOC.HOSPP ---
- Subjective Encounter Date: 05/31/20 Encounter Time: 13:00 Subjective: Patient seen for follow-up regarding urinary tract infection. She reports abdominal pain is better. She denies any nausea or vomiting. - Objective Vital Signs & Weight: Vital Signs (12 hours) Temp Pulse Resp BP Pulse Ox 05/31/20 11:45 97.7 F 74 18 119/59 L 98 05/31/20 08:00 95 05/31/20 07:39 98.1 F 84 18 102/51 L 94 L 05/31/20 04:00 98.8 F 75 16 122/64 95 Weight Admit Weight 207 lb 1.6 oz Weight 207 lb 1.6 oz I&O: 05/30/20 05/31/20 06/01/20 06:59 06:59 06:59 Intake Total 60 1475 Balance 60 1475 Result Diagrams: 05/31/20 05:52 05/31/20 05:52 Additional Labs: I reviewed patient's labs and MAR Hospitalist ROS - Review of Systems Gastrointestinal: reports: abdominal pain. denies: nausea, vomiting, diarrhea, constipation, melena, hematochezia Genitourinary: reports: frequency. denies: dysuria, incontinence, hematuria, retention - Medication Medications: Active Medications Generic Name Dose Route Start Last Admin Trade Name Freq PRN Reason Stop Dose Admin Acetaminophen 650 mg 05/30/20 11:26 05/31/20 06:14 Acetaminophen 325 Mg Tab PO 650 mg Q4H PRN Administration Headache/Fever/Mild Pain (1-3) Bupropion HCl 100 mg 05/30/20 21:00 05/31/20 14:17 Bupropion Hcl 100 Mg Tab PO 100 mg TID VICTOR M Administration Clonazepam 0.5 mg 05/31/20 09:00 05/31/20 08:13 Clonazepam 0.5 Mg Tab PO Not Given DAILY VICTOR M Enoxaparin Sodium 40 mg 05/30/20 21:00 05/30/20 20:23 Enoxaparin Sodium 40 Mg/0.4 Ml Syringe SC 40 mg 2100 VICTOR M Administration Sodium Chloride 1,000 mls @ 125 mls/hr 05/30/20 11:30 05/31/20 11:30 Normal Saline 0.9% IV Not Given .Q8H VICTOR M Ceftriaxone Sodium 1 gm/ 100 mls @ 200 mls/hr 05/31/20 10:00 05/31/20 10:48 Sodium Chloride IVPB 100 mls Q24HR VICTOR M Administration Metronidazole 500 mg/ Device 100 mls @ 100 mls/hr 05/30/20 17:00 05/31/20 08:14 IVPB 100 mls 0100,0900,1700 VICTOR M Administration Levothyroxine Sodium 200 mcg 05/31/20 06:00 05/31/20 05:41 Levothyroxine Sodium 100 Mcg Tab PO 200 mcg 0600 VICTOR M Administration Loratadine 10 mg 05/31/20 09:00 05/31/20 08:13 Loratadine 10 Mg Tab PO 10 mg DAILY VICTOR M Administration Morphine Sulfate 4 mg 05/30/20 11:37 05/31/20 09:59 Morphine 4 Mg/Ml Vial SLOW IVP 4 mg Q3H PRN Administration Moderate to Severe Pain (6-10) Ondansetron HCl 4 mg 05/30/20 11:26 05/31/20 09:59 Ondansetron Pf 4 Mg/2 Ml Vial IVP 4 mg Q6H PRN Administration Nausea/Vomiting Sodium Chloride 10 ml 05/30/20 11:26 05/31/20 09:59 Flush - Normal Saline 10 Ml Syringe IVF 10 ml PRN PRN Administration Saline Flush Throat Lozenges 1 norah 05/30/20 18:54 05/31/20 07:07 Cepastat Lozenges 1 Norah PO 1 norah PRN PRN Administration SORE THROAT - Exam General - other findings: Morbid obesity Eye: anicteric sclera ENT: moist mucosa Neck: supple Heart: RRR Respiratory: CTAB, no rales Gastrointestinal: soft, non-tender, normal bowel sounds Gastrointestinal - other findings: Ostomy Extremities: no cyanosis Skin: no rashes Psychiatric: normal affect, normal behavior Hosp A/P (1) UTI (urinary tract infection) Status: Acute (2) Colitis Code(s): K52.9 - NONINFECTIVE GASTROENTERITIS AND COLITIS, UNSPECIFIED Status: Acute (3) Abdominal pain Code(s): R10.9 - UNSPECIFIED ABDOMINAL PAIN Status: Acute (4) Abdominal hernia without obstruction or gangrene Code(s): K46.9 - UNSPECIFIED ABDOMINAL HERNIA WITHOUT OBSTRUCTION OR GANGRENE Status: Chronic (5) Hypothyroid Code(s): E03.9 - HYPOTHYROIDISM, UNSPECIFIED Status: Chronic (6) Depression Code(s): F32.9 - MAJOR DEPRESSIVE DISORDER, SINGLE EPISODE, UNSPECIFIED Status: Chronic (7) Morbid obesity with BMI of 40.0-44.9, adult Code(s): E66.01 - MORBID (SEVERE) OBESITY DUE TO EXCESS CALORIES; Z68.41 - BODY MASS INDEX (BMI) 40.0-44.9, ADULT Status: Chronic - Plan Continue ceftriaxone and Flagyl. Preliminary urine culture growing gram-negative rods, await identification and sensitivities. General surgery service has been consulted. Depression mild, stable. TSH is low but free T4 is normal. Recheck thyroid profile in 6 weeks.
--- NOTE | 2020-05-31 16:54 | PDOC.FMACP ---
Advance Care Planning - Problem (1) Colitis Status: Acute Code(s): K52.9 - NONINFECTIVE GASTROENTERITIS AND COLITIS, UNSPECIFIED (2) Abdominal hernia without obstruction or gangrene Status: Chronic Code(s): K46.9 - UNSPECIFIED ABDOMINAL HERNIA WITHOUT OBSTRUCTION OR GANGRENE (3) Depression Status: Chronic Code(s): F32.9 - MAJOR DEPRESSIVE DISORDER, SINGLE EPISODE, UNSPECIFIED (4) Palliative care encounter Status: Acute Code(s): Z51.5 - ENCOUNTER FOR PALLIATIVE CARE - Note Participants: patient, palliative care Summary: Reviewed Advanced Care Planning, opportunity to decline. The diagnosis, prognosis and goals of care were discussed. Appropriate forms and documentation to accomplish the goals of care were discussed. All questions were answered. Confirmed Directive to Physician on chart. Confirmed her daughters for surrogate decision maker. The Palliative Care Team will be engaged to assist with completion of any outstanding forms that are needed. Time Spent (mins): 215
[2020-05-31] MEDS ORDERED: Polyethylene Glycol OPTH DROP 15 ML BOT EA EYE PRN (19:49)
[2020-05-31] MEDS ORDERED: Simethicone Chewable 80 MG TAB PO PRN (19:50)
[2020-05-31] MEDS ORDERED: traMADol HCl 50 MG TAB PO PRN (19:55)
--- NOTE | 2020-05-31 20:13 | CON ---
DATE OF CONSULTATION: HISTORY OF PRESENT ILLNESS: Mila Lopez is an 80-year-old female, with a complicated past surgical history complicated by laparoscopic gastric bypass, where she had problems postoperatively resulting in an ischemic bowel requiring extensive resection along with a right hemicolectomy, ileostomy left lower quadrant, and a long Too's pouch. Most of these operations were done in [place] and [place]. Patient has a very large ventral hernia, has lost much of her abdominal wall due to infectious complications from probably an internal hernia resulting from her gastric bypass, probably due to delay in diagnosis. Patient has been hospitalized several times in our facility for partial bowel obstructions and abdominal pain. I initially saw her on February 14, 2019, and again on March 17, 2019, for similar problems. She was initially hospitalized in November 2018, seen by Dr. Porras in consultation. Again, hospitalized on September 27, 2019, seen by Dr. Khanna and again on February 18, 2020, seen by Dr. Griffin. Today, her problems have been treated nonsurgically. She has had several small-bowel follow-through 02/15/2019, 03/18/2019, 09/28/2019, and 02/19/2020, all demonstrating rapid transit of contrast and opacifies and empties into what is described as a left lower quadrant colostomy. Patient states that on this occasion last week, she is having decreased ostomy output and they are in change in character. She took MiraLAX and prune juice with some relief, but was still having pain and presented to the emergency room for evaluation. Patient underwent a CAT scan of the abdomen and pelvis on 05/30/2020 with IV contrast without oral contrast, noted a large right abdominal wall hernia changes. She had postoperative changes consistent with gastric bypass. She has small hiatal hernia. Pancreas appeared to be normal. Noted to be some air-fluid levels within the large and small bowel, some thickening of the bowel wall, which may be new, postsurgical anastomotic changes, anastomotic small bowel loops. No intraperitoneal fluid. Scattered colonic diverticulosis, left-sided ostomy bag. Followup small-bowel follow-through was recommended. ALLERGIES: NONE. SOCIAL HISTORY: Tobacco, none. Alcohol, none. MEDICATIONS: At home: 1. Calcium carbonate. 2. Albuterol inhalers. 3. Levothyroxine 200 mcg a day. 4. Cetirizine for allergies. 5. MiraLAX daily. 6. CoQ10. 7. Simethicone gas relief. 8. Vitamin A. 9. Vitamin C. 10. Vitamin E. 11. Vitamin B1 complex. 12. Vitamin B12. 13. Clonazepam p.r.n. 14. Tramadol p.r.n. PAST SURGICAL HISTORY: Twenty-five years ago, Stcaie-en-Y gastric bypass in [place]. Postoperatively having some sort of postop complications with an internal hernia requiring small-bowel resection. She developed multiple incisional hernias repaired without mesh. She underwent abdominoplasty using mesh. She developed mesh erosions into the bowel. She developed fistulas and brought up colostomy and ileostomy in 2016. She had incarcerated ventral hernia that occurred in [place], repaired in August. 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 She was on vacation in [place], [place] when she developed stool fistula from her abdominal wall, taken back to the operating room, had a necrotic anterior abdominal wall that was resected during a right hemicolectomy, ostomy and she describes an ileostomy on the left side of her abdomen. She has had problems with sinus tracts thought to be communication with her mesh and had intermittent exposed mesh, debrided at bedside. She has undergone hyperbaric treatment in the past in [facility] for this chronic erosions. Patient has had an appendectomy and cholecystectomy. Patient ambulates independently. She is retired. She lives alone. PAST HISTORY: Hypertension, hyperlipidemia, GERD, anemia, anxiety, depression, osteoarthritis, and hypothyroidism. PHYSICAL EXAMINATION: VITAL SIGNS: Height 5 feet tall, 207 pounds, 40 BMI. 97.7, 74, 18, and 119/59. HEAD, EARS, EYES, NOSE, AND THROAT: Unremarkable. LUNGS: Clear to auscultation. CARDIAC: Regular rate and rhythm, without murmur or gallop. ABDOMEN: Soft. Colostomy left lower quadrant, large midline and right abdominal hernia defect. EXTREMITIES: Unremarkable. LABORATORIES: Unremarkable. White count 4, hemoglobin 9.9. Basic metabolic profile normal. Potassium 3.3, sodium 141, BUN and creatinine are normal. Magnesium, calcium, and phosphorus normal. ASSESSMENT/PLAN: 1. Recurrent abdominal complaints and partial bowel obstruction, probably secondary to adhesions. She does have some ostomy output. There is some question raised from her CAT scan. These are probably nonspecific. Her hernia is large. It is unlikely that this is the problem. More likely, she is having intermittent problems with scar tissue from multiple prior operations. She is seen in GI, [facility] in followup in the interim. I asked, but she does not recall who. At this point, I would recommend small bowel follow-through. Her abdominal wall hernias and abdominal wall are complicated. I would not attempt any counter repair locally. I will send her to a hernia specialist in [place] if any surgeries are undertaken. I would be reluctant to tackle this. 2. Bariatric surgery, status post history of gastric bypass. She continues to take her vitamins compliantly. Job ID: [id number]
--- NOTE | 2020-05-31 20:18 | RAD ---
SMALL BOWEL FOLLOW THROUGH: Date: 05-31-2020 PROVIDED CLINICAL HISTORY: Small bowel obstruction FINDINGS: Comparison is made with the CT examination performed earlier same date. Contrast material administered orally demonstrates opacification of multiple dilated loops of small b owel on the 15, 30, 45 and 1 hour images. At the 2 hour dannielle there is somewhat less conspicuous bowel distention with opacification of more distal small bowel including some contrast material seen going into the patient's ileostomy bag. The 3 hour image demonstrates further evacuation of contrast mater ial though the patient's ileostomy bag is not included on this image it was reportedly full at the ti me of imaging. IMPRESSION: No evidence for complete small bowel obstruction. POS: BEBO
[2020-05-31] MEDS: Pantoprazole 40 MG VIAL IVP SCH (20:28)
[2020-05-31] MEDS: Enoxaparin Sodium 40 MG/0.4 ML SYRINGE SC SCH (20:28)
[2020-05-31] MEDS: Loratadine 10 MG TAB PO SCH (21:07)
[2020-06-01] MEDS: metroNIDAZOLE 500 MG in Premix Bag 1 BAG IVPB SCH ×3 (00:33→16:37)
[2020-06-01] MEDS: Sodium Chloride 0.9% 1,000 ML IV SCH (03:27)
[2020-06-01] MEDS: Levothyroxine Sodium 100 MCG TAB PO SCH (05:30)
--- NOTE | 2020-06-01 08:33 | RAD ---
Exam: Chest one view Abdomen 2 views HISTORY: Follow-up small bowel obstruction COMPARISON: 03/18/2019 FINDINGS: Chest 1 view: Atherosclerosis aorta. Normal cardiac silhouette. Pulmonary vessels and hilum are chuy l. Costophrenic angles are clear. No consolidation or mass. No pneumothorax or acute osseous abnormalities 2 views abdomen: Nonspecific bowel gas pattern. There are scattered fecal material in a nondistended, nondilated colon. There is a colostomy in the left upper quadrant. There is some fecal material in the rectum. There is no evidence of small bowel distention or dilatation. There are no differential air-fluid lev els. No pneumoperitoneum. Surgical clips in the right upper quadrant. Suture chain in the left and right hemiabdomen are noted. No acute osseous abnormalities IMPRESSION: 1. Atherosclerosis 2. Nonspecific bowel gas pattern.
[2020-06-01] MEDS: buPROPion HCl 100 MG TAB PO SCH ×3 (08:35→21:19)
[2020-06-01] MEDS: Fish Oil 1,000 MG CAP PO SCH (08:36)
[2020-06-01] MEDS: Calcium Carbonate 600 MG + Vit D TAB PO SCH (08:36)
[2020-06-01] MEDS: Vit A,C & E/Lutein/Minerals Tablet PO SCH (08:38)
[2020-06-01] MEDS: Stress 600 With Zinc 1 TAB PO SCH (08:39)
[2020-06-01] MEDS: Ubidecarenone 50 MG CAP PO SCH (08:42)
[2020-06-01] MEDS ORDERED: GLYCOTROL PO SCH (09:00)
[2020-06-01] MEDS ORDERED: Potassium Chloride 20 MEQ TAB PO SCH (09:15)
[2020-06-01] MEDS: cefTRIAXone\\ROCEPHIN 1 GM in Sodium Chloride 0.9% 100 ML IVPB SCH (09:52)
[2020-06-01] MEDS ORDERED: Potassium Chloride 40 MEQ in Premix Bag 1 BAG IVPB SCH (10:30)
[2020-06-01] MEDS ORDERED: Magnesium 2 GM/50 ML 2 GM in Premix Bag 1 BAG IVPB SCH (10:30)
[2020-06-01] MEDS ORDERED: Meropenem 1 GM in Sodium Chloride 0.9% 100 ML IVPB SCH (10:30)
--- NOTE | 2020-06-01 10:37 | PDOC.HOSPP ---
- Subjective Encounter Date: 06/01/20 Encounter Time: 10:35 Subjective: Patient seen and examined. No new complaints. No overnight events. Eating oral diet, reports some abdominal cramping when see first ingested breakfast. Currently no symptoms, denies abdominal pain, N/V. Ileostomy output is good, typical consistency and color. Denies urinary symptoms. Denies fever. - Objective Vital Signs & Weight: Vital Signs (12 hours) Temp Pulse Resp BP Pulse Ox 06/01/20 08:00 98.0 F 84 18 131/64 97 Weight Admit Weight 207 lb 1.6 oz Weight 207 lb 1.6 oz I&O: 05/31/20 06/01/20 06/02/20 06:59 06:59 06:59 Intake Total 60 6175 Balance 60 6175 Result Diagrams: 05/31/20 05:52 05/31/20 05:52 Hospitalist ROS - Review of Systems Constitutional: denies: fever, chills Cardiovascular: denies: chest pain, palpitations, edema Gastrointestinal: denies: nausea, vomiting, abdominal pain, melena, hematochezia Genitourinary: denies: dysuria, frequency, incontinence, hematuria All other systems reviewed; all pertinent +/- noted in HPI/Subj - Medication Medications: Active Medications Generic Name Dose Route Start Last Admin Trade Name Jose Aq PRN Reason Stop Dose Admin Acetaminophen 650 mg 05/30/20 11:26 05/31/20 06:14 Acetaminophen 325 Mg Tab PO 650 mg Q4H PRN Administration Headache/Fever/Mild Pain (1-3) Bupropion HCl 100 mg 05/30/20 21:00 06/01/20 08:35 Bupropion Hcl 100 Mg Tab PO 100 mg TID VICTOR M Administration Calcium/Vitamin D 1 tab 06/01/20 09:00 06/01/20 08:36 Calcium Carbonate 600 Mg + Vit D Tab PO 1 tab DAILY VICTOR M Administration Coenzyme Q10 500 mg 06/01/20 09:00 06/01/20 08:42 Ubidecarenone 50 Mg Cap PO 200 mg QAM VICTOR M Administration Enoxaparin Sodium 40 mg 05/30/20 21:00 05/31/20 20:28 Enoxaparin Sodium 40 Mg/0.4 Ml Syringe SC 40 mg 2100 VICTOR M Administration Fish Oil 1,000 mg 06/01/20 09:00 06/01/20 08:36 Fish Oil 1,000 Mg Cap PO 1,000 mg DAILY VICTOR M Administration Metronidazole 500 mg/ Device 100 mls @ 100 mls/hr 05/30/20 17:00 06/01/20 08:40 IVPB 100 mls 0100,0900,1700 VICTOR M Administration Levothyroxine Sodium 200 mcg 05/31/20 06:00 06/01/20 05:30 Levothyroxine Sodium 100 Mcg Tab PO 200 mcg 0600 VICTOR M Administration Loratadine 10 mg 05/31/20 21:00 05/31/20 21:07 Loratadine 10 Mg Tab PO 10 mg HS VICTOR M Administration Morphine Sulfate 4 mg 05/30/20 11:37 05/31/20 18:21 Morphine 4 Mg/Ml Vial SLOW IVP 4 mg Q3H PRN Administration Moderate to Severe Pain (6-10) Multivitamins/Minerals 2 tab 06/01/20 09:00 06/01/20 08:38 Vit A,C & E/Lutein/Minerals Tablet PO 2 tab DAILY VICTOR M Administration Multivitamins/Zinc 1 tab 06/01/20 09:00 06/01/20 08:39 Stress 600 With Zinc 1 Tab PO 1 tab QAM VICTOR M Administration Ondansetron HCl 4 mg 05/30/20 11:26 05/31/20 18:21 Ondansetron Pf 4 Mg/2 Ml Vial IVP 4 mg Q6H PRN Administration Nausea/Vomiting Pantoprazole Sodium 40 mg 05/31/20 21:00 05/31/20 20:28 Pantoprazole 40 Mg Vial IVP 40 mg 2100 VICTOR M Administration Potassium Chloride 40 meq 06/01/20 09:15 06/01/20 09:32 Potassium Chloride 20 Meq Tab PO 06/01/20 12:00 40 meq NOW VICTOR M Administration Sodium Chloride 10 ml 06/01/20 09:00 06/01/20 08:40 Flush - Normal Saline 10 Ml Syringe IVF 10 ml Q12HR VICTOR M Administration Throat Lozenges 1 norah 05/30/20 18:54 05/31/20 18:16 Cepastat Lozenges 1 Norah PO 1 norah PRN PRN Administration SORE THROAT - Exam General Appearance: NAD, awake alert Heart: no gallops, no rubs, normal peripheral pulses, III/IV Respiratory: CTAB, no wheezes, no rales, no ronchi, normal chest expansion Gastrointestinal: soft, non-tender, normal bowel sounds, no bruit, no guarding, no rigidity Gastrointestinal - other findings: ileostomy bag Extremities: no cyanosis, no edema Psychiatric: normal affect, A&O x 3 Hosp A/P (1) UTI (urinary tract infection) Status: Acute (2) Abdominal hernia without obstruction or gangrene Code(s): K46.9 - UNSPECIFIED ABDOMINAL HERNIA WITHOUT OBSTRUCTION OR GANGRENE Status: Chronic (3) Low magnesium level Code(s): R79.0 - ABNORMAL LEVEL OF BLOOD MINERAL Status: Acute (4) Hypokalemia Code(s): E87.6 - HYPOKALEMIA Status: Acute (5) Hypothyroid Code(s): E03.9 - HYPOTHYROIDISM, UNSPECIFIED Status: Chronic (6) PETTY (iron deficiency anemia) Code(s): D50.9 - IRON DEFICIENCY ANEMIA, UNSPECIFIED Status: Chronic (7) Anxiety and depression Code(s): F41.9 - ANXIETY DISORDER, UNSPECIFIED; F32.9 - MAJOR DEPRESSIVE DISORDER, SINGLE EPISODE, UNSPECIFIED Status: Chronic - Plan #UTI Patient still asymptomatic. Urine culture resulted. Resistant to Rocephin. Discontinue Rocephin. Start meropenem IVPB. Likely discharge home on nitrofurantoin or Bactrim. #Abdominal hernia without obstruction or gangrene Small bowel follow-through no evidence of small bowel distention or dilatation. General surgery recs appreciated. Continue to advance diet. Follow-up with GI outpatient. If patient desires surgical intervention, recommendation for specialist in [facility]. #Low magnesium level Mag 1.7. Give 2 g IVPB. Recheck level in a.m. #Hypokalemia Mild. K 3.3. Replaced with 40 mEq oral. Recheck level in a.m. #Hypothyroidism Continue home dose levothyroxine. #Iron deficiency anemia Hgb 9.9, HCT 32.5 Recheck levels in a.m. #Anxiety and depression Chronic, stable.
[2020-06-01] MEDS: Acetaminophen 325 MG TAB PO PRN ×2 (11:25→19:21)
[2020-06-01] MEDS: Morphine 4 MG/ML VIAL SLOW IVP PRN ×2 (12:00→18:58)
[2020-06-01] MEDS: MEROPENEM 1 GM/50 ML 1 GM in Premix Bag 1 BAG IVPB SCH ×2 (13:29→21:20)
--- NOTE | 2020-06-01 15:20 | PRG ---
DATE OF SERVICE: 06/01/2020 SUBJECTIVE: Mila Lopez is doing well. Small-bowel follow-through was normal yesterday. She had rapid drainage into her ileostomy. The patient has seen me in my office and records from her operating facilities, [facility], have been submitted and have them on file. The patient states that her ileostomy now is working well. She is eating well. When she eats solid food, however, she has crampy pain in upper abdomen. She does have Stacie-en-Y gastric bypass configuration. Because of her persistent complaints of pain, we will consult GI in case upper endoscopy could be considered. Currently, there are no findings to warrant surgical exploration abdomen. The patient is in agreement. She does not want . She has a chronic wide-mouth abdominal wall hernia and has learned to live well with her ileostomy. We would continue management in this regard. 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 However, weight is stable and she is obese, BMI 40. At this point, we will ask Dr. Parisi, GI, to see her. Dr. Shepherd is seeing her in the past, consideration of upper endoscopy to look at her gastrojejunostomy could be given. There are no signs of obstruction on her CT scan or upper GI in regard to Stacie limb or her jejunal jejunostomy. OBJECTIVE: VITAL SIGNS: Temperature 98 degrees, pulse 84, blood pressure 131/64. LUNGS: Clear to auscultation. CARDIAC: Regular rate and rhythm. No murmur or gallop. ABDOMEN: Soft, large hernia, right abdomen. LABORATORY DATA: None. Job ID: [id number]
--- NOTE | 2020-06-01 17:10 | PDOC.EVN ---
Event Note - Event Note Event Note: Chart reviewed. Pt seen and examined. Discussed case with SULY. Agree with assessment and plan of care as documented.
[2020-06-01] MEDS: Ondansetron PF 4 MG/2 ML Vial IVP PRN (18:59)
[2020-06-01] MEDS: Loratadine 10 MG TAB PO SCH (21:20)
[2020-06-01] MEDS: clonazePAM 0.5 MG TAB PO SCH (21:20)
[2020-06-01] MEDS: Pantoprazole 40 MG VIAL IVP SCH (21:20)
[2020-06-01] MEDS: Enoxaparin Sodium 40 MG/0.4 ML SYRINGE SC SCH (21:20)
[2020-06-02] MEDS: metroNIDAZOLE 500 MG in Premix Bag 1 BAG IVPB SCH ×3 (01:29→17:58)
--- NOTE | 2020-06-02 01:31 | CON ---
DATE OF CONSULTATION: 06/01/2020 REASON FOR CONSULTATION: Epigastric abdominal pain. CONSULTING PROVIDER: Dr. Jm Hook. HISTORY OF PRESENT ILLNESS: The patient is an 80-year-old female with past medical history of hypertension, hyperlipidemia, GERD, anemia, anxiety, depression, osteoarthritis, hypothyroidism, asthma, diverticulitis, and multiple partial small bowel obstruction secondary to a large ventral hernia, presenting with complaints of midepigastric/right upper quadrant abdominal pain. On interviewing the patient, she states that she has been having this abdominal pain since approximately 2016 when she had her initial surgery and ischemic bowel requiring resection of her small intestine and large intestine. Since that time, she has been having intermittent episodes of increased cramping abdominal pain located primarily in the midepigastric/right upper quadrant (at the location of her ventral hernia) with nonradiating character and reaches a severity of 7/10 to 8/10. She states that when this happens, she is usually admitted to the hospital with imaging consistent with partial small bowel obstructions in the past. She would then undergo conservative management with NG tube placement and resolution of her pain within 24 hours. However, this last , she has began having increasing cramping abdominal pain in the same region that was very similar to prior bouts. She attempted to administer both MiraLAX and prune juice in order to promote intestinal motility with some improvement in her abdominal pain, but had increasing severity on Sunday, which then prompted her to seek healthcare assistance on Sunday. On admission to the [facility] ER, she was noted to have a CT scan in the ER that showed a large right abdominal wall hernia with thickening of the small bowel and colonic ashraf within this region concerning for inflammation/infection. With the presence of air-fluid levels, there was also the possibility of a partial small bowel obstruction, so General Surgery was consulted for further evaluation. On their evaluation, there does not appear to be any evidence of small bowel obstruction (per small bowel follow through obtained yesterday) with no plans for surgical intervention at this time. On further interview of the patient, she states that this abdominal pain tends to be precipitated by the ingestion of solid foods and will occur within minutes of ingestion of any solid foods. This pain is worse with also the ingestion of ice cream and pressure to the region, better with placement of a heating pad/hot shower, lying down, and vomiting. She denies any specific food triggers, but has been attempting to adhere to a lower-fiber diet as been recommended by Dr. Shepherd in the past. At the current time, she states that her abdominal pain is currently controlled with the administration of IV morphine and she currently denies any nausea, vomiting, fevers, chills, hematemesis, melena, hematochezia, dysphagia, or odynophagia. REVIEW OF SYSTEMS: A 10-category review of systems was obtained with all responses negative except for the pertinent positives as listed in HPI. PAST MEDICAL HISTORY: As per HPI. PAST SURGICAL HISTORY: Stacie-en-Y gastric bypass with postoperative complications including internal hernia requiring small-bowel resection, multiple incisional hernias repaired as well as abdominoplasty using mesh. She did have non-healing wounds secondary to mesh placement with fistula formation and ultimately had an incarcerated ventral hernia that occurred in 2017 resulting in resection of both colon and small bowel and required placement of left upper quadrant ileostomy. She also has undergone appendectomy and cholecystectomy. FAMILY HISTORY: Denies any GI malignancies. SOCIAL HISTORY: Denies any tobacco, alcohol, or illicit drug use. OUTPATIENT MEDICATIONS: Reviewed. ALLERGIES: NO KNOWN DRUG ALLERGIES. PHYSICAL EXAMINATION: VITAL SIGNS: Temperature 99.6, pulse 92, blood pressure 106/52, respiratory rate 16, saturating 97% on room air. GENERAL: The patient was sitting in a chair at bedside, in no acute distress. Alert and oriented x4. HEENT: Normocephalic and atraumatic. NECK: Supple. No JVD or scleral icterus noted. CARDIOVASCULAR: Regular rate and rhythm with no discernible murmurs, gallops, or rubs. RESPIRATORY: Clear to auscultation bilaterally with no discernible wheezes or rales. ABDOMEN: Normoactive bowel sounds. Soft, bulging of her abdomen located just at right of midline and in the right upper quadrant consistent with the right abdominal wall hernia defect with tenderness to palpation over the hernia itself. Ileostomy located in the left upper quadrant. EXTREMITIES: No cyanosis, clubbing, or edema. LABORATORY DATA: CBC with a white blood cell count of 4.4, hemoglobin 9.9, hematocrit 32.5, platelets 201. Chemistry with a sodium of 141, potassium 3.3, chloride 106, CO2 of 20, BUN 8, creatinine 0.61, glucose 91. IMAGING DATA: CT of the abdomen and pelvis was obtained on May 30, 2020, showing postoperative changes consistent with gastric bypass. A small hiatal hernia was seen. However, a large right anterolateral abdominal wall hernia with multiple loops of small and large bowel were seen within the herniation itself with marked wall thickening of these loops of bowel. Loculated fluid was also seen within the hernia. A left ostomy was seen in the left upper quadrant in addition to a 3.5 cm uterine fibroid. A small-bowel follow-through was obtained on May 31, 2020, which showed contrast opacifying the small bowel and seen entering the ostomy not indicative of an obstruction. ASSESSMENT AND PLAN: The patient is an 80-year-old female with past medical history of hypertension, hyperlipidemia, GERD, chronic anemia, anxiety, depression, osteoarthritis, hypothyroidism, asthma, diverticulitis, and multiple partial small bowel obstructions secondary to a large right anterior wall ventral hernia, presenting with midepigastric/right upper quadrant abdominal pain and inability to tolerate solid food intake secondary to increased pain. Midepigastric/right upper quadrant abdominal pain. The patient has been having intermittent episodes of midepigastric/right upper quadrant abdominal pain that has been present since at least 2017 after undergoing surgery secondary to bowel incarceration and resection of small bowel and large intestine at that time. The pain is characterized primarily as a cramping type pain, nonradiating, and reaching a severity of 7/10 to 9/10 on occasion and located primarily within the ventral abdominal wall hernia. The pain seems to be most related to ingestion of solid intake (not precipitated by ingestion of liquids) where the pain will occur within minutes after ingestion of any solid food stuffs. She has been evaluated by the General Surgery Service during this hospitalization for her large anterolateral abdominal wall hernia with no plans for surgical intervention at this time (the patient will need to be transferred to a specialist in [place] for any surgical correction). However, with the question of midepigastric pain occurring within minutes of ingestion of any food stuffs, it is concerning for the presence of possible dumping syndrome versus stenosis of the gastrojejunal anastomosis versus ulcer formation versus increased intraluminal gas contained within the small and large bowel encased within the abdominal wall hernia (most likely). RECOMMENDATIONS: 1. Would attempt to adhere to smaller and more frequent meals throughout the day with low-fiber content. 2. Would consider placing patient on a FODMAP diet to decrease intraluminal gas. 3. Would consider regular administration of simethicone to decrease intraluminal gas and therefore abdominal pain. 4. Would make the patient n.p.o. at midnight in anticipation of an upper endoscopy tomorrow for evaluation of possible ulcer formation versus stenosis/stricture not seen on small-bowel follow-through. 5. Would defer to General Surgery Service for any evaluation regarding surgical intervention (albeit the patient would be high risk for complication). We will continue to follow. Please call with any questions. Job ID: [id number]
[2020-06-02 04:05] LABS: Anion Gap 11 mmol/L (10-20); BUN (Urea Nitrogen) 6 mg/dL (9.8-20.1); Calc. Creatinine Clearance 104 mL/min (70-130); Carbon Dioxide 27 mmol/L (23-31); Chloride 101 mmol/L (98-107); Estimated GFR-MDRD 89; Glucose 120 mg/dL (83-110); Magnesium 1.8 mg/dL (1.6-2.6); Potassium 3.6 mmol/L (3.5-5.1); Sodium 135 mmol/L (136-145)
[2020-06-02 05:07] LABS: Band 30 % (5-11); Hemoglobin 9.4 g/dL (12.0-16.0); Hypochromia SLIGHT = 6-15 cells (100X) (0-5/hpf); Lymphocytes 21 % (21-51); MDiff Complete? YES; Mean Corpuscular HGB CONC 30.3 g/dL (32.0-36.0); Mean Corpuscular Hemoglobin 27.3 pg (27.0-31.0); Mean Corpuscular Volume 90.1 fL (78.0-98.0); Mean Platelet Volume 7.5 fL (7.4-10.4); Metamyelocyte 1 % (0-0); Monocytes 8 % (0-10); Neutrophil 40 % (42-75); Platelet Count 211 thou/uL (130-400); Platelet Morphology Comment Appears Adequate; RBC Distribution Width 14.9 % (11.5-14.5); Red Blood Cell (RBC) Count 3.46 mill/uL (4.20-5.40); White Blood Cell (WBC) Count 4.6 thou/uL (4.8-10.8)
[2020-06-02] MEDS: Levothyroxine Sodium 100 MCG TAB PO SCH (05:50)
[2020-06-02] MEDS: MEROPENEM 1 GM/50 ML 1 GM in Premix Bag 1 BAG IVPB SCH ×3 (05:51→22:16)
--- NOTE | 2020-06-02 08:06 | PDOC.HOSPP ---
- Subjective Encounter Date: 06/02/20 Encounter Time: 07:30 Subjective: Patient seen and examined. Reports some abdominal discomfort yesterday evening after eating, resolved with morphine IVP x1 dose. Been NPO since midnight, scheduled for EGD today, decreased output in ileostomy bag. Currently, comfortable, awaiting EGD procedure. Had questions about FODMAP diet. Denies any vomiting or hematochezia. Denies any fever, chills, chest pain or shortness of breath. Denies any urinary symptoms. - Objective Vital Signs & Weight: Weight Admit Weight 207 lb 1.6 oz Weight 207 lb 1.6 oz I&O: 06/01/20 06/02/20 06/03/20 06:59 06:59 06:59 Intake Total 6175 2200 Balance 6175 2200 Result Diagrams: 06/02/20 03:29 06/02/20 03:29 Hospitalist ROS - Review of Systems Constitutional: denies: fever, chills Respiratory: denies: cough, shortness of breath, hemoptysis Cardiovascular: denies: chest pain, palpitations, edema, light headedness Gastrointestinal: reports: abdominal pain (mild discomfort). denies: nausea, vomiting, melena, hematochezia Genitourinary: denies: dysuria, hematuria All other systems reviewed; all pertinent +/- noted in HPI/Subj - Medication Medications: Active Medications Generic Name Dose Route Start Last Admin Trade Name Freq PRN Reason Stop Dose Admin Acetaminophen 650 mg 05/30/20 11:26 06/01/20 19:21 Acetaminophen 325 Mg Tab PO 650 mg Q4H PRN Administration Headache/Fever/Mild Pain (1-3) Bupropion HCl 100 mg 05/30/20 21:00 06/01/20 21:19 Bupropion Hcl 100 Mg Tab PO 100 mg TID VICTOR M Administration Calcium/Vitamin D 1 tab 06/01/20 09:00 06/01/20 08:36 Calcium Carbonate 600 Mg + Vit D Tab PO 1 tab DAILY VICTOR M Administration Clonazepam 0.5 mg 06/01/20 21:00 06/01/20 21:20 Clonazepam 0.5 Mg Tab PO 0.5 mg HS VICTOR M Administration Coenzyme Q10 500 mg 06/01/20 09:00 06/01/20 08:42 Ubidecarenone 50 Mg Cap PO 200 mg QAM VICTOR M Administration Fish Oil 1,000 mg 06/01/20 09:00 06/01/20 08:36 Fish Oil 1,000 Mg Cap PO 1,000 mg DAILY VICTOR M Administration Metronidazole 500 mg/ Device 100 mls @ 100 mls/hr 05/30/20 17:00 06/02/20 01:29 IVPB 100 mls 0100,0900,1700 VICTOR M Administration Meropenem 1 gm/ Device 50 mls @ 200 mls/hr 06/01/20 14:00 06/02/20 05:51 IVPB 50 mls Q8HR VICTOR M Administration Levothyroxine Sodium 200 mcg 05/31/20 06:00 06/02/20 05:50 Levothyroxine Sodium 100 Mcg Tab PO 200 mcg 0600 VICTOR M Administration Loratadine 10 mg 05/31/20 21:00 06/01/20 21:20 Loratadine 10 Mg Tab PO 10 mg HS VICTOR M Administration Morphine Sulfate 4 mg 05/30/20 11:37 06/01/20 18:58 Morphine 4 Mg/Ml Vial SLOW IVP 4 mg Q3H PRN Administration Moderate to Severe Pain (6-10) Multivitamins/Minerals 2 tab 06/01/20 09:00 06/01/20 08:38 Vit A,C & E/Lutein/Minerals Tablet PO 2 tab DAILY VICTOR M Administration Multivitamins/Zinc 1 tab 06/01/20 09:00 06/01/20 08:39 Stress 600 With Zinc 1 Tab PO 1 tab QAM VICTOR M Administration Ondansetron HCl 4 mg 05/30/20 11:26 06/01/20 18:59 Ondansetron Pf 4 Mg/2 Ml Vial IVP 4 mg Q6H PRN Administration Nausea/Vomiting Pantoprazole Sodium 40 mg 05/31/20 21:00 06/01/20 21:20 Pantoprazole 40 Mg Vial IVP 40 mg 2100 VICTOR M Administration Sodium Chloride 10 ml 06/01/20 09:00 06/01/20 21:20 Flush - Normal Saline 10 Ml Syringe IVF 10 ml Q12HR VICTOR M Administration Throat Lozenges 1 norah 05/30/20 18:54 05/31/20 18:16 Cepastat Lozenges 1 Norah PO 1 norah PRN PRN Administration SORE THROAT - Exam General Appearance: NAD, awake alert. negative: ill appearing General - other findings: comfortable, laying in bed watching tv Eye: anicteric sclera ENT: normocephalic atraumatic Neck: supple, symmetric Heart: RRR, no gallops, no rubs, normal peripheral pulses, II/IV, III/IV Respiratory: CTAB, no wheezes, no rales, no ronchi, normal chest expansion Gastrointestinal: soft, no bruit, tender to palpation (mildly tender to right quadrants), distended (mildly distended). negative: normal bowel sounds (distant), no guarding, no rigidity Extremities: no cyanosis, no edema Neurological: no focal deficits Psychiatric: normal affect, A&O x 3 Hosp A/P (1) UTI (urinary tract infection) Status: Acute (2) Abdominal hernia without obstruction or gangrene Code(s): K46.9 - UNSPECIFIED ABDOMINAL HERNIA WITHOUT OBSTRUCTION OR GANGRENE Status: Chronic (3) Low magnesium level Code(s): R79.0 - ABNORMAL LEVEL OF BLOOD MINERAL Status: Acute (4) Hypokalemia Code(s): E87.6 - HYPOKALEMIA Status: Acute (5) Hypothyroid Code(s): E03.9 - HYPOTHYROIDISM, UNSPECIFIED Status: Chronic (6) PETTY (iron deficiency anemia) Code(s): D50.9 - IRON DEFICIENCY ANEMIA, UNSPECIFIED Status: Chronic (7) Anxiety and depression Code(s): F41.9 - ANXIETY DISORDER, UNSPECIFIED; F32.9 - MAJOR DEPRESSIVE DISORDER, SINGLE EPISODE, UNSPECIFIED Status: Chronic - Plan #UTI Patient asymptomatic. Continue meropenem IVPB. Likely discharge home on nitrofurantoin or Bactrim per UCX sensitivity report. #Abdominal hernia without obstruction or gangrene GI recs appreciated npo since midnight EGD this morning. Recommend small, frequent, low fiber diet, FODMAP, scheduled simethicone. Consult Sand Technician for FODMAP diet. Start folic acid, B complex vitamin. General surgery recs appreciated, If patient desires surgical intervention, recommendation for specialist in [place]. #Low magnesium level Mag 1.8 Will give 2 g IVP and check in a.m. #Hypokalemia K 3.6 We will give 40 mEq IVPB Recheck in a.m. #Hypothyroidism Chronic, stable. Continue home dose of levothyroxine. #Iron deficiency anemia Chronic. Hgb 9.4, HCT 31.1 Denies hematemesis, hematochezia, melena. Repeat CBC in a.m. #Anxiety and depression Chronic, stable. Continue Wellbutrin and Klonopin at night. Discussed case with Dr. Farnsworth.
[2020-06-02] MEDS ORDERED: Magnesium 2 GM/50 ML 2 GM in Premix Bag 1 BAG IVPB SCH (08:15)
[2020-06-02] MEDS ORDERED: Potassium Chloride 40 MEQ in Sodium Chloride 0.9% 250 ML 250 ML IVPB SCH (09:00)
[2020-06-02] MEDS ORDERED: Fentanyl 100 MCG/2 ML VIAL ONE (09:00)
[2020-06-02] MEDS ORDERED: PROPOFOL 20 ML ONE (09:01)
[2020-06-02] MEDS: Folic Acid/Vit B Comp W-C PO SCH (11:22)
[2020-06-02] MEDS: Stress 600 With Zinc 1 TAB PO SCH (11:22)
[2020-06-02] MEDS: Calcium Carbonate 600 MG + Vit D TAB PO SCH (11:22)
[2020-06-02] MEDS: Simethicone Chewable 80 MG TAB PO SCH ×2 (11:23→20:29)
[2020-06-02] MEDS: Fish Oil 1,000 MG CAP PO SCH (11:24)
[2020-06-02] MEDS: buPROPion HCl 100 MG TAB PO SCH ×3 (11:24→20:29)
[2020-06-02] MEDS: Ubidecarenone 50 MG CAP PO SCH (11:25)
[2020-06-02] MEDS: Morphine 4 MG/ML VIAL SLOW IVP PRN (11:31)
[2020-06-02] MEDS: Vit A,C & E/Lutein/Minerals Tablet PO SCH (13:05)
--- NOTE | 2020-06-02 14:39 | OP ---
DATE OF PROCEDURE: 06/02/2020 PROCEDURE PERFORMED: Esophagogastroduodenoscopy. PREPROCEDURE DIAGNOSES: 1. Abdominal pain, right upper quadrant, pain with eating. 2. History of previous large right upper quadrant abdominal wall hernia with both large and small bowel herniated through this area. POSTPROCEDURE DIAGNOSES: 1. Normal Stacie-en-Y gastric pouch anatomy. 2. Normal gastrojejunal anastomosis. 3. Normal jejunal limb, anastomosis with the duodenal limb is not identified. 4. The only changes in the jejunal limb were that of some venous blebs. RECOMMENDATIONS: I suspect the patient's abdominal pain is related to her involvement of small bowel into the hernia as noted on her CAT scan with air-fluid levels and though this prior results and partial obstruction. some ischemia there, although none is seen endoscopically. There is not any endoscopic or medical treatment for this unfortunately. Recommendations, we will defer management of large hernia to Surgery. DESCRIPTION OF PROCEDURE: After the patient was informed of the risks, benefits, and possible complications of endoscopy including perforation, reaction to medication, and aspiration, informed consent was obtained. The patient was brought to the endoscopy suite, where she was sedated in gradual fashion. Once she was comfortable, a bite block was placed in the incisural orifice. The endoscope was advanced into the esophagus into the gastric pouch and through the gastrojejunal anastomosis which appeared healthy and into the jejunal limb to the maximal extent of the endoscope. The jejunoduodenal anastomosis was not identified. The jejunal limb was somewhat tortuous, indicating that probably goes into the hernia sac. There were no mucosal abnormalities other than some venous lakes. There were no signs of ischemia or inflammation of the mucosa. The anastomosis was viewed in forward and retroflexed views and was normal. The gastric pouch was of normal size. There was no evidence of outlet obstruction. The GE junction was normal on retroflexed views. The scope was removed. The patient tolerated the procedure well. There were no complications. We will sign off. If I can be of any further assistance in this patient's care, please do not hesitate to contact me. Job ID: [id number]
[2020-06-02] MEDS: Acetaminophen 325 MG TAB PO PRN ×2 (17:58→22:39)
--- NOTE | 2020-06-02 18:56 | PDOC.EVN ---
Event Note - Event Note Event Note: Chart was reviewed. Pt was seen and examined. I discussed case with SULY. Agree with assessment and plan of care as documented. EGD today.
[2020-06-02] MEDS: Pantoprazole 40 MG VIAL IVP SCH (20:29)
[2020-06-02] MEDS: Loratadine 10 MG TAB PO SCH (20:29)
[2020-06-02] MEDS: clonazePAM 0.5 MG TAB PO SCH (20:29)
[2020-06-03] MEDS: metroNIDAZOLE 500 MG in Premix Bag 1 BAG IVPB SCH ×2 (00:21→09:50)
[2020-06-03] MEDS: Levothyroxine Sodium 100 MCG TAB PO SCH (05:31)
[2020-06-03] MEDS: MEROPENEM 1 GM/50 ML 1 GM in Premix Bag 1 BAG IVPB SCH (05:35)
[2020-06-03 06:09] LABS: Anion Gap 11 mmol/L (10-20); BUN (Urea Nitrogen) 5 mg/dL (9.8-20.1); Calc. Creatinine Clearance 115 mL/min (70-130); Calcium 7.8 mg/dL (7.8-10.44); Carbon Dioxide 26 mmol/L (23-31); Chloride 102 mmol/L (98-107); Estimated GFR-MDRD Greater than 90; Glucose 101 mg/dL (83-110); Magnesium 1.8 mg/dL (1.6-2.6); Potassium 3.3 mmol/L (3.5-5.1); Sodium 136 mmol/L (136-145)
[2020-06-03 06:10] LABS: Band 19 % (5-11); Hemoglobin 9.7 g/dL (12.0-16.0); Lymphocytes 10 % (21-51); MDiff Complete? YES; Mean Corpuscular HGB CONC 30.8 g/dL (32.0-36.0); Mean Corpuscular Hemoglobin 27.9 pg (27.0-31.0); Mean Corpuscular Volume 90.6 fL (78.0-98.0); Mean Platelet Volume 7.6 fL (7.4-10.4); Monocytes 13 % (0-10); Neutrophil 58 % (42-75); Platelet Count 201 thou/uL (130-400); Platelet Morphology Comment Appears Adequate; RBC Distribution Width 14.8 % (11.5-14.5); Red Blood Cell (RBC) Count 3.48 mill/uL (4.20-5.40); White Blood Cell (WBC) Count 4.7 thou/uL (4.8-10.8)
[2020-06-03 08:17] VITALS: BP 123/59; TEMP 98.5
[2020-06-03] MEDS: Stress 600 With Zinc 1 TAB PO SCH (09:09)
[2020-06-03] MEDS: Calcium Carbonate 600 MG + Vit D TAB PO SCH (09:09)
[2020-06-03] MEDS: Folic Acid/Vit B Comp W-C PO SCH (09:09)
[2020-06-03] MEDS: buPROPion HCl 100 MG TAB PO SCH (09:09)
[2020-06-03] MEDS: Simethicone Chewable 80 MG TAB PO SCH (09:11)
[2020-06-03] MEDS: Fish Oil 1,000 MG CAP PO SCH (09:11)
[2020-06-03] MEDS: Vit A,C & E/Lutein/Minerals Tablet PO SCH (09:48)
[2020-06-03] MEDS: Ubidecarenone 50 MG CAP PO SCH (09:48)
[2020-06-03] MEDS ORDERED: Nitrofurantoin Monohyd/M-Cryst 100 MG CAP PO SCH ×2 (11:30→21:00)
[2020-06-03] MEDS ORDERED: Potassium Chloride 20 MEQ TAB PO SCH (12:15)
--- NOTE | 2020-06-04 06:35 | PQF ---
Dear : Alex Farnsworth Date : 06/04/20 Please exercise your independent, professional judgment in responding to the clarification form. Clinical indicators are provided on the bottom of this form for your review Can you please further clarify the etiology of Abdominal pain? Please check appropriate box(es): [ x] Abdominal wall hernia [ ] Urinary tract infection [ ] Postoperative Adhesion [ ] Other diagnosis please specify [ ] Unable to determine Physician Signature: Date/Time: For continuity of documentation, please document condition throughout progress notes and discharge summary. Thank You. To be completed by CDI/Coding staff for physician review: Present Clinical Indicators - Signs / Symptoms / Labs Results and Location in Medical Record [ x ] Right sided abdominal pain x4 days H and P pg.1 [ x ] CT abdomen showed large anterior abdominal wall hernia H and P pg.7 [ x ] Patient has evidence of UTI Event note pg.1 [ x ] No evidence of complete small bowel obstruction Small bowel Xray 05/31 [ x ] Recurrent abdominal complaints and partial obstruction 2/2 adhesions Consult pg.2 [ x ] More likely, she is having intermittent problems with scar tissue from multiple prior surgeries Consult pg.2 [ x ] Abdominal pain, right upper quadrant, pain with eating OP report pg.1 [ x ] Suspect the patients abdominal pain related to her involvement od small bowel into the hernia as noted of her CAT OP report pg.1 [ x ] Urine culture: E.coli Collected 05/30 [ x ] WBC: 05/30=6.9 06/02=4.6 06/03=4.7 Labs 05/30 Present Risk Factors Results and Location in Medical Record [ x ] Hx of multiple abdominal surgery H and P pg.1 [ x ] HTN Consult Dr. Parisi pg.1 [ x ] HLD Consult Dr. Parisi pg.1 [ x ] GERD Consult Dr. Parisi pg.1 [ x ] Chronic anemia Consult Dr. Parisi pg.1 [ x ] 80 years old H and P pg.1 [ x ] Morbid Obesity PN 05/31 [ x ] Presence of ostomy PN 05/31 Present Treatments Results and Location in Medical Record [ x ] Abdomen/Pelvis CT 05/30 [ x ] Small bowel Xray 05/31 [ x ] GI Consult Dr. Hook 05/31 [ x ] IV Fluids MAR [ x ] EGD OP report pg.1 [ x ] Ceftriaxone 2gm IV MAR [ x ] Morphine 4mg IV MAR [ x ] Metronidazole 500mg IV MAR CDS/Digital Imager Signature: Jamar Paul Phone #: [phone] Date: 06/04/2020 This is a permanent part of the Medical Record [facility]
--- NOTE | 2020-06-04 06:50 | DIS ---
DATE OF ADMISSION: 05/30/2020 DATE OF DISCHARGE: 06/03/2020 PRIMARY CARE PROVIDER: Dr. Theresa Beatty. DISCHARGE DIAGNOSES: 1. Urinary tract infection. 2. Bowel obstruction. 3. Hyponatremia. 4. Hypokalemia. CONDITION OF THE PATIENT ON THE DAY OF DISCHARGE: Stable. I assessed Ms. Lopez on the day of discharge. She denies any chest pain or shortness of breath. Vital signs are stable. S1 and S2 are heard, regular. Lungs are clear to auscultation bilaterally. CONSULTATIONS DURING THIS HOSPITALIZATION: General Surgery, Dr. Hook and Gastroenterology, Dr. Parisi. HOSPITAL COURSE: Ms. Lopez is a pleasant 80-year-old lady, who was admitted to [facility] for urinary tract infection and bowel obstruction on May 30, 2020. She was seen by General Surgery Service. She was also seen by Gastroenterology Service. She underwent EGD on June 02, 2020, without any acute findings. Her bowel obstruction resolved, and she had good ostomy output. She is being discharged home in a stable condition. Urine culture grew Escherichia coli that was resistant to ampicillin, cefepime, ceftazidime, ceftriaxone, intermediate sensitivity to fluoroquinolones and sensitive to amikacin, ampicillin/sulbactam, cefoxitin, gentamicin, meropenem, nitrofurantoin, Zosyn, tobramycin, and Bactrim. She is being discharged home on Macrobid 100 mg two times a day for 7 days. Many thanks for allowing me to participate in your patient's care. Please feel free to contact me with any questions or concerns. POST-ACUTE CARE FOLLOWUP: With primary care provider in 3 days. Please note that the patient was seen by dietitian service regarding FODMAP diet. She needs outpatient referral through primary care provider for dietitian. DISCHARGE DESTINATION: Home. TIME SPENT: Total amount of time spent coordinating this discharge: 31 minutes. Job ID: [id number]
== END 2020-06-03 15:47 | disposition home or self-care (01) | DRG 394 ==
LOC: ERS 06:12 → ONC 12:55
PROVIDERS: ADMIT Internal Medicine; ATTEND Internal Medicine
PROC: 0DJ08ZZ Inspection of Upper Intestinal Tract, Via Natural or Artificial Opening Endoscopic (ICD-10-PCS; principal; 2020-06-02)
DX: K43.6 Other and unspecified ventral hernia with obstruction, without gangrene (principal); N39.0 Urinary tract infection, site not specified; Z68.41 Body mass index [BMI] 40.0-44.9, adult; F32.0 Major depressive disorder, single episode, mild; Z51.5 Encounter for palliative care; Z20.828 Contact with and (suspected) exposure to other viral communicable diseases; K46.9 Unspecified abdominal hernia without obstruction or gangrene; E03.9 Hypothyroidism, unspecified; D50.9 Iron deficiency anemia, unspecified; F41.9 Anxiety disorder, unspecified; F32.9 Major depressive disorder, single episode, unspecified; E78.5 Hyperlipidemia, unspecified; E78.00 Pure hypercholesterolemia, unspecified; I10 Essential (primary) hypertension; N32.81 Overactive bladder; K52.9 Noninfective gastroenteritis and colitis, unspecified; E66.01 Morbid (severe) obesity due to excess calories; E83.42 Hypomagnesemia; E87.6 Hypokalemia; M19.90 Unspecified osteoarthritis, unspecified site; Z90.49 Acquired absence of other specified parts of digestive tract; Z93.2 Ileostomy status; Z79.890 Hormone replacement therapy; Z79.899 Other long term (current) drug therapy
CPT/HCPCS: 36415; 74022; 74177; 74250; 80048; 80053; 81003; 81015; 83605; 83690; 83735; 84439; 84443; 85025; 87077; 87086; 87186; 87635; 87804; 93005; C9113; J0696; J1650; J2185; J2270; J2405; J2704; J3010; J3475; J3480; J3490; J7050; Q0162; Q9963; Q9967; U0003

== ENCOUNTER 2020-07-12 14:41 | Outpatient (CLI) | payer MEDICARE, OTHER ==
--- NOTE | 2020-07-12 16:05 | MRI ---
MRI BRAIN WITH AND WITHOUT CONTRAST: DATE: 07/12/2020 HISTORY: 80-year-old female follow-up benign brain tumor D 33.2 COMPARISON: 09/18/2018 TECHNIQUE: Multiplanar, multisequence MRI of the brain performed pre- and post-IV injection of gadolinium based contrast agent. FINDINGS: Again noted is the right paramedian approximately 2.2 x 2.2 x 1.9 cm extra-axial enhancing mass conta ining some calcifications, which indents the medial aspect of the right occipital lobe, without causing vasogenic edema. There has been interval growth, allowing for slight differences in cursor pl acement on the images. There is no abnormal intra-axial enhancement. There are mild chronic ischemic white matter changes of the brainstem and bilateral cerebral hemisphe res. Ventricles are normal in size and configuration. No evidence of recent or remote intra-axial hemorrhage. No restricted diffusion in the brain parenchyma. There has been no interval change overall. 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
== END 2020-07-12 14:42 | disposition home or self-care (01) ==
LOC: TBSIIMAG 14:41
PROVIDERS: ATTEND Neurological Surgery
DX: D32.0 Benign neoplasm of cerebral meninges (principal)
CPT/HCPCS: 70553

== ENCOUNTER 2020-07-22 13:55 | Outpatient (CLI) | payer MEDICARE, OTHER | END 2020-07-22 13:56 | disposition home or self-care (01) | LOC: DTY/OP 13:55 | PROVIDERS: ATTEND Family Medicine | DX: K91.2 Postsurgical malabsorption, not elsewhere classified (principal); K56.609 Unspecified intestinal obstruction, unspecified as to partial versus complete obstruction | CPT/HCPCS: 97802 ==

== ENCOUNTER 2021-10-31 15:01 | Inpatient (IN) | payer MEDICARE, OTHER ==
[2021-10-31 17:13] VITALS: BMI 43.0
[2021-10-31] MEDS ORDERED: FLU VACC QS2021-22(65YR UP)/PF 240 MCG/0.7 ML SYRINGE IM ONE (17:15)
[2021-10-31] MEDS: Morphine 4 MG/ML VIAL SLOW IVP PRN ×2 (17:25→21:40)
[2021-10-31] MEDS: Ondansetron PF 4 MG/2 ML Vial IVP PRN ×2 (17:26→23:37)
[2021-10-31] MEDS ORDERED: Simethicone Chewable 80 MG TAB PO PRN (17:35)
[2021-10-31] MEDS ORDERED: Albuterol Sulfate 2.5 mg/3 ml Neb NEB PRN (17:35)
[2021-10-31] MEDS: Sodium Chloride 0.9% 1,000 ML IV SCH (18:21)
[2021-10-31] MEDS: buPROPion HCl 100 MG TAB PO SCH (21:42)
[2021-11-01] MEDS: Morphine 4 MG/ML VIAL SLOW IVP PRN ×4 (03:48→22:50)
[2021-11-01] MEDS: Levothyroxine Sodium 125 MCG TAB PO SCH (05:27)
[2021-11-01 06:59] LABS: #Lymphocytes 0.6 thou/uL (1.20-3.40); #Monocytes 0.4 thou/uL (0.11-0.59); #Neutrophils 2.6 thou/uL (1.40-6.50); %Eosinophils 0.3 % (0.0-10.0); %Lymphocytes 16.9 % (21.0-51.0); %Monocytes 11.4 % (0.0-10.0); %Neutrophils 71.4 % (42.0-75.0); Mean Corpuscular Hemoglobin 28.3 pg (27.0-31.0); Mean Corpuscular Volume 91.1 fL (78.0-98.0); Mean Platelet Volume 6.8 fL (7.4-10.4); Platelet Count 201 thou/uL (130-400); RBC Distribution Width 15.2 % (11.5-14.5); Red Blood Cell (RBC) Count 3.88 mill/uL (4.20-5.40); White Blood Cell (WBC) Count 3.7 thou/uL (4.8-10.8)
[2021-11-01 07:13] LABS: Anion Gap 13 mmol/L (10-20); BUN (Urea Nitrogen) 10 mg/dL (9.8-20.1); Calc. Creatinine Clearance 95 mL/min (70-130); Calcium 7.9 mg/dL (7.8-10.44); Carbon Dioxide 24 mmol/L (23-31); Chloride 109 mmol/L (98-107); Glucose 107 mg/dL (83-110); Potassium 3.8 mmol/L (3.5-5.1); Sodium 142 mmol/L (136-145)
[2021-11-01] MEDS: Sodium Chloride 0.9% 1,000 ML IV SCH ×2 (08:17→19:04)
[2021-11-01] MEDS: Enoxaparin Sodium 40 MG/0.4 ML SYRINGE SC SCH (08:21)
[2021-11-01] MEDS: buPROPion HCl 100 MG TAB PO SCH ×3 (08:29→21:11)
[2021-11-01] MEDS: clonazePAM 0.5 MG TAB PO SCH (08:29)
[2021-11-01] MEDS: Ondansetron PF 4 MG/2 ML Vial IVP PRN ×2 (11:28→21:11)
[2021-11-01] MEDS ORDERED: Morphine 4 MG/ML VIAL SLOW IVP PRN (12:03)
[2021-11-01] MEDS ORDERED: MD-Gastroview 120 ML BOT ONE (12:34)
[2021-11-02] MEDS: Morphine 4 MG/ML VIAL SLOW IVP PRN ×3 (03:17→14:09)
[2021-11-02] MEDS: Sodium Chloride 0.9% 1,000 ML IV SCH (04:41)
[2021-11-02 05:08] LABS: #Lymphocytes 0.4 thou/uL (1.20-3.40); #Monocytes 0.7 thou/uL (0.11-0.59); #Neutrophils 4.3 thou/uL (1.40-6.50); %Basophils 0.2 % (0.0-1.0); %Eosinophils 0.1 % (0.0-10.0); %Lymphocytes 7.7 % (21.0-51.0); %Monocytes 13.1 % (0.0-10.0); %Neutrophils 78.9 % (42.0-75.0); Hemoglobin 12.2 g/dL (12.0-16.0); Mean Corpuscular HGB CONC 30.7 g/dL (32.0-36.0); Mean Corpuscular Hemoglobin 27.8 pg (27.0-31.0); Mean Corpuscular Volume 90.6 fL (78.0-98.0); Platelet Count 209 thou/uL (130-400); RBC Distribution Width 15.3 % (11.5-14.5); Red Blood Cell (RBC) Count 4.38 mill/uL (4.20-5.40); White Blood Cell (WBC) Count 5.4 thou/uL (4.8-10.8)
[2021-11-02] MEDS: Ondansetron PF 4 MG/2 ML Vial IVP PRN ×2 (05:22→14:09)
[2021-11-02] MEDS: Levothyroxine Sodium 125 MCG TAB PO SCH (05:22)
[2021-11-02 05:28] LABS: Phosphorus 4.7 mg/dL (2.3-4.7)
[2021-11-02 05:46] LABS: Anion Gap 15 mmol/L (10-20); BUN (Urea Nitrogen) 20 mg/dL (9.8-20.1); Calc. Creatinine Clearance 90 mL/min (70-130); Calcium 8.8 mg/dL (7.8-10.44); Carbon Dioxide 28 mmol/L (23-31); Chloride 110 mmol/L (98-107); Glucose 132 mg/dL (83-110); Magnesium 2.4 mg/dL (1.6-2.6); Potassium 3.8 mmol/L (3.5-5.1); Sodium 149 mmol/L (136-145)
[2021-11-02] MEDS: Enoxaparin Sodium 40 MG/0.4 ML SYRINGE SC SCH (08:15)
[2021-11-02] MEDS: Dextrose 5 %-0.45 % NaCl 1,000 ML IV SCH ×3 (09:06→20:48)
[2021-11-02] MEDS: clonazePAM 0.5 MG TAB PO SCH (09:09)
[2021-11-02] MEDS: buPROPion HCl 100 MG TAB PO SCH ×3 (09:09→20:31)
[2021-11-02] MEDS ORDERED: Magnesium Citrate 300 ML BOT PER TUBE SCH (11:00)
[2021-11-02 11:52] LABS: Bilirubin Negative (Negative); Blood, Urine Negative (Negative); Clarity Extra Turbid (Clear); Glucose, Urine (Dipstick) Normal (Negative); Ketone, Urine 20 mg/dL (Negative); Leukocyte 75 Leu/uL (Negative); Nitrite Negative (Negative); Protein, Urine (Dipstick) 300 mg/dL (Neg-Trace); RBC/HPF 0-3 HPF (0-3); Squamous Epithelial 0-3 HPF (0-3); Urobilinogen Normal mg/dL (Less than 2); pH, Urine 8.5 (5.0-9.0)
[2021-11-02 11:56] LABS: Bacteria/HPF 1+ HPF (None Seen); Yeast-Budding 2+ HPF (None Seen)
[2021-11-02 11:58] LABS: Urine Culture Reflex Yes Yes
[2021-11-03 05:19] LABS: Band 10 % (5-11); Hemoglobin 11.3 g/dL (12.0-16.0); Hypochromia SLIGHT = 6-15 cells (100X) (0-5/hpf); Lymphocytes 18 % (21-51); MDiff Complete? YES; Mean Corpuscular HGB CONC 31.5 g/dL (32.0-36.0); Mean Corpuscular Hemoglobin 28.8 pg (27.0-31.0); Mean Corpuscular Volume 91.3 fL (78.0-98.0); Mean Platelet Volume 7.3 fL (7.4-10.4); Monocytes 8 % (0-10); Neutrophil 64 % (42-75); Platelet Count 208 thou/uL (130-400); Platelet Morphology Comment Appears Adequate; RBC Distribution Width 15.2 % (11.5-14.5); Red Blood Cell (RBC) Count 3.93 mill/uL (4.20-5.40); White Blood Cell (WBC) Count 3.3 thou/uL (4.8-10.8)
[2021-11-03 05:22] LABS: Anion Gap 13 mmol/L (10-20); BUN (Urea Nitrogen) 19 mg/dL (9.8-20.1); Calc. Creatinine Clearance 89 mL/min (70-130); Carbon Dioxide 26 mmol/L (23-31); Chloride 103 mmol/L (98-107); Glucose 116 mg/dL (83-110); Potassium 3.8 mmol/L (3.5-5.1); Sodium 138 mmol/L (136-145)
[2021-11-03 05:29] LABS: Phosphorus 2.5 mg/dL (2.3-4.7)
[2021-11-03 05:43] LABS: Magnesium 2.8 mg/dL (1.6-2.6)
[2021-11-03] MEDS: Levothyroxine Sodium 125 MCG TAB PO SCH (05:43)
[2021-11-03] MEDS: clonazePAM 0.5 MG TAB PO SCH (08:24)
[2021-11-03] MEDS: Dextrose 5 %-0.45 % NaCl 1,000 ML IV SCH (08:25)
[2021-11-03] MEDS: Enoxaparin Sodium 40 MG/0.4 ML SYRINGE SC SCH (08:25)
[2021-11-03] MEDS: buPROPion HCl 100 MG TAB PO SCH ×3 (08:25→19:52)
[2021-11-03] MEDS: Morphine 4 MG/ML VIAL SLOW IVP PRN (08:26)
[2021-11-03] MEDS ORDERED: traMADol HCl 50 MG TAB PO PRN (18:16)
[2021-11-03 19:50] VITALS: TEMP 97.6
[2021-11-04] MEDS: Levothyroxine Sodium 125 MCG TAB PO SCH (05:54)
[2021-11-04 09:08] VITALS: BP 133/80
[2021-11-04] MEDS: buPROPion HCl 100 MG TAB PO SCH (09:09)
[2021-11-04] MEDS: Enoxaparin Sodium 40 MG/0.4 ML SYRINGE SC SCH (09:10)
[2021-11-04] MEDS: clonazePAM 0.5 MG TAB PO SCH (09:10)
[2021-11-04] MEDS ORDERED: Cefdinir 300 MG CAP PO SCH (10:45)
== END 2021-11-04 13:28 | disposition home or self-care (01) | DRG 389 ==
LOC: MSONC 16:36
PROVIDERS: ADMIT Internal Medicine; ATTEND Internal Medicine
PROC: 3E03329 Introduction of Other Anti-infective into Peripheral Vein, Percutaneous Approach (ICD-10-PCS; 2021-10-31)
PROC: 0D9770Z Drainage of Stomach, Pylorus with Drainage Device, Via Natural or Artificial Opening (ICD-10-PCS; principal; 2021-11-01)
DX: K56.51 Intestinal adhesions [bands], with partial obstruction (principal); E87.0 Hyperosmolality and hypernatremia; N39.0 Urinary tract infection, site not specified; Z20.822 Contact with and (suspected) exposure to COVID-19; E03.9 Hypothyroidism, unspecified; F41.9 Anxiety disorder, unspecified; E78.5 Hyperlipidemia, unspecified; F32.A Depression, unspecified; K59.09 Other constipation; Z79.51 Long term (current) use of inhaled steroids; Z79.899 Other long term (current) drug therapy; Z79.890 Hormone replacement therapy; Z90.49 Acquired absence of other specified parts of digestive tract; Z98.84 Bariatric surgery status; Z98.890 Other specified postprocedural states; Z93.2 Ileostomy status; B96.89 Other specified bacterial agents as the cause of diseases classified elsewhere
CPT/HCPCS: 36415; 74018; 74250; 80048; 81001; 83735; 84100; 85025; 87077; 87086; 87186; J1650; J2270; J2405; J7042; J7050; Q9963

== ENCOUNTER 2022-02-21 21:02 | Emergency (ER) | payer MEDICARE, OTHER ==
[2022-02-22 00:46] LABS: #Lymphocytes 0.8 thou/uL (1.20-3.40); #Monocytes 0.8 thou/uL (0.11-0.59); #Neutrophils 4.8 thou/uL (1.40-6.50); %Basophils 0.2 % (0.0-1.0); %Eosinophils 0.2 % (0.0-10.0); %Lymphocytes 12.9 % (21.0-51.0); %Monocytes 12.5 % (0.0-10.0); %Neutrophils 74.1 % (42.0-75.0); Hemoglobin 11.6 g/dL (12.0-16.0); Mean Corpuscular HGB CONC 31.1 g/dL (32.0-36.0); Mean Corpuscular Hemoglobin 29.8 pg (27.0-31.0); Mean Corpuscular Volume 95.6 fL (78.0-98.0); Platelet Count 210 thou/uL (130-400); Red Blood Cell (RBC) Count 3.91 mill/uL (4.20-5.40); White Blood Cell (WBC) Count 6.4 thou/uL (4.8-10.8)
[2022-02-22 01:06] LABS: ALT (SGPT) 8 U/L (8-55); AST (SGOT) 17 U/L (5-34); Albumin 3.8 g/dL (3.4-4.8); Alkaline Phosphatase 83 U/L (40-110); Anion Gap 12 mmol/L (10-20); BUN (Urea Nitrogen) 16 mg/dL (9.8-20.1); Bilirubin, Total 0.8 mg/dL (0.2-1.2); Calc. Creatinine Clearance 0 mL/min (70-130); Calcium 8.9 mg/dL (7.8-10.44); Carbon Dioxide 27 mmol/L (23-31); Chloride 104 mmol/L (98-107); Globulin 3.6 g/dL (2.4-3.5); Glucose 108 mg/dL (83-110); Protein, Total 7.4 g/dL (5.8-8.1); Sodium 139 mmol/L (136-145)
[2022-02-22] MEDS ORDERED: Acetaminophen 500 MG TAB ONE (05:40)
== END 2022-02-22 06:12 ==
LOC: ERS 21:02
DX: N39.0 Urinary tract infection, site not specified (principal); R53.1 Weakness; E03.9 Hypothyroidism, unspecified; J45.909 Unspecified asthma, uncomplicated; E78.5 Hyperlipidemia, unspecified; E78.00 Pure hypercholesterolemia, unspecified; I10 Essential (primary) hypertension; M81.0 Age-related osteoporosis without current pathological fracture; D64.9 Anemia, unspecified; M19.90 Unspecified osteoarthritis, unspecified site
CPT/HCPCS: 36415; 71045; 80053; 85025; 93005

== ENCOUNTER 2022-04-22 10:04 | Inpatient (IN) | payer MEDICARE, OTHER ==
[2022-04-22] MEDS ORDERED: Ondansetron PF 4 MG/2 ML Vial ONE (11:31)
[2022-04-22] MEDS ORDERED: Morphine 4 MG/ML VIAL ONE (11:31)
[2022-04-22 11:48] LABS: #Lymphocytes 0.6 thou/uL (1.20-3.40); #Monocytes 0.5 thou/uL (0.11-0.59); #Neutrophils 6.9 thou/uL (1.40-6.50); %Eosinophils 0.3 % (0.0-10.0); %Lymphocytes 7.6 % (21.0-51.0); %Monocytes 6.5 % (0.0-10.0); %Neutrophils 85.6 % (42.0-75.0); Hemoglobin 12.4 g/dL (12.0-16.0); Mean Corpuscular HGB CONC 31.6 g/dL (32.0-36.0); Mean Corpuscular Hemoglobin 30.9 pg (27.0-31.0); Mean Corpuscular Volume 97.7 fL (78.0-98.0); Platelet Count 246 thou/uL (130-400); RBC Distribution Width 14.7 % (11.5-14.5); Red Blood Cell (RBC) Count 4.02 mill/uL (4.20-5.40); White Blood Cell (WBC) Count 8.1 thou/uL (4.8-10.8)
[2022-04-22 12:08] LABS: ALT (SGPT) 17 U/L (8-55); AST (SGOT) 20 U/L (5-34); Albumin 4.2 g/dL (3.4-4.8); Alkaline Phosphatase 80 U/L (40-110); Anion Gap 14 mmol/L (10-20); BUN (Urea Nitrogen) 16 mg/dL (9.8-20.1); Bilirubin, Total 0.4 mg/dL (0.2-1.2); Calc. Creatinine Clearance 0 mL/min (70-130); Calcium 9.2 mg/dL (7.8-10.44); Carbon Dioxide 29 mmol/L (23-31); Chloride 103 mmol/L (98-107); Estimated GFR 74; Globulin 3.3 g/dL (2.4-3.5); Glucose 114 mg/dL (83-110); Lipase 44 U/L (8-78); Potassium 3.8 mmol/L (3.5-5.1); Protein, Total 7.5 g/dL (5.8-8.1); Sodium 142 mmol/L (136-145)
[2022-04-22 12:17] LABS: Bacteria/HPF 1+ HPF (None Seen); Bilirubin Negative (Negative); Blood, Urine Negative (Negative); Clarity Clear (Clear); Glucose, Urine (Dipstick) Normal (Negative); Ketone, Urine Negative (Negative); Leukocyte Negative Leu/uL (Negative); Nitrite Negative (Negative); Protein, Urine (Dipstick) 30 mg/dL (Neg-Trace); RBC/HPF 0-3 HPF (0-3); Specific Gravity, Urine 1.028 (1.002-1.036); Squamous Epithelial 0-3 HPF (0-3); Urobilinogen Normal mg/dL (Less than 2); WBC/HPF 0-3 HPF (0-3); pH, Urine 5.5 (5.0-9.0)
[2022-04-22] MEDS ORDERED: Benzocaine 20% Spray 60 ML CAN ONE (13:38)
[2022-04-22] MEDS ORDERED: Lidocaine Viscous Sol 2% 15 ml UD Cup ONE (13:38)
[2022-04-22] MEDS ORDERED: Acetaminophen 325 MG TAB PO PRN (14:06)
[2022-04-22] MEDS ORDERED: Ondansetron ODT 4 MG TAB PO PRN (14:13)
[2022-04-22 14:27] LABS: SARS-CoV-2 NAA Rapid Test Not Detected (NotDetected)
[2022-04-22 16:33] VITALS: BMI 45.8
[2022-04-22] MEDS: Sodium Chloride 0.9% 1,000 ML IV SCH (16:49)
[2022-04-22] MEDS: Morphine 2 MG/ML VIAL SLOW IVP PRN ×2 (18:28→20:55)
[2022-04-22] MEDS: Ondansetron PF 4 MG/2 ML Vial IVP PRN (18:29)
[2022-04-23] MEDS: Ondansetron PF 4 MG/2 ML Vial IVP PRN (01:13)
[2022-04-23] MEDS: Sodium Chloride 0.9% 1,000 ML IV SCH ×3 (01:15→21:00)
[2022-04-23] MEDS: Morphine 2 MG/ML VIAL SLOW IVP PRN ×4 (03:32→19:45)
[2022-04-23 05:51] LABS: #Lymphocytes 0.5 thou/uL (1.20-3.40); #Monocytes 0.4 thou/uL (0.11-0.59); %Basophils 0.1 % (0.0-1.0); %Eosinophils 0.4 % (0.0-10.0); %Lymphocytes 10.4 % (21.0-51.0); %Monocytes 8.7 % (0.0-10.0); %Neutrophils 80.4 % (42.0-75.0); Hemoglobin 11.2 g/dL (12.0-16.0); Mean Corpuscular HGB CONC 31.3 g/dL (32.0-36.0); Mean Corpuscular Hemoglobin 30.4 pg (27.0-31.0); Mean Corpuscular Volume 96.9 fL (78.0-98.0); Mean Platelet Volume 6.7 fL (7.4-10.4); Platelet Count 204 thou/uL (130-400); RBC Distribution Width 14.7 % (11.5-14.5); Red Blood Cell (RBC) Count 3.69 mill/uL (4.20-5.40)
[2022-04-23 06:20] LABS: Anion Gap 11 mmol/L (10-20); BUN (Urea Nitrogen) 17 mg/dL (9.8-20.1); Calc. Creatinine Clearance 99 mL/min (70-130); Calcium 7.7 mg/dL (7.8-10.44); Carbon Dioxide 27 mmol/L (23-31); Chloride 108 mmol/L (98-107); Estimated GFR 81; Glucose 107 mg/dL (83-110); Potassium 3.7 mmol/L (3.5-5.1); Sodium 142 mmol/L (136-145)
[2022-04-23] MEDS: Hydrocortisone Sod Succ/PF 100 mg/2 ml Vial IVP SCH (08:36)
[2022-04-23] MEDS: Enoxaparin Sodium 40 MG/0.4 ML SYRINGE SC SCH (08:38)
[2022-04-23] MEDS: Pantoprazole 40 MG VIAL IVP SCH (08:38)
[2022-04-24 06:17] LABS: #Lymphocytes 0.6 thou/uL (1.20-3.40); #Monocytes 0.4 thou/uL (0.11-0.59); #Neutrophils 1.9 thou/uL (1.40-6.50); %Basophils 0.2 % (0.0-1.0); %Eosinophils 0.9 % (0.0-10.0); %Lymphocytes 21.4 % (21.0-51.0); %Monocytes 13.7 % (0.0-10.0); %Neutrophils 63.7 % (42.0-75.0); Hemoglobin 10.8 g/dL (12.0-16.0); Mean Corpuscular Hemoglobin 30.3 pg (27.0-31.0); Mean Corpuscular Volume 97.8 fL (78.0-98.0); Platelet Count 176 thou/uL (130-400); RBC Distribution Width 14.6 % (11.5-14.5); Red Blood Cell (RBC) Count 3.55 mill/uL (4.20-5.40); White Blood Cell (WBC) Count 2.9 thou/uL (4.8-10.8)
[2022-04-24 06:48] LABS: ALT (SGPT) 12 U/L (8-55); AST (SGOT) 18 U/L (5-34); Alkaline Phosphatase 62 U/L (40-110); Anion Gap 12 mmol/L (10-20); BUN (Urea Nitrogen) 15 mg/dL (9.8-20.1); Bilirubin, Direct 0.2 mg/dL (0.1-0.3); Bilirubin, Total 0.6 mg/dL (0.2-1.2); Calc. Creatinine Clearance 122 mL/min (70-130); Calcium 6.8 mg/dL (7.8-10.44); Carbon Dioxide 24 mmol/L (23-31); Chloride 109 mmol/L (98-107); Estimated GFR 90; Glucose 94 mg/dL (83-110); Magnesium 1.8 mg/dL (1.6-2.6); Potassium 3.1 mmol/L (3.5-5.1); Protein, Total 5.4 g/dL (5.8-8.1); Sodium 142 mmol/L (136-145)
[2022-04-24] MEDS ORDERED: Magnesium 2 GM/50 ML(in water) 4 GM in Premix Bag 1 BAG IVPB SCH (07:30)
[2022-04-24] MEDS ORDERED: Benzocaine 20% Spray 60 ML CAN PO SCH (08:30)
[2022-04-24] MEDS: Potassium Chloride 20 MEQ in Premix Bag 1 BAG IVPB SCH ×2 (08:58→11:17)
[2022-04-24] MEDS: Hydrocortisone Sod Succ/PF 100 mg/2 ml Vial IVP SCH (08:59)
[2022-04-24] MEDS: Enoxaparin Sodium 40 MG/0.4 ML SYRINGE SC SCH (08:59)
[2022-04-24] MEDS: Pantoprazole 40 MG VIAL IVP SCH (09:00)
[2022-04-24] MEDS ORDERED: Magnesium Sulfate In Water 4 GM in Premix Bag 1 BAG IVPB SCH (09:00)
[2022-04-24] MEDS: Sodium Chloride 0.9% 1,000 ML IV SCH ×2 (09:13→16:22)
[2022-04-24] MEDS ORDERED: MD-Gastroview 120 ML BOT ONE (09:30)
[2022-04-24] MEDS: Morphine 2 MG/ML VIAL SLOW IVP PRN ×2 (10:01→15:07)
[2022-04-24 10:32] LABS: Bilirubin Negative (Negative); Blood, Urine 3+ (Negative); Clarity Turbid (Clear); Glucose, Urine (Dipstick) Normal (Negative); Ketone, Urine 40 mg/dL (Negative); Leukocyte 500 Leu/uL (Negative); Nitrite Negative (Negative); Protein, Urine (Dipstick) 100 mg/dL (Neg-Trace); Specific Gravity, Urine 1.023 (1.002-1.036); Squamous Epithelial 0-3 HPF (0-3); Urobilinogen Normal mg/dL (Less than 2)
[2022-04-24 10:40] LABS: WBC/HPF 21-50 HPF (0-3)
[2022-04-24 10:41] LABS: Bacteria/HPF 4+ HPF (None Seen)
[2022-04-24 10:42] LABS: Urine Culture Reflex Yes Yes
[2022-04-24] MEDS ORDERED: Meropenem 1 GM in Sodium Chloride 0.9% 100 ML IVPB SCH (14:00)
[2022-04-24] MEDS: Ondansetron PF 4 MG/2 ML Vial IVP PRN (14:19)
[2022-04-24] MEDS: Meropenem 1 GM in Sodium Chloride 0.9% 100 ML IVPB SCH (21:47)
[2022-04-25] MEDS: Sodium Chloride 0.9% 1,000 ML IV SCH ×2 (04:00→11:48)
[2022-04-25 05:30] LABS: #Lymphocytes 0.7 thou/uL (1.20-3.40); #Monocytes 0.4 thou/uL (0.11-0.59); #Neutrophils 2.4 thou/uL (1.40-6.50); %Basophils 0.2 % (0.0-1.0); %Eosinophils 0.8 % (0.0-10.0); %Lymphocytes 18.5 % (21.0-51.0); %Monocytes 12.7 % (0.0-10.0); %Neutrophils 67.8 % (42.0-75.0); Hemoglobin 9.8 g/dL (12.0-16.0); Mean Corpuscular HGB CONC 31.5 g/dL (32.0-36.0); Mean Corpuscular Hemoglobin 30.7 pg (27.0-31.0); Mean Corpuscular Volume 97.5 fL (78.0-98.0); Platelet Count 169 thou/uL (130-400); RBC Distribution Width 14.7 % (11.5-14.5); Red Blood Cell (RBC) Count 3.18 mill/uL (4.20-5.40); White Blood Cell (WBC) Count 3.5 thou/uL (4.8-10.8)
[2022-04-25] MEDS: Meropenem 1 GM in Sodium Chloride 0.9% 100 ML IVPB SCH ×2 (06:03→15:10)
[2022-04-25 06:15] LABS: Anion Gap 11 mmol/L (10-20); BUN (Urea Nitrogen) 11 mg/dL (9.8-20.1); Calc. Creatinine Clearance 114 mL/min (70-130); Calcium 7.1 mg/dL (7.8-10.44); Carbon Dioxide 28 mmol/L (23-31); Chloride 106 mmol/L (98-107); Estimated GFR 88; Glucose 93 mg/dL (83-110); Magnesium 2.4 mg/dL (1.6-2.6); Potassium 3.4 mmol/L (3.5-5.1); Sodium 142 mmol/L (136-145)
[2022-04-25] MEDS: Enoxaparin Sodium 40 MG/0.4 ML SYRINGE SC SCH (08:58)
[2022-04-25] MEDS: Potassium Chloride 20 MEQ in Premix Bag 1 BAG IVPB SCH ×4 (08:58→22:35)
[2022-04-25] MEDS: Pantoprazole 40 MG VIAL IVP SCH (08:59)
[2022-04-25] MEDS: Hydrocortisone Sod Succ/PF 100 mg/2 ml Vial IVP SCH (08:59)
[2022-04-26] MEDS: Meropenem 1 GM in Sodium Chloride 0.9% 100 ML IVPB SCH ×2 (00:35→05:25)
[2022-04-26 06:14] LABS: #Lymphocytes 0.7 thou/uL (1.20-3.40); #Monocytes 0.3 thou/uL (0.11-0.59); #Neutrophils 2.2 thou/uL (1.40-6.50); %Basophils 0.2 % (0.0-1.0); %Eosinophils 0.9 % (0.0-10.0); %Lymphocytes 21.1 % (21.0-51.0); %Monocytes 10.5 % (0.0-10.0); %Neutrophils 67.2 % (42.0-75.0); Hemoglobin 10.3 g/dL (12.0-16.0); Mean Corpuscular HGB CONC 31.2 g/dL (32.0-36.0); Mean Corpuscular Hemoglobin 30.7 pg (27.0-31.0); Mean Corpuscular Volume 98.2 fL (78.0-98.0); Platelet Count 179 thou/uL (130-400); RBC Distribution Width 14.3 % (11.5-14.5); Red Blood Cell (RBC) Count 3.35 mill/uL (4.20-5.40); White Blood Cell (WBC) Count 3.2 thou/uL (4.8-10.8)
[2022-04-26] MEDS ORDERED: Non-Formulary Item 1 EACH (Albuterol Sulfate Hfa (Or) 200 PUFF Inh) FS PRN (06:14)
[2022-04-26] MEDS ORDERED: traMADol HCl 50 MG TAB PO PRN (06:14)
[2022-04-26] MEDS ORDERED: Albuterol Sulfate 2.5 mg/3 ml Neb NEB PRN (06:23)
[2022-04-26] MEDS ORDERED: Polyethylene Glycol OPTH DROP 15 ML BOT EA EYE PRN (06:28)
[2022-04-26 06:34] LABS: Anion Gap 12 mmol/L (10-20); BUN (Urea Nitrogen) 5 mg/dL (9.8-20.1); Calc. Creatinine Clearance 122 mL/min (70-130); Calcium 7.3 mg/dL (7.8-10.44); Carbon Dioxide 26 mmol/L (23-31); Chloride 106 mmol/L (98-107); Estimated GFR 90; Glucose 90 mg/dL (83-110); Magnesium 2.1 mg/dL (1.6-2.6); Potassium 3.9 mmol/L (3.5-5.1); Sodium 140 mmol/L (136-145)
[2022-04-26] MEDS ORDERED: Simethicone Chewable 80 MG TAB PO PRN (06:40)
[2022-04-26] MEDS ORDERED: predniSONE 5 MG TAB PO SCH (08:00)
[2022-04-26] MEDS ORDERED: predniSONE 20 MG TAB PO SCH (08:00)
[2022-04-26] MEDS: Pantoprazole 40 MG VIAL IVP SCH (08:39)
[2022-04-26] MEDS: Enoxaparin Sodium 40 MG/0.4 ML SYRINGE SC SCH (08:39)
[2022-04-26] MEDS: Sodium Chloride 0.9% 1,000 ML IV SCH (08:42)
[2022-04-26] MEDS ORDERED: Non-Formulary Item 1 EACH (Levothyroxine Sodium [Levothyroxine Sodium] 200 MCG Tablet) PO SCH (09:00)
[2022-04-26] MEDS ORDERED: Non-Formulary Item 1 EACH (Cetirizine Hcl [All Day Allergy] 10 MG Capsule) PO SCH (09:00)
[2022-04-26] MEDS ORDERED: Citalopram 20 MG TAB PO SCH (09:00)
[2022-04-26] MEDS ORDERED: Non-Formulary Item 1 EACH (Polyethylene Glycol 3350 [Miralax] 119 GM Bottle) PO SCH (09:00)
[2022-04-26] MEDS ORDERED: CALCIUM CARBONATE PO SCH (09:00)
[2022-04-26] MEDS ORDERED: FISH OIL PO SCH (09:00)
[2022-04-26] MEDS ORDERED: Fish Oil 1,000 MG CAP PO SCH (09:00)
[2022-04-26] MEDS ORDERED: [UNRECOGNIZED DRUG - OTHER] PO SCH (09:00)
[2022-04-26] MEDS ORDERED: Loratadine 10 MG TAB PO SCH (09:00)
[2022-04-26] MEDS ORDERED: VITAMIN D3 PO SCH (09:00)
[2022-04-26] MEDS ORDERED: Calcium Carbonate 600 MG TAB PO SCH (09:00)
[2022-04-26] MEDS ORDERED: Polyethylene Glycol 3350 17 GM Packet PO SCH (09:00)
[2022-04-26] MEDS ORDERED: Gabapentin 300 MG CAP PO SCH (09:00)
[2022-04-26] MEDS ORDERED: DHA PO SCH (09:00)
[2022-04-26] MEDS ORDERED: EPA PO SCH (09:00)
[2022-04-26] MEDS ORDERED: Amoxicillin/Potassium Clav 500 MG TAB PO SCH (09:00)
[2022-04-26] MEDS ORDERED: buPROPion HCl 100 MG TAB PO SCH (09:00)
[2022-04-26] MEDS ORDERED: [UNRECOGNIZED DRUG - OTHER] PO SCH (09:00)
[2022-04-26] MEDS ORDERED: clonazePAM 0.5 MG TAB PO SCH (09:00)
[2022-04-26] MEDS ORDERED: OMEGA PO SCH (09:00)
[2022-04-26 12:04] VITALS: BP 124/77; TEMP 98.2
[2022-04-27] MEDS ORDERED: Levothyroxine Sodium 125 MCG TAB PO SCH (06:00)
== END 2022-04-26 14:15 | disposition home or self-care (01) | DRG 389 ==
LOC: ERS 10:04 → SURG B 13:30
PROVIDERS: ADMIT Family Medicine; ATTEND Family Medicine
PROC: 0D9670Z Drainage of Stomach with Drainage Device, Via Natural or Artificial Opening (ICD-10-PCS; principal; 2022-04-22)
DX: K56.600 Partial intestinal obstruction, unspecified as to cause (principal); N39.0 Urinary tract infection, site not specified; Z20.822 Contact with and (suspected) exposure to COVID-19; E03.9 Hypothyroidism, unspecified; J45.909 Unspecified asthma, uncomplicated; F41.9 Anxiety disorder, unspecified; M81.0 Age-related osteoporosis without current pathological fracture; M35.3 Polymyalgia rheumatica; F32.A Depression, unspecified; B96.4 Proteus (mirabilis) (morganii) as the cause of diseases classified elsewhere; Z98.890 Other specified postprocedural states; Z93.2 Ileostomy status; Z90.49 Acquired absence of other specified parts of digestive tract; Z79.899 Other long term (current) drug therapy; Z79.890 Hormone replacement therapy; Z87.440 Personal history of urinary (tract) infections
CPT/HCPCS: 36415; 71045; 74177; 74250; 80048; 80053; 80076; 81001; 81003; 81015; 83605; 83690; 83735; 85025; 87077; 87086; 87186; 96361; 96374; 96375; C9113; J1650; J1720; J2185; J2270; J2405; J3475; J3480; J3490; J7050; J7512; Q9963; Q9967; U0002

== ENCOUNTER 2022-11-14 09:20 | Outpatient (CLI) | payer MEDICARE, OTHER ==
[2022-11-14] MEDS ORDERED: Magnevist 469MG/ML 20 ML VIAL ONE (09:33)
== END 2022-11-14 09:21 | disposition home or self-care (01) ==
LOC: TBSIIMAG 09:20
PROVIDERS: ATTEND Neurological Surgery
DX: D32.9 Benign neoplasm of meninges, unspecified (principal); R22.0 Localized swelling, mass and lump, head
CPT/HCPCS: 70553; 82565; A9579

== ENCOUNTER 2024-09-20 08:21 | Observation (INO) | payer MEDICARE, OTHER ==
[2024-09-20] MEDS ORDERED: Bisacodyl 10 MG SUPP PR PRN (10:01)
[2024-09-20] MEDS ORDERED: Acetaminophen 325 MG TAB PO PRN (10:01)
[2024-09-20] MEDS ORDERED: Ondansetron PF 4 MG/2 ML Vial IVP PRN (10:01)
[2024-09-20] MEDS ORDERED: Senokot S 8.6-50 MG TAB PO PRN (10:01)
[2024-09-20] MEDS ORDERED: Bisacodyl 5 MG TAB PO PRN (10:01)
[2024-09-20] MEDS ORDERED: Morphine 2 MG/ML VIAL SLOW IVP PRN (10:04)
[2024-09-20 10:15] VITALS: BMI 51.5
[2024-09-20] MEDS: Lactated Ringer's 1,000 ML IV SCH (10:45)
[2024-09-20] MEDS ORDERED: traMADol HCl 50 MG TAB PO PRN (17:05)
[2024-09-20] MEDS ORDERED: Simethicone Chewable 80 MG TAB PO PRN (17:12)
[2024-09-20] MEDS ORDERED: Ketotifen 0.035% Ophth Soln 5 ml Bottle EA EYE PRN (17:15)
[2024-09-20 18:04] LABS: Influenza A by NAA Not Detected (NotDetected); Influenza B by NAA Not Detected (NotDetected); RSV by NAA Not Detected (NotDetected); SARS-CoV-2 NAA Rapid Test Not Detected (NotDetected)
[2024-09-20] MEDS: Gabapentin 300 MG CAP PO SCH (21:03)
[2024-09-20] MEDS: buPROPion HCl 100 MG TAB PO SCH (21:03)
[2024-09-20] MEDS: Famotidine/PF 20 mg/2ml Vial SLOW IVP SCH (21:03)
[2024-09-20] MEDS: Calcium Carbonate 600 MG + Vit D TAB PO SCH (21:03)
[2024-09-21 05:09] LABS: ALT (SGPT) 9 U/L (8-55); AST (SGOT) 16 U/L (5-34); Albumin 2.8 g/dL (3.4-4.8); Alkaline Phosphatase 79 U/L (40-110); Anion Gap 11 mmol/L (10-20); BUN (Urea Nitrogen) 7 mg/dL (9.8-20.1); Bilirubin, Direct 0.3 mg/dL (0.1-0.3); Bilirubin, Total 0.7 mg/dL (0.2-1.2); Calc. Creatinine Clearance 119 mL/min (70-130); Calcium 8.1 mg/dL (7.8-10.44); Carbon Dioxide 26 mmol/L (23-31); Chloride 110 mmol/L (98-107); Estimated GFR 87; Glucose 94 mg/dL (83-110); Magnesium 1.8 mg/dL (1.6-2.6); Potassium 3.7 mmol/L (3.5-5.1); Sodium 143 mmol/L (136-145)
[2024-09-21] MEDS: Levothyroxine 150 MCG TAB PO SCH (06:04)
[2024-09-21] MEDS: Vit A,C & E/Lutein/Minerals Tablet PO SCH (09:02)
[2024-09-21] MEDS: Citalopram 20 MG TAB PO SCH (09:03)
[2024-09-21] MEDS: Fish Oil 1,000 MG CAP PO SCH (09:03)
[2024-09-21] MEDS: CO Q-10 CAPSULE 100 MG PO SCH (09:03)
[2024-09-21] MEDS: Loratadine 10 MG TAB PO SCH (09:04)
[2024-09-21] MEDS: clonazePAM 0.5 MG TAB PO SCH (09:04)
[2024-09-21] MEDS: Famotidine/PF 20 mg/2ml Vial SLOW IVP SCH (09:05)
[2024-09-21] MEDS: Multivitamin w/Zinc Stress 1 TAB PO SCH (09:05)
[2024-09-21] MEDS: Polyethylene Glycol 3350 17 GM Packet PO SCH (09:06)
[2024-09-21] MEDS: Vit B12/Folic Acid/B6/Aa No.15 [Glycotrol Capsule] 1 CAP PO SCH (09:30)
[2024-09-21 12:46] VITALS: BP 149/87; TEMP 97.4
== END 2024-09-21 15:23 | disposition home or self-care (01) ==
LOC: SURG B 09:59
PROVIDERS: ADMIT Family Medicine; ATTEND Internal Medicine
DX: R10.9 Unspecified abdominal pain (principal); R11.2 Nausea with vomiting, unspecified; I10 Essential (primary) hypertension; E03.9 Hypothyroidism, unspecified; F41.9 Anxiety disorder, unspecified; F32.A Depression, unspecified; J45.909 Unspecified asthma, uncomplicated; Z98.84 Bariatric surgery status; Z90.49 Acquired absence of other specified parts of digestive tract; Z98.890 Other specified postprocedural states; Z79.890 Hormone replacement therapy; Z79.899 Other long term (current) drug therapy
CPT/HCPCS: 0241U; 80048; 80076; 83735; 84443; 96374; 96376; G0378 ×2; J3490 ×2; J7120 ×2; 36415

== ENCOUNTER 2025-05-02 16:01 | Inpatient (IN) | payer MEDICARE, OTHER ==
[~2025-05-02 16:01] MED LIST changes: +Iopamidol 370 76% 100 ML VIAL ONE; -Iopamidol-370 76% 500 ML 1 ML ONE
[2025-05-02] MEDS ORDERED: Ondansetron PF 4 MG/2 ML Vial ONE (16:25)
[2025-05-02 16:30] LABS: #Basophils Less than 0.03 10x3/uL (0.0-0.2); #Eosinophils Less than 0.03 10x3/uL (0.0-0.7); #Monocytes 0.47 10x3/uL (0.11-0.59); #Neutrophils 6.54 10x3/uL (1.40-6.50); %Basophils 0.1 % (0.0-1.0); %Eosinophils 0.1 % (0.0-10.0); %Lymphocytes 4.9 % (21.0-51.0); %Monocytes 6.3 % (0.0-10.0); %Neutrophils 88.3 % (42.0-75.0); Hematocrit 40.8 % (36.0-47.0); Hemoglobin 12.4 g/dL (12.0-16.0); Mean Corpuscular Hemoglobin 29.7 pg (27.0-31.0); Mean Corpuscular Volume 97.6 fL (78.0-98.0); Platelet Count 167 10x3/uL (130-400); Red Blood Cell (RBC) Count 4.18 mill/uL (4.20-5.40); White Blood Cell (WBC) Count 7.41 10x3/uL (4.8-10.8)
[2025-05-02 16:43] LABS: INR-International Normal Ratio 1.1; PTT 31.8 sec (22.9-36.1); Prothrombin Time 14.7 sec (12.0-14.7)
[2025-05-02 16:49] LABS: ALT (SGPT) 20 U/L (Less than 34); AST (SGOT) 30 U/L (11-34); Albumin 3.8 g/dL (3.1-4.5); Alkaline Phosphatase 102 U/L (40-110); Anion Gap 18 mmol/L (10-20); BUN (Urea Nitrogen) 13 mg/dL (9.8-20.1); Bilirubin, Total 0.5 mg/dL (0.3-1.2); Calc. Creatinine Clearance 0 mL/min (70-130); Calcium 9.1 mg/dL (7.8-10.44); Carbon Dioxide 23 mmol/L (23-31); Chloride 106 mmol/L (98-107); Globulin 3.3 g/dL (2.4-3.5); Glucose 125 mg/dL (83-110); Lipase 25 U/L (8-78); Magnesium 2.2 mg/dL (1.6-2.6); Potassium 4.7 mmol/L (3.5-5.1); Sodium 142 mmol/L (136-145)
[2025-05-02] MEDS ORDERED: Benzocaine 20% Spray 60 ML CAN ONE (19:52)
[2025-05-02] MEDS ORDERED: Ondansetron HCl/PF 8 MG in Sodium Chloride 0.9% 50 ML IVPB PRN (20:45)
[2025-05-02 22:33] VITALS: BMI 49.9
[2025-05-02] MEDS: clonazePAM 0.5 MG TAB PO SCH (23:00)
[2025-05-03] MEDS: Famotidine/PF 20 mg/2ml Vial SLOW IVP SCH (09:31)
[2025-05-03] MEDS: Citalopram 20 MG TAB PO SCH (09:31)
[2025-05-03] MEDS: Enoxaparin 40 MG (0.4 mL) SYRINGE SC SCH (09:31)
[2025-05-03] MEDS: Pantoprazole 40 MG VIAL IVP SCH (09:31)
[2025-05-03] MEDS: Ketorolac Tromethamine 30 MG (1 mL) VIAL IVP SCH ×2 (10:56→18:14)
[2025-05-04 06:29] LABS: #Basophils Less than 0.03 10x3/uL (0.0-0.2); #Eosinophils 0.04 10x3/uL (0.0-0.7); #Monocytes 0.48 10x3/uL (0.11-0.59); #Neutrophils 4.14 10x3/uL (1.40-6.50); %Basophils 0.2 % (0.0-1.0); %Eosinophils 0.8 % (0.0-10.0); %Lymphocytes 11.2 % (21.0-51.0); %Monocytes 9.1 % (0.0-10.0); %Neutrophils 78.3 % (42.0-75.0); Hematocrit 34.3 % (36.0-47.0); Hemoglobin 10.0 g/dL (12.0-16.0); Mean Corpuscular Hemoglobin 29.3 pg (27.0-31.0); Mean Corpuscular Volume 100.6 fL (78.0-98.0); Platelet Count 125 10x3/uL (130-400); Red Blood Cell (RBC) Count 3.41 mill/uL (4.20-5.40); White Blood Cell (WBC) Count 5.28 10x3/uL (4.8-10.8)
[2025-05-04 07:14] LABS: ALT (SGPT) 10 U/L (Less than 34); AST (SGOT) 20 U/L (11-34); Albumin 2.7 g/dL (3.1-4.5); Alkaline Phosphatase 73 U/L (40-110); Anion Gap 13 mmol/L (10-20); BUN (Urea Nitrogen) 18 mg/dL (9.8-20.1); Bilirubin, Total 0.7 mg/dL (0.3-1.2); Calc. Creatinine Clearance 107 mL/min (70-130); Calcium 7.6 mg/dL (7.8-10.44); Carbon Dioxide 25 mmol/L (23-31); Chloride 111 mmol/L (98-107); Globulin 2.9 g/dL (2.4-3.5); Glucose 87 mg/dL (83-110); Magnesium 2.0 mg/dL (1.6-2.6); Potassium 3.8 mmol/L (3.5-5.1); Sodium 145 mmol/L (136-145)
[2025-05-04] MEDS ORDERED: Famotidine/PF 20 mg/2ml Vial SLOW IVP SCH (10:30)
[2025-05-04] MEDS: Famotidine/PF 20 mg/2ml Vial SLOW IVP SCH (21:22)
[2025-05-05 06:03] LABS: Anion Gap 9 mmol/L (10-20); BUN (Urea Nitrogen) 12 mg/dL (9.8-20.1); Calc. Creatinine Clearance 114 mL/min (70-130); Calcium 7.9 mg/dL (7.8-10.44); Carbon Dioxide 26 mmol/L (23-31); Chloride 108 mmol/L (98-107); Glucose 95 mg/dL (83-110); Magnesium 1.7 mg/dL (1.6-2.6); Potassium 3.4 mmol/L (3.5-5.1); Sodium 140 mmol/L (136-145)
[2025-05-05] MEDS: Magnesium 2 GM/50 ML(in water) 2 GM in Premix 1 BAG IVPB SCH (08:39)
[2025-05-05] MEDS: Potassium Chloride 20 MEQ in Premix 1 BAG IVPB SCH (10:13)
[2025-05-05 11:47] VITALS: BP 168/80; TEMP 97.7
== END 2025-05-05 18:01 | disposition home or self-care (01) | DRG 389 ==
LOC: ERS 16:01 → OBSVTOIN 20:32 → T4-A 20:32
PROVIDERS: ADMIT Internal Medicine; ATTEND Internal Medicine
DX: K56.699 Other intestinal obstruction unspecified as to partial versus complete obstruction (principal); K90.829 Short bowel syndrome, unspecified; I10 Essential (primary) hypertension; E78.5 Hyperlipidemia, unspecified; M19.90 Unspecified osteoarthritis, unspecified site; Z93.2 Ileostomy status; E03.9 Hypothyroidism, unspecified; Z98.890 Other specified postprocedural states; Z90.49 Acquired absence of other specified parts of digestive tract; F32.A Depression, unspecified; F41.9 Anxiety disorder, unspecified; K43.9 Ventral hernia without obstruction or gangrene; Z79.899 Other long term (current) drug therapy; Z79.890 Hormone replacement therapy
CPT/HCPCS: 36415; 71045; 74018; 74177; 80048; 80053; 83605; 83690; 83735; 83880; 84484; 85025; 85610; 85730; 86850; 86900; 86901; 87040; 93005; 96361; 96374; 96375; 96376; J1308; J1650; J1885; J2270; J2405; J2470; J3475; J3480; J7120; Q9967

== ENCOUNTER 2025-05-25 13:43 | Outpatient (CLI) | payer MEDICARE, OTHER | END 2025-05-25 13:44 | disposition home or self-care (01) | LOC: SCSRAD 13:43 | PROVIDERS: ATTEND Nurse Practitioner Family | DX: R05.1 Acute cough (principal) | CPT/HCPCS: 71046 ==